=== PATIENT | female | born 1990 | race African-American/Black ===

== ENCOUNTER 2016-11-09 18:51 | Emergency (ER) | payer MEDICAID, OTHER ==
[2016-11-09] MEDS ORDERED: PENICILLIN G BENZATHINE 1.2 MILLION UNIT/2 ML DISP.SYRIN IM ONE (19:49)
[2016-11-09] MEDS ORDERED: DEXAMETHASONE SOD PHOS INJ 10 MG/1 ML VIAL IM ONE (19:50)
[2016-11-09] MEDS ORDERED: IBUPROFEN 800 MG TABLET PO ONE (19:50)
--- NOTE | 2016-11-09 19:51 | ER Document Report ---
HPI - HPI Patient complains to provider of: sore throat, fever, headache Onset: Yesterday Onset/Duration: Sudden Quality of pain: Achy Severity: Severe Pain Level: 5 Context: Patient presents emergency department with complaints of sore throat headache fever started yesterday. Patient reports she went to urgent care and they sent her here. Patient received Tylenol before coming over here. She reports fever but has not been taking her temperature. On arrival her temperature was 101. Unknown exposure to strep. Denies vomiting diarrhea. Associated Symptoms: Fever, Sore throat Exacerbated by: Denies Relieved by: Denies Similar symptoms previously: Yes Recently seen / treated by doctor: Yes - DERM Skin Color: Normal Past Medical History - General Information source: Patient Last Menstrual Period: last month - Social History Smoking Status: Unknown if Ever Smoked Cigarette use (# per day): No Frequency of alcohol use: None Drug Abuse: None Occupation: student Lives with: Family Family History: None Patient has suicidal ideation: No Patient has homicidal ideation: No - Medical History Medical History: Negative Renal/ Medical History: Denies: Hx Peritoneal Dialysis Surgical Hx: Negative Vertical Provider Document - CONSTITUTIONAL Agree With Documented VS: Yes Exam Limitations: No Limitations General Appearance: WD/WN, No Apparent Distress - INFECTION CONTROL TRAVEL OUTSIDE OF THE [place] IN LAST 30 DAYS: No - HEENT HEENT: Atraumatic, Normocephalic, PERRLA, Pharyngeal Exudate, Pharyngeal Erythema - No peritonsillar abscess good clear voice no trismus, opens mouth wide. negative: Conjuctival Injection - NECK Neck: Normal Inspection, Supple. negative: Lymphadenopathy-Left, Lymphadenopathy-Right - RESPIRATORY Respiratory: Breath Sounds Normal, No Respiratory Distress O2 Sat by Pulse Oximetry: 97 - CARDIOVASCULAR Cardiovascular: Regular Rhythm - GI/ABDOMEN Gastrointestinal: Abdomen Soft, Abdomen Non-Tender - BACK Back: Normal Inspection - MUSCULOSKELETAL/EXTREMETIES Musculoskeletal/Extremeties: SIDNEY OWUSU - NEURO Level of Consciousness: Awake, Alert, Appropriate Motor/Sensory: No Motor Deficit - DERM Integumentary: Warm, Dry Course - Re-evaluation Re-evalutation: 11/10/16 Patient instructed on the importance of monitoring temperature is taking Tylenol or Motrin as indicated. Patient was also instructed on importance of changing her toothbrush. She was instructed that strep throat is very contagious. She verbalized understanding to all instructions. - Vital Signs Vital signs: Temp Pulse Resp BP Pulse Ox 101.7 F H 110 H 16 104/59 L 97 11/09/16 18:55 11/09/16 18:55 11/09/16 18:55 11/09/16 18:55 11/09/16 18:55 Discharge - Discharge Clinical Impression: Tonsillar exudate, Sore throat Fever Qualifiers: Fever type: unspecified Qualified Code(s): R50.9 - Fever, unspecified Headache Qualifiers: Headache chronicity pattern: unspecified pattern Intractability: not intractable Condition: Stable Disposition: HOME, SELF-CARE Instructions: Fever ([facility]), Penicillins ([facility]), Steroid Medication Injection, Acetaminophen, Use of [id number]-Ipstfam Ibuprofen ([facility]), Sore Throat ([facility]) Additional Instructions: *You have been evaluated for a sore throat, tonsillar exudate, fever, headache *Monitor temperature, take Tylenol or ibuprofen as indicated *Warm salt water gargles and throat lozenges for comfort *Change toothbrush *Do not let anyone drink/eat after you *Good hand washing *Follow-up with a primary care provider within one week for recheck. *Return to ED for worsening condition change, needs, concerns trouble breathing trouble swallowing. Forms: Parent Work Note, Return to School
[2016-11-09 20:43] VITALS: BP 102/52
== END 2016-11-09 20:43 | disposition home or self-care (01) ==
LOC: ER 18:51
DX: J02.9 Acute pharyngitis, unspecified (principal); R51 Headache; R50.9 Fever, unspecified
CPT/HCPCS: 99282; 96372; J0561; J1100

== ENCOUNTER 2016-11-23 03:39 | Emergency (ER) | payer OTHER ==
[2016-11-23] MEDS ORDERED: LIDOCAINE 1% INJ-PF (10 MG/ML) 30 ML SDV INJ ONE (06:13)
--- NOTE | 2016-11-23 08:27 | ER Document Report ---
ED General - General Chief Complaint: Finger Injury Stated Complaint: LEFT HAND INJURY Time Seen by Provider: 11/23/16 06:10 Mode of Arrival: Ambulatory Information source: Patient Notes: 26-year-old female presents with crush injury to her left hand ring finger. Patient notes her nail appears to be hanging off. Tetanus is up-to-date TRAVEL OUTSIDE OF THE [place] IN LAST 30 DAYS: No - HPI Onset: Just prior to arrival Onset/Duration: Sudden Quality of pain: Sharp Severity: Moderate Pain Level: 2 Associated symptoms: None Exacerbated by: Movement Relieved by: Denies Similar symptoms previously: No Recently seen / treated by doctor: No - Related Data Allergies/Adverse Reactions: No Known Allergies Allergy (Unverified 11/09/16 18:55) Past Medical History - Social History Smoking Status: Never Smoker Cigarette use (# per day): No Chew tobacco use (# tins/day): No Smoking Education Provided: No Family History: None Patient has suicidal ideation: No Patient has homicidal ideation: No Renal/ Medical History: Denies: Hx Peritoneal Dialysis Review of Systems - Review of Systems Notes: PHYSICAL EXAMINATION: GENERAL: Well-appearing, well-nourished and in no acute distress. HEAD: Atraumatic, normocephalic. EYES: Pupils equal round and reactive to light, extraocular movements intact, conjunctiva are normal. ENT: Nares patent, oropharynx clear without exudates. Moist mucous membranes. NECK: Normal range of motion, supple without lymphadenopathy LUNGS: Breath sounds clear to auscultation bilaterally and equal. No wheezes rales or rhonchi. HEART: Regular rate and rhythm without murmurs ABDOMEN: Soft, nontender, nondistended abdomen. No guarding, no rebound. No masses appreciated. Female : deferred Musculoskeletal: Normal range of motion, no pitting or edema. No cyanosis. NEUROLOGICAL: Cranial nerves grossly intact. Normal speech, normal gait. Normal sensory, motor exams PSYCH: Normal mood, normal affect. SKIN: left hand 5th digit small abrasion to the lateral aspect of the distal tip , left hand 4th digit avulsion injury proximal ot the nail bed measuring 3 cm Physical Exam - Vital signs Vitals: Temp Pulse Resp BP Pulse Ox 98.4 F 74 18 114/65 98 11/23/16 03:47 11/23/16 03:47 11/23/16 03:47 11/23/16 03:47 11/23/16 03:47 Course - Re-evaluation Re-evalutation: 11/23/16 08:30 X-ray is consistent with a tuft fracture, no bleeding or laceration is noted under the nail itself however there is an avulsion behind the nailbed, I have explained to the patient thoroughly that she will probably lose the nail, area was cleansed extensively sutures were placed. Patient will be started on antibiotics very strict return precautions have been provided but given presentation I have poor prognosis for the aspect distally of the finger, I will give the patient orthopedic follow-up Patient states she understands the risks of her injury After performing a Medical Screening Examination, I estimate there is LOW risk for INTRACRANIAL HEMORRHAGE, UNSTABLE SPINE FRACTURE, CENTRAL CORD SYNDROME, CAUDA EQUINA, THORACIC AORTIC DISSECTION, PNEUMOTHORAX, PERFORATED BOWEL, RUPTURED ABDOMINAL AORTIC ANEURYSM, ACUTE TENDON RUPTURE, COMPARTMENT SYNDROME, thus I consider the discharge disposition reasonable. Also, there is no evidence or peritonitis, sepsis, or toxicity. I have reevaluated this patient multiple times and no significant life threatening changes are noted. The patient and I have discussed the diagnosis and risks, and we agree with discharging home to follow-up with their primary doctor with the understanding that symptoms and presentations can change. We also discussed returning to the Emergency Department immediately if new or worsening symptoms occur. We have discussed the symptoms which are most concerning (e.g., bloody stool, fever, changing or worsening pain, vomiting) that necessitate immediate return. - Vital Signs Vital signs: Temp Pulse Resp BP Pulse Ox 98.4 F 74 18 114/65 98 11/23/16 03:47 11/23/16 03:47 11/23/16 03:47 11/23/16 03:47 11/23/16 03:47 - Diagnostic Test Radiology reviewed: Image reviewed, Reports reviewed - tuft fracture, report given to the patient Discharge - Discharge Clinical Impression: Crush injury Closed fracture of tuft of distal phalanx of finger Qualifiers: Encounter type: initial encounter Qualified Code(s): S62.639A - Displaced fracture of distal phalanx of unspecified finger, initial encounter for closed fracture Laceration of finger Qualifiers: Encounter type: initial encounter Qualified Code(s): S61.219A - Laceration without foreign body of unspecified finger without damage to nail, initial encounter Condition: Stable Disposition: HOME, SELF-CARE Instructions: Laceration Care ([facility]), Antibiotic Ointment Protection ([facility]) Prescriptions: Cephalexin Monohydrate [Keflex 500 mg Capsule] 500 mg PO QID #40 capsule Oxycodone HCl/Acetaminophen [Percocet 5-325 mg Tablet] 1 - 2 tab PO Q4H PRN #15 tablet PRN Reason: Referrals: BRIANNA MARMOLEJO DO [ACTIVE STAFF] - Follow up tomorrow
[2016-11-23 08:32] VITALS: BP 100/56
== END 2016-11-23 08:32 | disposition home or self-care (01) ==
LOC: ER 03:39
PROC: 0HQGXZZ Repair Left Hand Skin, External Approach (ICD-10-PCS; principal; 2016-11-23)
DX: S62.639A Displaced fracture of distal phalanx of unspecified finger, initial encounter for closed fracture (principal); S61.219A Laceration without foreign body of unspecified finger without damage to nail, initial encounter; X58.XXXA Exposure to other specified factors, initial encounter
CPT/HCPCS: 99283; 73130; 12002; J3490

== ENCOUNTER 2016-12-08 09:31 | Emergency (ER) | payer OTHER ==
--- NOTE | 2016-12-08 09:39 | ER Document Report ---
ED Medical Screen (RME) - General Stated Complaint: ABDOMINAL CRAMPING Time Seen by Provider: 12/08/16 09:39 Notes: Patient says that she had some pelvic cramping yesterday and then noticed some spotting this morning when she wiped with toilet paper. She had her last cycle at the end of October and believe she is . G4, P1, a 2. No care yet. History of a D&C but no other pelvic surgeries. On no regular prescription medications. TRAVEL OUTSIDE OF THE [place] IN LAST 30 DAYS: No - Related Data Allergies/Adverse Reactions: No Known Allergies Allergy (Unverified 11/09/16 18:55) Past Medical History Renal/ Medical History: Denies: Hx Peritoneal Dialysis Physical Exam - Vital signs Vitals: Temp Pulse Resp BP Pulse Ox 98.2 F 73 16 113/61 100 12/08/16 09:35 12/08/16 09:35 12/08/16 09:35 12/08/16 09:35 12/08/16 09:35 Course - Vital Signs Vital signs: Temp Pulse Resp BP Pulse Ox 98.2 F 73 16 113/61 100 12/08/16 09:35 12/08/16 09:35 12/08/16 09:35 12/08/16 09:35 12/08/16 09:35
--- NOTE | 2016-12-08 10:47 | ER Document Report ---
ED GI/ - General Chief Complaint: Abdominal Cramping Stated Complaint: ABDOMINAL CRAMPING Time Seen by Provider: 12/08/16 09:39 Mode of Arrival: Ambulatory Information source: Patient TRAVEL OUTSIDE OF THE [place] IN LAST 30 DAYS: No - HPI Patient complains to provider of: Pelvic pain, , Vaginal bleeding Onset: Yesterday Timing/Duration: Intermittent Quality of pain: Cramping Severity at maximum: Mild Severity in ED: Mild Pain Level: 1 Location: Pelvis Vaginal bleeding (Compared to normal period): Spotting Menstrual period history: Associated symptoms: None Exacerbated by: Denies Relieved by: Denies Similar symptoms previously: Yes Recently seen / treated by doctor: No Notes: 12/08/16 10:46 Patient is a 26-year-old female who presents to the emergency room complaining of, and vaginal bleeding started yesterday, she reports being with her last menstrual period sometime in late November, she is with denies any nausea or vomiting, no fever or chills, no urinary symptoms, h/o prior D&C - Related Data Allergies/Adverse Reactions: No Known Allergies Allergy (Unverified 11/09/16 18:55) Past Medical History - General Information source: Patient - Social History Smoking Status: Unknown if Ever Smoked Family History: None Patient has suicidal ideation: No Patient has homicidal ideation: No Renal/ Medical History: Denies: Hx Peritoneal Dialysis Review of Systems - Review of Systems Constitutional: No symptoms reported EENT: No symptoms reported Cardiovascular: No symptoms reported Respiratory: No symptoms reported Gastrointestinal: No symptoms reported Genitourinary: No symptoms reported Female Genitourinary: See HPI Musculoskeletal: No symptoms reported Skin: No symptoms reported Hematologic/Lymphatic: No symptoms reported Neurological/Psychological: No symptoms reported -: Yes All other systems reviewed and negative Physical Exam - Vital signs Vitals: Temp Pulse Resp BP Pulse Ox 98.2 F 73 16 113/61 100 12/08/16 09:35 12/08/16 09:35 12/08/16 09:35 12/08/16 09:35 12/08/16 09:35 Interpretation: Normal - General General appearance: Appears well, Alert - HEENT Head: Normocephalic, Atraumatic Eyes: Normal Pupils: PERRL - Respiratory Respiratory status: No respiratory distress Chest status: Nontender Breath sounds: Normal Chest palpation: Normal - Cardiovascular Rhythm: Regular Heart sounds: Normal auscultation Murmur: No - Abdominal Inspection: Normal Distension: No distension Bowel sounds: Normal Tenderness: Nontender Organomegaly: No organomegaly - Back Back: Normal, Nontender - Extremities General upper extremity: Normal inspection, Nontender, Normal color, Normal ROM , Normal temperature General lower extremity: Normal inspection, Nontender, Normal color, Normal ROM , Normal temperature, Normal weight bearing. No: Jj's sign - Neurological Neuro grossly intact: Yes Cognition: Normal Orientation: AAOx4 Donya Coma Scale Eye Opening: Spontaneous Donya Coma Scale Verbal: Oriented [place] Coma Scale Motor: Obeys Commands Donya Coma Scale Total: 15 Speech: Normal Motor strength normal: LUE, RUE, LLE, RLE Sensory: Normal - Psychological Associated symptoms: Normal affect, Normal mood - Skin Skin Temperature: Warm Skin Moisture: Dry Skin Color: Normal Course - Re-evaluation Re-evalutation: 12/08/16 11:42 Lab and imaging findings were discussed with patient at bedside, she was advised to follow-up with HVAC SERVICE MANAGER within the next week, she reports she actually has an appointment with [facility] coming [facility], patient was advised to return if symptoms worsen, patient acknowledges understanding and agreement with this plan - Vital Signs Vital signs: Temp Pulse Resp BP Pulse Ox 98.2 F 73 16 113/61 100 12/08/16 09:35 12/08/16 09:35 12/08/16 09:35 12/08/16 09:35 12/08/16 09:35 - Laboratory Result Diagrams: 12/08/16 10:30 Laboratory results interpreted by me: 12/08/16 12/08/16 10:30 10:30 RDW 15.1 H Urine Urobilinogen 2.0 H - Diagnostic Test Radiology reviewed: Image reviewed, Reports reviewed Discharge - Discharge Clinical Impression: Vaginal bleeding before 22 weeks gestation Condition: Stable Disposition: HOME, SELF-CARE Instructions: Vaginal Bleeding ([facility]), Bleeding During Early ([facility]), Pelvic Pain in ([facility]), ([facility]), [employer]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 Return to the emergency room immediately if symptoms worsen or any additional concerns.
[2016-12-08 10:50] LABS: ABSOLUTE EOSINOPHILS # (AUTO) 0.1 10^3/uL (0.0-0.6); ABSOLUTE LYMPHOCYTES (AUTO) 1.2 10^3/uL (0.5-4.7); ABSOLUTE MONOCYTES (AUTO) 0.4 10^3/uL (0.1-1.4); ABSOLUTE NEUT (AUTO) 2.7 10^3/uL (1.7-8.2); BASOPHILS % (AUTO) 0.7 % (0-2); EOSINOPHILS % (AUTO) 2.2 % (0-6); HEMATOCRIT 37.7 % (36.0-47.0); HEMOGLOBIN 12.1 g/dL (12.0-15.5); HGB HCT DIFFERENCE -1.4; LYMPHOCYTES % (AUTO) 27.5 % (13-45); MEAN CORPUSCULAR HEMOGLOBIN 27.9 pg (27.0-33.4); MEAN CORPUSCULAR HGB CONC 32.1 g/dL (32.0-36.0); MEAN CORPUSCULAR VOLUME 87 fl (80-97); MONOCYTES % (AUTO) 8.4 % (3-13); RED BLOOD COUNT 4.34 10^6/uL (3.72-5.28); RED CELL DISTRIBUTION WIDTH 15.1 % (11.5-14.0); SEGMENTED NEUTROPHILS % (AUTO) 61.2 % (42-78); WHITE BLOOD COUNT 4.4 10^3/uL (4.0-10.5)
--- NOTE | 2016-12-08 11:10 | RADIOLOGY REPORT (SQ) ---
EXAM DESCRIPTION: U/S OB TRANSVAGINAL W/O DOP COMPLETED DATE/TIME: 12/08/2016 10:58 am REASON FOR STUDY: with spotting COMPARISON: None. TECHNIQUE: Transvaginal static and realtime grayscale images acquired of the pelvis. Additional eduardo cted spectral and color Doppler images recorded. All images stored on PACs. bHCG: Not available. LIMITATIONS: None. FINDINGS: FETUS: Living intrauterine . EGA by gestational sac size: 5 weeks 3 days. INNA: 08/07/2017. FHR: Not seen beats per minute. SUBCHORIONIC BLEED: Yes SIZE OF BLEED: Sub cm UTERUS: 90 x 54 x 45 mm. No masses. CERVICAL LENGTH: 3.2 cm. Closed. RIGHT ADNEXA: 37 x 22 x 20 mm. No adnexal free fluid. No adnexal masses. LEFT ADNEXA: 26 x 15 x 17 mm. No adnexal free fluid. No adnexal masses. FREE FLUID: None. OTHER: No other significant finding. IMPRESSION: There is a gestational sac suggestive of a gestation of 5 weeks 3 days. pole is n ot identified. heart beat was not seen. There was a small subchorionic bleed. Follow-up as c linically indicated. Trimester of : First - 0 to 13 weeks. TECHNICAL DOCUMENTATION: JOB ID: [id number] [employer]- All Rights Reserved
[2016-12-08 11:17] LABS: APPEARANCE,URINE SLIGHTLY-CLOUDY; BILIRUBIN,URINE NEGATIVE (NEGATIVE); GLUCOSE, URINE NEGATIVE (NEGATIVE); KETONES,URINE NEGATIVE (NEGATIVE); LEUKOCYTE ESTERASE,URINE NEGATIVE (NEGATIVE); NITRITE,URINE NEGATIVE (NEGATIVE); PROTEIN,URINE NEGATIVE (NEGATIVE); URINE SPECIFIC GRAVITY 1.023
[2016-12-08] MEDS ORDERED: ACETAMINOPHEN 325 MG TABLET PO ONE (11:42)
[2016-12-08 12:00] VITALS: BP 105/47
== END 2016-12-08 12:09 | disposition home or self-care (01) ==
LOC: ER 09:31
DX: O20.8 Other hemorrhage in early pregnancy (principal); O26.891 Other specified pregnancy related conditions, first trimester; R10.2 Pelvic and perineal pain; Z3A.01 Less than 8 weeks gestation of pregnancy
CPT/HCPCS: 36415; 76817; 81001; 84702; 85025; 86900; 86901; 87086; 99284

== ENCOUNTER 2017-01-20 22:11 | Emergency (ER) | payer OTHER ==
[2017-01-20 23:15] LABS: ABSOLUTE EOSINOPHILS # (AUTO) 0.3 10^3/uL (0.0-0.6); ABSOLUTE MONOCYTES (AUTO) 0.7 10^3/uL (0.1-1.4); BASOPHILS % (AUTO) 0.4 % (0-2); EOSINOPHILS % (AUTO) 2.9 % (0-6); HEMATOCRIT 37.7 % (36.0-47.0); HEMOGLOBIN 11.9 g/dL (12.0-15.5); LYMPHOCYTES % (AUTO) 22.4 % (13-45); MEAN CORPUSCULAR HEMOGLOBIN 27.7 pg (27.0-33.4); MEAN CORPUSCULAR HGB CONC 31.7 g/dL (32.0-36.0); MEAN CORPUSCULAR VOLUME 88 fl (80-97); MONOCYTES % (AUTO) 7.8 % (3-13); RED BLOOD COUNT 4.31 10^6/uL (3.72-5.28); RED CELL DISTRIBUTION WIDTH 15.3 % (11.5-14.0); SEGMENTED NEUTROPHILS % (AUTO) 66.5 % (42-78); WHITE BLOOD COUNT 9.1 10^3/uL (4.0-10.5)
[2017-01-21] LABS: APPEARANCE,URINE CLEAR; BILIRUBIN,URINE NEGATIVE (NEGATIVE); GLUCOSE, URINE NEGATIVE (NEGATIVE); KETONES,URINE NEGATIVE (NEGATIVE); LEUKOCYTE ESTERASE,URINE NEGATIVE (NEGATIVE); NITRITE,URINE NEGATIVE (NEGATIVE); PROTEIN,URINE NEGATIVE (NEGATIVE); URINE SPECIFIC GRAVITY 1.009; UROBILINOGEN,URINE NEGATIVE mg/dL (<2.0)
--- NOTE | 2017-01-21 00:34 | RADIOLOGY REPORT (SQ) ---
EXAM DESCRIPTION: U/S 1TRIMESTER/1GEST W/DOPPLER COMPLETED DATE/TIME: 01/21/2017 12:23 am REASON FOR STUDY: vaginal bleeding COMPARISON: 12/08/2016. TECHNIQUE: Transabdominal static and realtime grayscale images acquired of the pelvis. Additional se lected spectral and color Doppler images recorded. All images stored on PACs. bHCG: Not applicable. LIMITATIONS: None. FINDINGS: FETUS: Living intrauterine . EGA: 11 week 2 day. INNA: 08/05/2017. FHR: 175 beats per minute. SUBCHORIONIC BLEED: Yes. SIZE OF BLEED: 1.0 x 6.2 x 8.2 cm. Movement of fluid and debris noted on real-time imaging. UTERUS: No masses. No anomalies. CERVICAL LENGTH: 3.4 cm. Closed. RIGHT ADNEXA: Normal ovary with normal vascular flow. No adnexal free fluid. No adnexal masses. LEFT ADNEXA: Ovary not identified. No adnexal free fluid. No adnexal masses. FREE FLUID: None. OTHER: No other significant finding. IMPRESSION: LIVING INTRAUTERINE . EGA 11 WEEK 2 DAY. LARGE SUBCHORIONIC HEMORRHAGE. MOVEMENT OF FLUID AND DEBRIS NOTED ON REAL-TIME IMAGING, CONCERNING F OR ACTIVE BLEEDING. Trimester of : First - 0 to 13 weeks. TECHNICAL DOCUMENTATION: JOB ID: [id number] [employer]- All Rights Reserved
--- NOTE | 2017-01-21 02:07 | ER Document Report ---
ED GI/ - General Chief Complaint: Vag Bleeding, +preg <12wks Stated Complaint: VAGINAL BLEEDING Time Seen by Provider: 01/21/17 00:56 Mode of Arrival: Ambulatory Information source: Patient Notes: 26-year-old female presented to ED for lower abdominal pain and cramping with vaginal bleeding. She is approximately 11 weeks . 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 She is currently on progesterone for her cervix. TRAVEL OUTSIDE OF THE [place] IN LAST 30 DAYS: No - HPI Patient complains to provider of: Pelvic pain, , Vaginal bleeding Onset: This evening Timing/Duration: Gradual Quality of pain: Cramping Severity at maximum: Moderate Severity in ED: Moderate Pain Level: 3 Location: Low back, Pelvis Vaginal bleeding (Compared to normal period): Heavier LMP: 11 Weeks : 7 Para: 1 Abortions: 5 heart tones (bpm): 175 EDC: 08/05/16 ABO type: o Rh factor: + OB ultrasound done: Yes Associated symptoms: Nausea, Other - pelvic pain vaginal bleeding Exacerbated by: Movement Relieved by: Denies Similar symptoms previously: Yes Recently seen / treated by doctor: No - Related Data Allergies/Adverse Reactions: No Known Allergies Allergy (Unverified 11/09/16 18:55) Past Medical History - General Information source: Patient - Social History Smoking Status: Former Smoker Cigarette use (# per day): No Chew tobacco use (# tins/day): No Smoking Education Provided: No Frequency of alcohol use: Rare Drug Abuse: None 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 Lives with: Family, Friend Family History: None Patient has suicidal ideation: No Patient has homicidal ideation: No - Past Medical History Cardiac Medical History: Reports: None Pulmonary Medical History: Reports: None EENT Medical History: Reports: None Neurological Medical History: Reports: None Endocrine Medical History: Reports: None Renal/ Medical History: Reports: None Malignancy Medical History: Reports: None GI Medical History: Reports: None Musculoskeltal Medical History: Reports None Skin Medical History: Reports None Psychiatric Medical History: Reports: None Traumatic Medical History: Reports: None Infectious Medical History: Reports: None Surgical Hx: Negative Past Surgical History: Reports: None Review of Systems - Review of Systems Constitutional: No symptoms reported EENT: No symptoms reported Cardiovascular: No symptoms reported Respiratory: No symptoms reported Gastrointestinal: No symptoms reported Genitourinary: No symptoms reported Female Genitourinary: No symptoms reported Musculoskeletal: No symptoms reported Skin: No symptoms reported Hematologic/Lymphatic: No symptoms reported Neurological/Psychological: No symptoms reported -: Yes All other systems reviewed and negative Physical Exam - Vital signs Vitals: Temp Pulse Resp BP Pulse Ox 98.4 F 66 16 111/56 L 100 01/20/17 22:31 01/20/17 22:31 01/20/17 22:31 01/20/17 22:31 01/20/17 22:31 Interpretation: Normal - General General appearance: Appears well, Alert - HEENT Head: Normocephalic, Atraumatic Eyes: Normal Pupils: PERRL - Respiratory Respiratory status: No respiratory distress Chest status: Nontender Breath sounds: Normal Chest palpation: Normal - Cardiovascular Rhythm: Regular Heart sounds: Normal auscultation Murmur: No - Abdominal Inspection: Normal Distension: No distension Bowel sounds: Normal Tenderness: Nontender Organomegaly: No organomegaly - Genitourinary External exam: Normal Speculum exam: Cervix closed Vaginal bleeding: Heavy Biman[place] exam: Normal - Back Back: Normal, Nontender - Extremities General upper extremity: Normal inspection, Nontender, Normal color, Normal ROM , Normal temperature General lower extremity: Normal inspection, Nontender, Normal color, Normal ROM , Normal temperature, Normal weight bearing. No: Jj's sign - Neurological Neuro grossly intact: Yes Cognition: Normal Orientation: AAOx4 [place] Coma Scale Eye Opening: Spontaneous [place] Coma Scale Verbal: Oriented [place] Coma Scale Motor: Obeys Commands [place] Coma Scale Total: 15 Speech: Normal Motor strength normal: LUE, RUE, LLE, RLE Sensory: Normal - Psychological Associated symptoms: Anxious - Skin Skin Temperature: Warm Skin Moisture: Dry Skin Color: Normal Course - Re-evaluation Re-evalutation: 01/21/17 07:42 Dr. Bowers SURVEILLANCE SYSTEMS ENGINEER was consulted last night before discharge. He stated the [facility] and follow-up. - Vital Signs Vital signs: Temp Pulse Resp BP Pulse Ox 97.9 F 78 18 107/54 L 98 01/21/17 02:38 01/21/17 02:38 01/21/17 02:38 01/21/17 02:38 01/21/17 02:38 - Laboratory Result Diagrams: 01/20/17 22:55 Laboratory results interpreted by me: 01/20/17 01/20/17 01/20/17 22:55 22:55 23:39 Hgb 11.9 L MCHC 31.7 L RDW 15.3 H Beta HCG, Quant 87796.00 H Urine Blood LARGE H - Diagnostic Test Radiology reviewed: Image reviewed, Reports reviewed Discharge - Discharge Clinical Impression: Vaginal bleeding before 22 weeks gestation, Subchorionic hematoma in first trimester Condition: Stable Disposition: HOME, SELF-CARE Additional Instructions: : You are . care is best started as early in as possible. If you're unsure about continuing this , you should discuss this with your physician or with traveling sales representative at [facility]. You should take only medications approved by your physician. Acetaminophen can safely be taken for minor pains. As a rule, medication for chronic conditions such as asthma or seizures can safely be continued. You should discuss with the physician every medicine you take. Any regular exercise program can be continued. Talk to your physician, however, before engaging in competitive or demanding sports. Alcohol, smoking, and "street drugs" are dangerous to your baby. Cocaine is especially dangerous. Don't use any illicit drugs! BLEEDING DURING EARLY : You have been evaluated for passing blood while . While we take this symptom very seriously, most women with your degree of bleeding will go on to have a perfectly normal baby. At this time, there is no indication that a miscarriage will occur. (A miscarriage occurs when the fetus is abnormal. There is no medicine or treatment to prevent it.) A more serious cause of bleeding is tubal (or ectopic) . An ultrasound usually can show whether the is in the uterus or in the tube. Sometimes in early , no fetus is seen. In this case, careful follow-up, including repeat blood tests and repeat ultrasound, is necessary. Do not douche or have sex for at least a week, or until OK'd by the doctor. Don't use tampons. Call the doctor or return for re-examination if there is an increase in bleeding or cramping, extreme weakness, fainting, new abdominal pain, fever, or passage of tissue. FOLLOW-UP CARE: If you have been referred to a physician for follow-up care, call the physician s office for an appointment as you were instructed or within the next two days. If you experience worsening or a significant change in your symptoms (very heavy bleeding with large clots of blood, passage of tissue, more severe abdominal / pelvic pain or cramping, feeling faint or severe weakness, fever, etc.), notify the physician immediately or return to the Emergency Department at any time for re-evaluation. OBSTETRIC-GYNECOLOGIC (OB-PUNCHBOARD FILLING MACHINE OPERATOR) PHYSICIANS IN [place]: [facility] [address] [place] [address] [phone] [facility] at 8:00 in the morning and let them know that you are to follow-up today for vaginal bleeding. Please take your labs and ultrasound with you to this appointment. Referrals: ROSE FREEMAN MD [Primary Care Provider] - 01/21/17
[2017-01-21 02:40] VITALS: BP 107/54
[2017-01-21 03:30] LABS: CHLAM PCR NOT DETECTED (NOT DETECT)
== END 2017-01-21 02:40 | disposition home or self-care (01) ==
LOC: ER 22:11
DX: O20.8 Other hemorrhage in early pregnancy (principal); O26.891 Other specified pregnancy related conditions, first trimester; R10.2 Pelvic and perineal pain; R11.0 Nausea; Z3A.11 11 weeks gestation of pregnancy; Z87.891 Personal history of nicotine dependence; Z87.59 Personal history of other complications of pregnancy, childbirth and the puerperium
CPT/HCPCS: 36415; 76801; 81001; 84702; 85025; 87210; 87491; 87591; 93976; 99284

== ENCOUNTER 2017-01-30 14:00 | Emergency (ER) | payer OTHER ==
--- NOTE | 2017-01-30 14:49 | ER Document Report ---
ED Medical Screen (RME) - General Chief Complaint: Vag Bleeding, +preg <12wks Stated Complaint: VAGINAL BLEEDING Time Seen by Provider: 01/30/17 14:43 Mode of Arrival: Ambulatory Information source: Patient TRAVEL OUTSIDE OF THE [place] IN LAST 30 DAYS: No - HPI Onset: This morning Onset/Duration: Worse - SMALLER AMT. OF BLEEDING DAILY Context: KNOWN 12wk5d , SONO LAST WK SHOWED [facility] BUT SMALLER THAN BEFORE. Quality of pain: Cramping Associated Symptoms: None Exacerbated by: Denies Relieved by: Denies Similar symptoms previously: Yes Recently seen / treated by doctor: Yes - LAST WEEK - Related Data Smoking: Non-smoker Frequency of alcohol use: None Drug Abuse: None Allergies/Adverse Reactions: shrimp Allergy (Verified 01/30/17 14:11) Past Medical History - General Information source: Patient Last Menstrual Period: 11/02/16 - Social History Cigarette use (# per day): No Chew tobacco use (# tins/day): No Frequency of alcohol use: None Drug Abuse: None Lives with: Spouse/Significant other - Medical History Medical History: Negative Renal/ Medical History: Denies: Hx Peritoneal Dialysis Surgical Hx: Negative Review of Systems - Review of Systems Constitutional: No symptoms reported EENT: No symptoms reported Cardiovascular: No symptoms reported Genitourinary: See HPI Physical Exam - Vital signs Vitals: Temp Pulse Resp BP Pulse Ox 98.6 F 94 16 121/49 L 99 01/30/17 14:06 01/30/17 14:06 01/30/17 14:06 01/30/17 14:06 01/30/17 14:06 Interpretation: Hypotensive. No: Tachycardic, Tachypneic, Febrile - General General appearance: Appears well, Alert In distress: None Course - Vital Signs Vital signs: Temp Pulse Resp BP Pulse Ox 98.6 F 94 16 121/49 L 99 01/30/17 14:06 01/30/17 14:06 01/30/17 14:06 01/30/17 14:06 01/30/17 14:06
[2017-01-30 16:01] LABS: ABSOLUTE BASOPHILS # (AUTO) 0.1 10^3/uL (0.0-0.2); ABSOLUTE EOSINOPHILS # (AUTO) 0.1 10^3/uL (0.0-0.6); ABSOLUTE LYMPHOCYTES (AUTO) 1.7 10^3/uL (0.5-4.7); ABSOLUTE MONOCYTES (AUTO) 0.7 10^3/uL (0.1-1.4); ABSOLUTE NEUT (AUTO) 5.3 10^3/uL (1.7-8.2); BASOPHILS % (AUTO) 0.6 % (0-2); EOSINOPHILS % (AUTO) 1.1 % (0-6); HEMATOCRIT 36.9 % (36.0-47.0); HEMOGLOBIN 12.2 g/dL (12.0-15.5); HGB HCT DIFFERENCE -0.3; LYMPHOCYTES % (AUTO) 22.1 % (13-45); MEAN CORPUSCULAR HEMOGLOBIN 28.5 pg (27.0-33.4); MEAN CORPUSCULAR VOLUME 86 fl (80-97); MONOCYTES % (AUTO) 8.3 % (3-13); RED BLOOD COUNT 4.27 10^6/uL (3.72-5.28); RED CELL DISTRIBUTION WIDTH 14.8 % (11.5-14.0); SEGMENTED NEUTROPHILS % (AUTO) 67.9 % (42-78); WHITE BLOOD COUNT 7.9 10^3/uL (4.0-10.5)
--- NOTE | 2017-01-30 16:53 | RADIOLOGY REPORT (SQ) ---
EXAM DESCRIPTION: U/S [id number] TRNABD 1GES W/ODOP COMPLETED DATE/TIME: 01/30/2017 4:43 pm REASON FOR STUDY: VAG. BLEEDING CRAMPS COMPARISON: 01/20/2017. TECHNIQUE: Transabdominal static and realtime grayscale images acquired of the pelvis. Additional se lected spectral and color Doppler images recorded. All images stored on PACs. bHCG: Not applicable. LIMITATIONS: None. FINDINGS: FETUS: Living intrauterine . EGA: 13 week 2 day. INNA: 08/05/2017. FHR: 155 beats per minute. SUBCHORIONIC BLEED: Yes. SIZE OF BLEED: 2.1 x 8.3 x 9.1 cm. UTERUS: No masses. No anomalies. CERVICAL LENGTH: 3.3 cm. Closed. RIGHT ADNEXA: Normal ovary with normal vascular flow. No adnexal free fluid. No adnexal masses. LEFT ADNEXA: Normal ovary with normal vascular flow. No adnexal free fluid. No adnexal masses. FREE FLUID: None. OTHER: No other significant finding. IMPRESSION: LIVING INTRAUTERINE . EGA 13 WEEK 2 DAY. AGAIN SEEN IS A LARGE FLUID COLLECTION SURROUNDING THE GESTATIONAL SAC CONCERNING FOR SUBCHORIONIC BL EED, UNCHANGED. Trimester of : First - 0 to 13 weeks. TECHNICAL DOCUMENTATION: JOB ID: [id number] [email or web address] All Rights Reserved
--- NOTE | 2017-01-30 17:08 | ER Document Report ---
ED GI/ - General Chief Complaint: Vag Bleeding, +preg <12wks Stated Complaint: VAGINAL BLEEDING Time Seen by Provider: 01/30/17 14:43 Mode of Arrival: Ambulatory Information source: Patient TRAVEL OUTSIDE OF THE [place] IN LAST 30 DAYS: No - HPI Patient complains to provider of: , Vaginal bleeding Onset: Other - 2 weeks ago Timing/Duration: Waxing and waning Quality of pain: Achy, Cramping Severity at maximum: Mild Severity in ED: Mild Location: Pelvis Associated symptoms: None Exacerbated by: Denies Relieved by: Denies Similar symptoms previously: Yes Recently seen / treated by doctor: Yes Notes: 01/30/17 19:11 Patient is a 26-year-old female who is , with multiple previous miscarriages, presenting to the emergency room stating she is approximately 12 weeks and 5 days with vaginal bleeding that has been waxing and waning over the past 2 weeks, she was seen in this emergency room 10 days ago, diagnosed with an 11 week 2 day positive IUP with a large subchorionic hemorrhage, she reports that she did then [facility] last week, the ultrasound her then and told her that it looked as though her subchorionic hemorrhage is getting smaller, however she continues to have bleeding and mild cramping - Related Data Allergies/Adverse Reactions: shrimp Allergy (Verified 01/30/17 14:11) Home Medications: Current Home Medications No Home Medications 01/30/17 [History] Past Medical History - General Information source: Patient Last Menstrual Period: 11/02/16 - Social History Smoking Status: Never Smoker Cigarette use (# per day): No Chew tobacco use (# tins/day): No Frequency of alcohol use: None Drug Abuse: None Lives with: Spouse/Significant other Family History: None - Medical History Medical History: Negative Renal/ Medical History: Denies: Hx Peritoneal Dialysis Surgical Hx: Negative Review of Systems - Review of Systems Constitutional: No symptoms reported EENT: No symptoms reported Cardiovascular: No symptoms reported Respiratory: No symptoms reported Gastrointestinal: No symptoms reported Genitourinary: No symptoms reported Female Genitourinary: See HPI Musculoskeletal: No symptoms reported Skin: No symptoms reported Hematologic/Lymphatic: No symptoms reported Neurological/Psychological: No symptoms reported -: Yes All other systems reviewed and negative Physical Exam - Vital signs Vitals: Temp Pulse Resp BP Pulse Ox 98.6 F 94 16 121/49 L 99 01/30/17 14:06 01/30/17 14:06 01/30/17 14:06 01/30/17 14:06 01/30/17 14:06 - Notes Notes: - General General appearance: Appears well, Alert In distress: None - HEENT Head: Normocephalic, Atraumatic Eyes: Normal Conjunctiva: Normal Extraocular movements intact: Yes Eyelashes: Normal Pupils: PERRL - Respiratory Respiratory status: No respiratory distress - Cardiovascular Rhythm: Regular - Abdominal Inspection: Normal - Back Back: Normal - Extremities General upper extremity: Normal inspection General lower extremity: Normal inspection - Neurological Neuro grossly intact: Yes Orientation: AAOx4 [place] Coma Scale Eye Opening: Spontaneous [place] Coma Scale Verbal: Oriented [place] Coma Scale Motor: Obeys Commands [place] Coma Scale Total: 15 - Psychological Associated symptoms: Normal affect, Normal mood - Skin Skin Temperature: Warm Skin Moisture: Dry Skin Color: Normal Course - Re-evaluation Re-evalutation: 01/30/17 19:12 Patient was discussed with on-call AMERICAN STUDIES PROFESSOR, Dr. Fonseca, imaging findings were discussed as well as patient's history, ultrasound shows that the IUP is still viable, therefore she advised patient to maintain pelvic rest and bed rest, follow-up in the office on Thursday as previously scheduled, return to the ER for any worsening of symptoms, this plan was discussed with patient and spouse at bedside who acknowledge understanding and agreement - Vital Signs Vital signs: Temp Pulse Resp BP Pulse Ox 98.6 F 61 14 108/58 L 100 01/30/17 14:06 01/30/17 17:15 01/30/17 17:15 01/30/17 17:15 01/30/17 17:15 - Laboratory Result Diagrams: 01/30/17 15:50 Laboratory results interpreted by me: 01/30/17 01/30/17 15:50 15:50 RDW 14.8 H Beta HCG, Quant 37136.00 H - Diagnostic Test Radiology reviewed: Image reviewed, Reports reviewed Discharge - Discharge Clinical Impression: Subchorionic hematoma in second trimester Qualifiers: Weeks of gestation: 12 weeks Qualified Code(s): Z3A.12 - 12 weeks gestation of Condition: Stable Disposition: HOME, SELF-CARE Instructions: Vaginal Bleeding ([facility]), ([facility]) Additional Instructions: Follow up with your primary care provider and AMERICAN STUDIES PROFESSOR in one to 2 days. Return to the emergency room immediately if symptoms worsen or any additional concerns. Maintain bedrest and pelvic rest.
[2017-01-30 17:17] VITALS: BP 108/58
== END 2017-01-30 17:15 | disposition home or self-care (01) ==
LOC: ER 14:00
DX: O43.891 Other placental disorders, first trimester (principal); O26.891 Other specified pregnancy related conditions, first trimester; R25.2 Cramp and spasm; Z3A.12 12 weeks gestation of pregnancy; Z87.59 Personal history of other complications of pregnancy, childbirth and the puerperium
CPT/HCPCS: 36415; 76801; 84702; 85025; 99284

== ENCOUNTER 2017-03-23 19:59 | Outpatient (CLI) | payer OTHER ==
[2017-03-23 20:47] LABS: APPEARANCE,URINE SLIGHTLY-CLOUDY; BILIRUBIN,URINE NEGATIVE (NEGATIVE); GLUCOSE, URINE NEGATIVE (NEGATIVE); KETONES,URINE NEGATIVE (NEGATIVE); LEUKOCYTE ESTERASE,URINE NEGATIVE (NEGATIVE); NITRITE,URINE NEGATIVE (NEGATIVE); PROTEIN,URINE NEGATIVE (NEGATIVE); URINE SPECIFIC GRAVITY 1.029
[2017-03-23 21:01] LABS: URINE BARBITURATES SCREEN NEGATIVE; URINE METHADONE SCREEN NEGATIVE; URINE OPIATES LOW NEGATIVE; URINE PHENCYCLIDINE SCREEN NEGATIVE
== END 2017-03-23 21:30 | disposition home or self-care (01) ==
LOC: LC 19:59
PROVIDERS: ATTEND Obstetrics & Gynecology
PROC: 4A1HXCZ Monitoring of Products of Conception, Cardiac Rate, External Approach (ICD-10-PCS; principal; 2017-03-23)
DX: O47.02 False labor before 37 completed weeks of gestation, second trimester (principal); Z3A.20 20 weeks gestation of pregnancy
CPT/HCPCS: 80307; 81001

== ENCOUNTER 2017-06-05 11:09 | Outpatient (CLI) | payer OTHER ==
[2017-06-05 11:59] LABS: APPEARANCE,URINE SLIGHTLY-CLOUDY; BILIRUBIN,URINE NEGATIVE (NEGATIVE); GLUCOSE, URINE NEGATIVE (NEGATIVE); KETONES,URINE NEGATIVE (NEGATIVE); LEUKOCYTE ESTERASE,URINE NEGATIVE (NEGATIVE); NITRITE,URINE NEGATIVE (NEGATIVE); PROTEIN,URINE NEGATIVE (NEGATIVE); URINE SPECIFIC GRAVITY 1.016; UROBILINOGEN,URINE NEGATIVE mg/dL (<2.0)
[2017-06-05 12:14] LABS: URINE BARBITURATES SCREEN NEGATIVE; URINE METHADONE SCREEN NEGATIVE; URINE OPIATES LOW NEGATIVE; URINE PHENCYCLIDINE SCREEN NEGATIVE
--- NOTE | 2017-06-05 12:21 | Progress Note ---
Provider Note Provider Note: complaining of lightheadedness and low back pain. heart RRR with mild systolic murmur. cx closed. rec-maternity support belt.
--- NOTE | 2017-06-05 12:52 | Non Stress Test Report ---
Non Stress Test Datetime Report Generated by CPN: 06/05/2017 12:52 DEMOGRAPHIC EGA NST: 35.1 INDICATION Indication for Study: Ordered by Provider VITAL SIGNS Temperature - NST: 98.8 Pulse - NST: 88 RESP - NST: 14 NBPSYS NST: 119 NBPDIA NST: 59 MONITORING Monitor Explained: Monitor Explained; Test Explained; Patient Verbalized Understanding Time on Monitor: 06/05/2017 11:23 Time off Monitor: 06/05/2017 12:15 NST Duration: 52 NST INTERVENTIONS NST Interventions: PO Hydration Physician Notified NST: [place] CNM BABY A: [id number] BABY A Movement : Present Contraction Frequency : none FHR Baseline : 135 Accelerations : 15X15 Decelerations : None Variability : Moderate 6-25bpm NST Review: Meets Criteria for Reactive NST NST Review and Verified By : [place] RNC NST Results: Reactive NST REPORT Report Trigger: Send Report
== END 2017-06-05 12:30 | disposition home or self-care (01) ==
LOC: LC 11:09
PROVIDERS: ATTEND Student in an Organized Health Care Education/Training Program
PROC: 4A1HXCZ Monitoring of Products of Conception, Cardiac Rate, External Approach (ICD-10-PCS; principal; 2017-06-05)
DX: O47.03 False labor before 37 completed weeks of gestation, third trimester (principal); Z3A.30 30 weeks gestation of pregnancy
CPT/HCPCS: 80307; 81001

== ENCOUNTER 2017-06-22 16:43 | Emergency (ER) | payer SELFPAY ==
--- NOTE | 2017-06-22 17:33 | ER Document Report ---
ED Medical Screen (RME) - General Chief Complaint: Breathing Difficulty Stated Complaint: DIFFICULTY BREATHING Time Seen by Provider: 06/22/17 17:31 Notes: Patient reports chest pain chest pressure and shortness of breath for several days. No previous history of DVTs or PEs. She is currently approx 32 weeks . TRAVEL OUTSIDE OF THE [place] IN LAST 30 DAYS: No - Related Data Allergies/Adverse Reactions: shrimp Allergy (Verified 06/22/17 16:48) Past Medical History - Social History Chew tobacco use (# tins/day): No Frequency of alcohol use: None Drug Abuse: None Renal/ Medical History: Denies: Hx Peritoneal Dialysis Physical Exam - Vital signs Vitals: Temp Pulse Resp BP Pulse Ox 98.4 F 92 16 118/53 L 98 06/22/17 16:57 06/22/17 16:57 06/22/17 16:57 06/22/17 16:57 06/22/17 16:57 Course - Vital Signs Vital signs: Temp Pulse Resp BP Pulse Ox 98.4 F 92 16 118/53 L 98 06/22/17 16:57 06/22/17 16:57 06/22/17 16:57 06/22/17 16:57 06/22/17 16:57
[2017-06-22 18:43] LABS: ABSOLUTE EOSINOPHILS # (AUTO) 0.2 10^3/uL (0.0-0.6); ABSOLUTE LYMPHOCYTES (AUTO) 1.1 10^3/uL (0.5-4.7); ABSOLUTE MONOCYTES (AUTO) 0.9 10^3/uL (0.1-1.4); ABSOLUTE NEUT (AUTO) 6.7 10^3/uL (1.7-8.2); BASOPHILS % (AUTO) 0.4 % (0-2); EOSINOPHILS % (AUTO) 2.6 % (0-6); HEMOGLOBIN 12.2 g/dL (12.0-15.5); HGB HCT DIFFERENCE 0.6; LYMPHOCYTES % (AUTO) 12.5 % (13-45); MEAN CORPUSCULAR HEMOGLOBIN 29.1 pg (27.0-33.4); MEAN CORPUSCULAR HGB CONC 33.8 g/dL (32.0-36.0); MEAN CORPUSCULAR VOLUME 86 fl (80-97); MONOCYTES % (AUTO) 9.7 % (3-13); RED BLOOD COUNT 4.18 10^6/uL (3.72-5.28); RED CELL DISTRIBUTION WIDTH 16.4 % (11.5-14.0); SEGMENTED NEUTROPHILS % (AUTO) 74.8 % (42-78)
[2017-06-22 19:01] LABS: ALANINE AMINOTRANSFERASE 22 U/L (9-52); ALBUMIN 3.4 g/dL (3.5-5.0); ALKALINE PHOSPHATASE 104 U/L (38-126); ANION GAP 10 (5-19); ASPARTATE AMINO TRANSFERASE 18 U/L (14-36); BILIRUBIN,DIRECT 0.2 mg/dL (0.0-0.4); BILIRUBIN,TOTAL 0.2 mg/dL (0.2-1.3); BLOOD UREA NITROGEN 9 mg/dL (7-20); CARBON DIOXIDE 23 mmol/L (22-30); CHLORIDE 103 mmol/L (98-107); CREATININE RESULT 0.79 mg/dL (0.52-1.25); GLUCOSE 78 mg/dL (75-110); POTASSIUM 3.9 mmol/L (3.6-5.0); SODIUM 135.7 mmol/L (137-145); TOTAL PROTEIN 6.2 g/dL (6.3-8.2)
--- NOTE | 2017-06-22 19:45 | EKG REPORT ---
SEVERITY:- NORMAL ECG - SINUS RHYTHM : Confirmed by: Savage Chamberlain MD 22-Jun-2017 19:44:52
--- NOTE | 2017-06-22 20:10 | RADIOLOGY REPORT (SQ) ---
EXAM DESCRIPTION: CHEST SINGLE VIEW COMPLETED DATE/TIME: 06/22/2017 7:59 pm REASON FOR STUDY: chest pain, sob COMPARISON: None. EXAM PARAMETERS: NUMBER OF VIEWS: One view. TECHNIQUE: Single frontal radiographic view of the chest acquired. RADIATION DOSE: NA LIMITATIONS: None. FINDINGS: LUNGS AND PLEURA: No opacities, masses or pneumothorax. No pleural effusion. MEDIASTINUM AND HILAR STRUCTURES: No masses. Contour normal. HEART AND VASCULAR STRUCTURES: Heart normal in size. Normal vasculature. BONES: No acute findings. HARDWARE: None in the chest. OTHER: No other significant finding. IMPRESSION: NO ACUTE RADIOGRAPHIC FINDING IN THE CHEST. TECHNICAL DOCUMENTATION: JOB ID: [id number] [employer]- All Rights Reserved
[2017-06-22] MEDS ORDERED: FAMOTIDINE 20 MG TABLET PO ONE (21:38)
--- NOTE | 2017-06-22 21:41 | ER Document Report ---
ED General - General Chief Complaint: Breathing Difficulty Stated Complaint: DIFFICULTY BREATHING Time Seen by Provider: 06/22/17 17:31 Notes: Patient is a 26-year-old female currently 32 weeks who presents with 1 week of chest pressure and a feeling of shortness of breath when she lies flat. She reports the symptoms are only present when she is lying in bed. She denies any symptoms when standing, exerting herself or performing any other activity. Nothing seems to improve her symptoms other than changing position from a lying position. She denies a history of similar symptoms during this or prior to this . She does note that she has a history of gastroesophageal reflux. She has not seen her primary doctor or [facility] regarding today's concerns. She denies any pleuritic pain, hemoptysis, exertional dyspnea, or unilateral leg swelling. She does not have any history of DVT or pulmonary embolus. Denies any cardiac history. TRAVEL OUTSIDE OF THE [place] IN LAST 30 DAYS: No - Related Data Allergies/Adverse Reactions: shrimp Allergy (Verified 06/22/17 16:48) Past Medical History - General Information source: Patient - Social History Smoking Status: Never Smoker Chew tobacco use (# tins/day): No Frequency of alcohol use: None Drug Abuse: None Lives with: Spouse/Significant other Family History: Reviewed & Not Pertinent Patient has suicidal ideation: No Patient has homicidal ideation: No Renal/ Medical History: Denies: Hx Peritoneal Dialysis Review of Systems - Review of Systems Notes: Constitutional: Negative for fever. HENT: Negative for sore throat. Eyes: Negative for visual changes. Cardiovascular: Positive for intermittent chest pressure Respiratory: Negative for shortness of breath. Gastrointestinal: Negative for abdominal pain, vomiting or diarrhea. Genitourinary: Negative for dysuria. Musculoskeletal: Negative for back pain. Skin: Negative for rash. Neurological: Negative for headaches, weakness or numbness. 10 point ROS negative except as marked above and in HPI. Physical Exam - Vital signs Vitals: Temp Pulse Resp BP Pulse Ox 98.4 F 92 16 118/53 L 98 06/22/17 16:57 06/22/17 16:57 06/22/17 16:57 06/22/17 16:57 06/22/17 16:57 Interpretation: Normal Notes: PHYSICAL EXAMINATION: GENERAL: Well-appearing, well-nourished and in no acute distress. HEAD: Atraumatic, normocephalic. EYES: Pupils equal round and reactive to light, extraocular movements intact, sclera anicteric, conjunctiva are normal. ENT: nares patent, oropharynx clear without exudates. Moist mucous membranes. NECK: Normal range of motion, supple without lymphadenopathy LUNGS: Breath sounds clear to auscultation bilaterally and equal. No wheezes rales or rhonchi. HEART: Regular rate and rhythm without murmurs ABDOMEN: Soft, gravid uterus, nontender, normoactive bowel sounds. No guarding , no rebound. No masses appreciated. EXTREMITIES: Normal range of motion, no pitting or edema. No cyanosis. NEUROLOGICAL: No focal neurological deficits. Moves all extremities spontaneously and on command. PSYCH: Normal mood, normal affect. SKIN: Warm, Dry, normal turgor, no rashes or lesions noted. Course - Re-evaluation Re-evalutation: 06/22/17 21:38 Patient presents with 1 week of a feeling of chest heaviness when she lies flat. I suspect that this is likely esophageal spasm or reflux in the setting of a 33 weeks . Patient states that the symptoms do completely resolve when she sits up. She denies any exertional dyspnea, pleuritic chest pain, has no unilateral leg swelling, and her clinical history does not at all support this diagnosis. She is not tachycardic, tachypneic, or hypoxemic. Moreover her duration of symptoms seems unlikely for a pulmonary embolus as I would have an expectation of her getting progressively worse over that period of time and she states that her symptoms of been unchanged. Moreover, the clinical history of the symptoms only be present when she lies flat likewise does not make sense for an acute pulmonary embolus. Her lungs are clear and her chest x-ray is likewise clear I do not suspect that this is orthopnea in the setting of congestive failure with pulmonary edema. EKG unremarkable. His troponin is normal. Chest x-ray does not show any evidence of a pneumothorax. I did discuss the low likelihood of a PE with the patient but did discuss the possibility given that she is in her third trimester . After the risks and benefits conversation she is agreed to avoid this test at this time. I have emphasized with her the importance of close outpatient follow-up and returning to the emergency room immediately should she have any new or worsening symptoms. - Vital Signs Vital signs: Temp Pulse Resp BP Pulse Ox 98.1 F 77 16 121/74 99 06/22/17 21:35 06/22/17 21:35 06/22/17 21:35 06/22/17 21:35 06/22/17 21:35 - Laboratory Result Diagrams: 06/22/17 18:19 06/22/17 18:19 Laboratory results interpreted by me: 06/22/17 06/22/17 18:19 18:19 RDW 16.4 H Lymphocytes % 12.5 L Sodium 135.7 L Total Protein 6.2 L Albumin 3.4 L - Diagnostic Test Radiology reviewed: Image reviewed, Reports reviewed Radiology results interpreted by me: 06/23/17 04:08 Chest x-ray: No acute infiltrate or pneumothorax - EKG Interpretation by Me Additional EKG results interpreted by me: 06/23/17 04:09 Normal sinus rhythm. Rate 76. No ST elevations or depressions. QTC is 423. Discharge - Discharge Clinical Impression: Chest discomfort Gastroesophageal reflux Qualifiers: Esophagitis presence: esophagitis presence not specified Qualified Code(s): K21.9 - Gastro-esophageal reflux disease without esophagitis Condition: Good Disposition: HOME, SELF-CARE Additional Instructions: Your symptoms appear to be most consistent with esophageal irritation. Please begin taking famotidine 40 mg in the morning and 40 mg at night. This medicine can be purchased directly [id number]. You may also take Tums to assist with your pain. Please return to emergency department immediately if you have worsening of your pain, shortness of breath, vomiting, become unable to exert yourself due to pain or difficulty breathing, you pass out, or have any pain that radiates into your arms, jaw, or back. Please also return if you have any additional symptoms that are concerning to you.
[2017-06-22 21:52] VITALS: BP 121/74
== END 2017-06-22 21:45 | disposition home or self-care (01) ==
LOC: ER 16:43
DX: O26.893 Other specified pregnancy related conditions, third trimester (principal); R07.89 Other chest pain; R06.02 Shortness of breath; O99.613 Diseases of the digestive system complicating pregnancy, third trimester; K21.9 Gastro-esophageal reflux disease without esophagitis; Z3A.32 32 weeks gestation of pregnancy; Z91.013 Allergy to seafood
CPT/HCPCS: 36415; 71010; 80053; 84484; 85025; 93005; 93010; 99285

== ENCOUNTER 2017-06-27 19:15 | Outpatient (CLI) | payer OTHER ==
[2017-06-27 20:22] LABS: URINE BARBITURATES SCREEN NEGATIVE; URINE METHADONE SCREEN NEGATIVE; URINE OPIATES LOW NEGATIVE; URINE PHENCYCLIDINE SCREEN NEGATIVE
[2017-06-27 20:24] LABS: APPEARANCE,URINE CLOUDY; BILIRUBIN,URINE NEGATIVE (NEGATIVE); GLUCOSE, URINE NEGATIVE (NEGATIVE); KETONES,URINE NEGATIVE (NEGATIVE); LEUKOCYTE ESTERASE,URINE TRACE (NEGATIVE); NITRITE,URINE NEGATIVE (NEGATIVE); PROTEIN,URINE NEGATIVE (NEGATIVE); URINE SPECIFIC GRAVITY 1.028
--- NOTE | 2017-06-27 20:57 | Non Stress Test Report ---
Non Stress Test Datetime Report Generated by CPN: 06/27/2017 20:56 DEMOGRAPHIC EGA NST: 33.6 INDICATION Indication for Study: Decreased Movement VITAL SIGNS Temperature - NST: 98.6 Pulse - NST: 73 RESP - NST: 16 NBPSYS NST: 110 NBPDIA NST: 50 MONITORING Monitor Explained: Monitor Explained; Test Explained; Patient Verbalized Understanding Time on Monitor: 06/27/2017 19:31 Time off Monitor: 06/27/2017 20:38 NST Duration: 67 NST INTERVENTIONS NST Interventions: PO Hydration Physician Notified NST: B. Spear, MD BABY A: [id number] BABY A Movement : Present Contraction Frequency : 0 FHR Baseline : 150 Accelerations : 15X15 Decelerations : None Variability : Moderate 6-25bpm NST Review: Meets Criteria for Reactive NST NST Review and Verified By : Ghulam Boo RN NST Results: Reactive NST REPORT Report Trigger: Send Report
== END 2017-06-27 20:40 | disposition home or self-care (01) ==
LOC: LC 19:15
PROVIDERS: ATTEND Obstetrics & Gynecology
PROC: 4A1HXCZ Monitoring of Products of Conception, Cardiac Rate, External Approach (ICD-10-PCS; principal; 2017-06-27)
DX: O36.8130 Decreased fetal movements, third trimester, not applicable or unspecified (principal); Z3A.33 33 weeks gestation of pregnancy
CPT/HCPCS: 59025; 80307; 81001

== ENCOUNTER 2017-07-29 16:13 | Outpatient (CLI) | payer OTHER ==
[2017-07-29 16:41] LABS: APPEARANCE,URINE SLIGHTLY-CLOUDY; BILIRUBIN,URINE NEGATIVE (NEGATIVE); COLOR,URINE YELLOW; GLUCOSE, URINE NEGATIVE (NEGATIVE); KETONES,URINE NEGATIVE (NEGATIVE); LEUKOCYTE ESTERASE,URINE NEGATIVE (NEGATIVE); NITRITE,URINE NEGATIVE (NEGATIVE); PROTEIN,URINE NEGATIVE (NEGATIVE); URINE SPECIFIC GRAVITY 1.018
[2017-07-29 17:02] LABS: URINE AMPHETAMINES SCREEN NEGATIVE; URINE BARBITURATES SCREEN NEGATIVE; URINE BENZODIAZEPINES SCREEN NEGATIVE; URINE COCAINE SCREEN NEGATIVE; URINE MARIJUANA (THC) SCREEN NEGATIVE; URINE METHADONE SCREEN NEGATIVE; URINE PHENCYCLIDINE SCREEN NEGATIVE
[2017-07-29 17:11] LABS: AMNISURE (ROM) NEGATIVE (NEGATIVE)
== END 2017-07-29 17:26 | disposition home or self-care (01) ==
LOC: LC 16:13
PROVIDERS: ATTEND Student in an Organized Health Care Education/Training Program
PROC: 4A1HXCZ Monitoring of Products of Conception, Cardiac Rate, External Approach (ICD-10-PCS; principal; 2017-07-29)
DX: O47.1 False labor at or after 37 completed weeks of gestation (principal); Z3A.38 38 weeks gestation of pregnancy
CPT/HCPCS: 59025; 80307; 81005; 84112

== ENCOUNTER 2017-08-03 15:57 | Outpatient (CLI) | payer OTHER ==
[2017-08-03 16:35] LABS: APPEARANCE,URINE SLIGHTLY-CLOUDY; BILIRUBIN,URINE NEGATIVE (NEGATIVE); COLOR,URINE YELLOW; GLUCOSE, URINE NEGATIVE (NEGATIVE); KETONES,URINE TRACE mg/dL (NEGATIVE); LEUKOCYTE ESTERASE,URINE MODERATE (NEGATIVE); NITRITE,URINE NEGATIVE (NEGATIVE); PROTEIN,URINE NEGATIVE (NEGATIVE); URINE SPECIFIC GRAVITY 1.017
[2017-08-03 16:45] LABS: AMNISURE (ROM) NEGATIVE (NEGATIVE)
[2017-08-03 16:51] LABS: URINE AMPHETAMINES SCREEN NEGATIVE; URINE BARBITURATES SCREEN NEGATIVE; URINE BENZODIAZEPINES SCREEN NEGATIVE; URINE COCAINE SCREEN NEGATIVE; URINE MARIJUANA (THC) SCREEN NEGATIVE; URINE METHADONE SCREEN NEGATIVE; URINE PHENCYCLIDINE SCREEN NEGATIVE
--- NOTE | 2017-08-03 16:52 | Non Stress Test Report ---
Non Stress Test Datetime Report Generated by CPN: 08/03/2017 16:52 DEMOGRAPHIC EGA NST: 39.1 EGA NST: 38.3 INDICATION Indication for Study: Ordered by Provider Indication for Study: Ordered by Provider Indication for Study (NST) Other: LC Indication for Study (NST) Other: LC VITAL SIGNS Temperature - NST: 98.3 MONITORING Monitor Explained: Monitor Explained; Test Explained; Patient Verbalized Understanding Monitor Explained: Monitor Explained; Test Explained; Patient Verbalized Understanding Time on Monitor: 08/03/2017 16:10 Time on Monitor: 07/29/2017 16:29 Time off Monitor: 07/29/2017 17:02 NST Duration: 33 NST INTERVENTIONS NST Interventions: PO Hydration; Reposition Patient NST Interventions: PO Hydration Physician Notified NST: Emmel, CNM Physician Notified NST: CMandeep Paulino, CNM BABY A: [id number] BABY A Movement : Present Movement : Present Contraction Frequency : irregular Contraction Frequency : 4.5-5 FHR Baseline : 140 FHR Baseline : 125 Accelerations : 15X15 Accelerations : 15X15 Decelerations : None Decelerations : None Variability : Moderate 6-25bpm Variability : Moderate 6-25bpm NST Review: Meets Criteria for Reactive NST NST Review: Meets Criteria for Reactive NST NST Review and Verified By : SIDNEY DEL CID RN NST Results: Reactive NST Results: Reactive NST REPORT Report Trigger: Send Report
== END 2017-08-03 16:52 | disposition home or self-care (01) ==
LOC: LC 15:57
PROVIDERS: ATTEND Obstetrics & Gynecology
PROC: 4A1HXCZ Monitoring of Products of Conception, Cardiac Rate, External Approach (ICD-10-PCS; principal; 2017-08-03)
DX: O47.1 False labor at or after 37 completed weeks of gestation (principal); Z3A.39 39 weeks gestation of pregnancy
CPT/HCPCS: 59025; 80307; 81005; 84112

== ENCOUNTER 2017-08-11 02:15 | Inpatient (IN) | payer OTHER ==
[2017-08-11] MEDS ORDERED: RINGERS SOLUTION,LACTATED 1,000 ML IV ONE (02:39)
[2017-08-11 03:13] LABS: APPEARANCE,URINE SLIGHTLY-CLOUDY; BILIRUBIN,URINE NEGATIVE (NEGATIVE); COLOR,URINE YELLOW; GLUCOSE, URINE NEGATIVE (NEGATIVE); KETONES,URINE NEGATIVE (NEGATIVE); LEUKOCYTE ESTERASE,URINE MODERATE (NEGATIVE); NITRITE,URINE NEGATIVE (NEGATIVE); PROTEIN,URINE NEGATIVE (NEGATIVE); URINE SPECIFIC GRAVITY 1.014; UROBILINOGEN,URINE NEGATIVE mg/dL (<2.0)
[2017-08-11 03:18] LABS: HEMATOCRIT 37.2 % (36.0-47.0); HEMOGLOBIN 12.4 g/dL (12.0-15.5); MEAN CORPUSCULAR HEMOGLOBIN 29.2 pg (27.0-33.4); MEAN CORPUSCULAR HGB CONC 33.5 g/dL (32.0-36.0); MEAN CORPUSCULAR VOLUME 87 fl (80-97); PLATELET COUNT 137 10^3/uL (150-450); RED BLOOD COUNT 4.26 10^6/uL (3.72-5.28); RED CELL DISTRIBUTION WIDTH 16.4 % (11.5-14.0); WHITE BLOOD COUNT 10.4 10^3/uL (4.0-10.5)
[2017-08-11] MEDS ORDERED: MISOPROSTOL 0.2 MG TABLET ONE (03:26)
[2017-08-11] MEDS ORDERED: LIDOCAINE 1% INJ-PF (10 MG/ML) 30 ML SDV ONE (03:26)
[2017-08-11] MEDS ORDERED: OXYTOCIN/NORMAL SALINE 20 UNIT/1,000 ML RTUINJ ONE (03:27)
[2017-08-11 03:36] LABS: URINE AMPHETAMINES SCREEN NEGATIVE; URINE BARBITURATES SCREEN NEGATIVE; URINE BENZODIAZEPINES SCREEN NEGATIVE; URINE COCAINE SCREEN NEGATIVE; URINE MARIJUANA (THC) SCREEN NEGATIVE; URINE METHADONE SCREEN NEGATIVE; URINE PHENCYCLIDINE SCREEN NEGATIVE
[2017-08-11 03:43] LABS: ABSOLUTE LYMPHOCYTES# (MANUAL) 2.3 10^3/uL (0.5-4.7); ABSOLUTE MONOCYTES # (MANUAL) 0.5 10^3/uL (0.1-1.4); ABSOLUTE NEUTROPHILS# (MANUAL) 7.5 10^3/uL (1.7-8.2); BAND NEUTROPHILS % (MANUAL) 4 % (3-5); BASOPHILS % (MANUAL) 0 % (0-2); EOSINOPHILS % (MANUAL) 1 % (0-6); LYMPHOCYTES % (MANUAL) 18 % (13-45); MONOCYTES % (MANUAL) 5 % (3-13); SEGMENTED NEUTROPHILS % (MAN) 68 % (42-78); TOTAL CELLS COUNTED 100
[2017-08-11 03:46] LABS: ANISOCYTOSIS SLIGHT
[2017-08-11 03:47] LABS: PLATELET COMMENT DECREASED; PLATELET LARGE PRESENT; POLYCHROMASIA SLIGHT
[2017-08-11] MEDS ORDERED: NALBUPHINE HCL INJ 10 MG/1 ML AMPULE ONE (05:01)
[2017-08-11] MEDS ORDERED: PROMETHAZINE HCL INJ 25 MG/1 ML VIAL ONE (05:01)
[2017-08-11] MEDS: RINGERS SOLUTION,LACTATED 1,000 ML IV PRN ×2 (05:11→07:02)
[2017-08-11] MEDS ORDERED: OXYTOCIN/NORMAL SALINE 20 UNIT/1,000 ML RTUINJ IV PRN (09:14)
[2017-08-11] MEDS ORDERED: BENZOCAINE/MENTHOL AEROSOL SPRAY 56 ML TOP PRN (09:14)
[2017-08-11] MEDS ORDERED: HYDROCODONE/ACETAMINOPHEN 5-325 MG TABLET PO PRN (09:14)
[2017-08-11] MEDS ORDERED: DIPH/PERTUSS(ACELL)/TETANUS VAC/PF 0.5 ML SYR (>=10YO) IM PRN (09:14)
[2017-08-11] MEDS ORDERED: MISOPROSTOL 0.2 MG TABLET PR PRN (09:14)
[2017-08-11] MEDS ORDERED: MEASLES,MUMPS&RUBELLA VACC/PF 0.5 ML VIAL SUBCUT PRN (09:14)
[2017-08-11] MEDS ORDERED: DIBUCAINE 1% OINTMENT 28 GM TP PRN (09:14)
[2017-08-11] MEDS ORDERED: ZOLPIDEM TARTRATE 5 MG TABLET PO PRN (09:14)
[2017-08-11] MEDS ORDERED: HYDROCODONE/ACETAMINOPHEN 5-325 MG TABLET ONE (09:23)
--- NOTE | 2017-08-11 10:15 | Delivery Summary ---
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 Baby placed on mothers abd, cord clamped and cut after 2 minutes. Spont delivery of grossly normal intact placenta, 3 VC, EBL = 300cc, uterine atony, cytotec 1000mcg via rectum, massage and IV Pitocin. Baby and mom remain in recovery in stable condition, superficial lacerations that did not need repair. Family at . Baby moving all extremeties well (Annotations: Data stored by CPN on behalf of user) LABOR SUMMARY EDC: 08/09/2017 00:00 No. Babies in Womb: 1 Attempted: No Labor Anesthesia: IV Sedation LABOR INFORMATION Reason for Induction: Not Applicable Onset of Labor: 08/11/2017 02:29 Complete Dilatation: 08/11/2017 08:21 Oxytocin: N/A Group B Beta Strep: Negative Antibiotics # of Doses: 0 Steroids Given: None Reason Steroids Not Administered: Not Applicable MEMBRANES Membranes Rupture Method: Artificial Rupture of Membranes: 08/11/2017 06:56 Length of Rupture (hr): 1.88 Amniotic Fluid Color: Clear Amniotic Fluid Amount: Small Amniotic Fluid Odor: Normal STAGES OF LABOR Stage 1 hr: 5 Stage 1 min: 52 Stage 2 hr: 0 Stage 2 min: 28 Stage 3 hr: 0 Stage 3 min: 10 Total Time in Labor hr: 6 Total Time in Labor min: 30 VAGINAL DELIVERY Episiotomy: None Laceration #1: None Laceration Extension #1: N/A Other Laceration: supraficial lacerations not repaired Laceration Repair: Not Applicable Sponge Count Correct: N/A Sharps Count Correct: N/A CSECTION DELIVERY Primary Indication: N/A Secondary Indication: N/A CSection Incidence: N/A Labor: N/A Elective: N/A CSection Incision: N/A BABY A INFORMATION Delivery Date/Time: 08/11/2017 08:49 Method of Delivery: Vaginal Born in Route : No : N/A Forceps: N/A Vacuum Extraction: N/A Shoulder Dystocia : Yes SHOULDER DYSTOCIA BABY A Delivery of Head: 08/11/2017 08:49 Time Head to Delivery : 0.0 1st Intervention to Resolve: Gentle Attempt at Traction, Assisted by Maternal Expulsive Efforts 2nd Intervention to Resolve: McRobert's Maneuver 3rd Intervention to Resolve: Suprapubic Pressure Verify NO Fundal Pressure: No Fundal Pressure Applied Arm Under Symphisis at Del: Right PRESENTATION/POSITION BABY A Presentation: Cephalic Cephalic Presentation: Vertex Vertex Position: Right Occipital Anterior Breech Presentation: N/A PLACENTA INFORMATION BABY A Placenta Delivery Time : 08/11/2017 08:59 Placenta Method of Delivery: Spontaneous Placenta Status: Delivered SCORES BABY A Heart Rate 1 min: >100 bpm Resp Effort 1 min: Good Cry Reflex Irritability 1 min: Cough or Sneeze or Pulls Away Muscle Tone 1 min: Active Motion Color 1 min: Blue/Pale SCORE 1 MIN: 8 Heart Rate 5 min: >100 bpm Resp Effort 5 min: Good Cry Reflex Irritability 5 min: Cough or Sneeze or Pulls Away Muscle Tone 5 min: Active Motion Color 5 min: Body [place], Extremities Blue Resuscitation Effort 5 min: N/A SCORE 5 MIN: 9 Resuscitation Effort 10 min: N/A INFANT INFORMATION BABY A Gestational Age at Delivery: 40.2 Gestational Status: Full Term- 39- 40.6 Weeks Infant Outcome : Liveborn Condition : Stable Sex: Male IDENTIFICATION BABY A Infant Verification Date/Time: 08/11/2017 09:06 ID Band Number: [id number] Mother's Name Verified: Yes RN Verifying Infant: Nani Zepeda RN K Joshua RNC CORD INFORMATION BABY A No. Cord Vessels: 3 Nuchal Cord : N/A Cord Blood Taken: Yes-For Eval (Mom's Blood Type - or O+) Suction: Mouth ASSESSMENT BABY A Infant Complications: Shoulder Dystocia Physical Findings at Delivery: Within Normal Limits Respirations: Appears Normal Skin to Skin: Yes Skin to Skin Time (min): 30 Restaurant Crew/ALS Called : No Care By: Lalito Zepeda RN Transferred To: Remains with Mother BABY B INFORMATION : N/A
--- NOTE | 2017-08-11 11:26 | Admission Physical ---
Datetime Report Generated by CPN: 08/11/2017 11:25 CURRENT ADMISSION Chief Complaint: Uterine Contractions Indication for Induction: Not Applicable Indication for Induction: Active Labor Admit Plan: Admit to Unit ALLERGIES Medication Allergies: No Medication Allergies: shrimp (08/11/2017) Medication Allergies: shrimp (07/29/2017) Medication Allergies: shrimp (06/27/2017) Medication Allergies: shrimp (06/22/2017) Medication Allergies: shrimp (01/30/2017) Latex: No Latex Allergies Food Allergies: Yes- Shrimp Environmental Allergies: none OBSTETRICAL HISTORY EDC: 08/09/2017 00:00 : 4 Para: 1 Term: 1 : 0 SAB: 2 IAB: 0 Ectopic: 0 Livin Cesareans: 0 VBACs: 0 Multiple Births: 0 Gestational Diabetes: No Rh Sensitization: No Incompetent Cervix: No CHLOE: No Infertility: No ART Treatment: No Uterine Anomaly: No IUGR: No Hx Previous C/S: No Macrosomia: No Hx Loss/Stillborn: No PIH: No Hx : No Placenta Previa/Abruption: No Depression/PP Depression: Yes PTL/PROM: No Post Hemorrhage: No Current Procedures: Ultrasound Obstetrical History Comments: pt. reports that she is not sure how many pregnancies in total she had, (from [facility] records). SAB 9 weeks SAB 16 weeks 2010 39.6 weeks male 2014 SEE RECORDS Alcohol: No Marijuana : No Cocaine: No Other Illicit Drugs: No Cigarettes: Never Smoker. 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 INFECTIOUS HISTORY Gonorrhea: No Genital Herpes: Yes Chlamydia: No Tuberculosis: No Syphilis: No Hepatitis: No HIV/AIDS Exposure: No Rash or Viral Illness: No HPV: No Infectious History Comments: Genital Herpes 2016-pt doesn't remember when last outbreak was. PHYSICAL EXAM General: Normal HEENT: Normal Neurologic: Normal Thyroid: Normal Heart: Normal Lungs: Normal Breast: Deferred Back: Normal Abdomen: Normal Genitourinary Exam: Normal Extremities: Normal DTRs: Normal Pelvic Type: Adequate Vital Signs: Reviewed VAGINAL EXAM Dilatation: 5 Effacement: 100 MEMBRANES Pooling: Negative Membranes: Intact FETUS A EGA: 40.2 Monitoring: External US Decelerations: None FHR Category: Category I Presentation: Vertex Admit Comment: Admit for delivery PLANS FOR LABOR AND DELIVERY Labor and Delivery: None Pain Management: Natural Feeding Preference: Breast Benefit of Breast Feed Discussed: Yes Circumcision: Yes INFORMED CONSENT Signature: with User ID: [email or web address]
[2017-08-11] MEDS: IBUPROFEN 800 MG TABLET PO SCH ×2 (13:43→21:09)
[2017-08-11] MEDS: FERROUS SULFATE 325 MG TABLET PO SCH ×2 (14:00→17:55)
[2017-08-11] MEDS: PRENATAL VITAMIN W DHA CAPSULE PO SCH (14:00)
[2017-08-11] MEDS: SENNOSIDES/DOCUSATE 8.6-50 MG 1 EACH TABLET PO SCH (14:00)
[2017-08-11] MEDS: DOCUSATE SODIUM 100 MG CAPSULE PO SCH ×2 (14:00→17:55)
[2017-08-12] MEDS: IBUPROFEN 800 MG TABLET PO SCH ×2 (05:41→14:01)
[2017-08-12 07:32] LABS: HEMATOCRIT 32.6 % (36.0-47.0); HEMOGLOBIN 10.7 g/dL (12.0-15.5); MEAN CORPUSCULAR HEMOGLOBIN 28.7 pg (27.0-33.4); MEAN CORPUSCULAR HGB CONC 32.7 g/dL (32.0-36.0); MEAN CORPUSCULAR VOLUME 88 fl (80-97); PLATELET COUNT 119 10^3/uL (150-450); RED BLOOD COUNT 3.72 10^6/uL (3.72-5.28); RED CELL DISTRIBUTION WIDTH 16.2 % (11.5-14.0); WHITE BLOOD COUNT 11.8 10^3/uL (4.0-10.5)
[2017-08-12] MEDS: PRENATAL VITAMIN W DHA CAPSULE PO SCH (09:05)
[2017-08-12] MEDS: FERROUS SULFATE 325 MG TABLET PO SCH (09:05)
[2017-08-12] MEDS: DOCUSATE SODIUM 100 MG CAPSULE PO SCH (09:05)
[2017-08-12] MEDS: SENNOSIDES/DOCUSATE 8.6-50 MG 1 EACH TABLET PO SCH (09:05)
--- NOTE | 2017-08-12 11:44 | PDOC DISCHARGE SUMMARY ---
Final Diagnosis Discharge Date: 08/12/17 - Final Diagnosis (1) Normal vaginal delivery Is this a current diagnosis for this admission?: Yes Discharge Data - Discharge Medication Prescriptions: Ibuprofen [Motrin 800 mg Tablet] 800 mg PO Q8 #90 tablet Home Medications: Vit/Iron Fum/Folic AC [ Tablet] 1 tab PO DAILY 06/05/17 Valacyclovir HCl [Valtrex 500 mg Tablet] 2 tab PO PRN PRN 06/05/17 Ibuprofen [Motrin 800 mg Tablet] 800 mg PO Q8 #90 tablet 08/12/17 Intrapartum Procedure(s): Spontaneous Vaginal Delivery - Diagnosis Test Laboratory: Temp Pulse Resp BP Pulse Ox 98.2 F 82 16 126/70 H 99 08/12/17 08:36 08/12/17 08:36 08/12/17 08:36 08/12/17 08:36 08/12/17 08:36 08/11/17 08/11/17 08/12/17 02:23 02:51 07:07 RBC 4.26 3.72 Hgb 12.4 10.7 L Hct 37.2 32.6 L Urine Opiates Screen NEGATIVE - Discharge information/Instructions Discharge Activity: Balance Activity w/Rest, Pelvic Rest Discharge Diet: Regular Disposition: HOME, SELF-CARE Follow up with: [facility] in: 4, Weeks
[2017-08-12 15:20] VITALS: BP 118/60
== END 2017-08-12 15:46 | disposition home or self-care (01) | DRG 775 ==
LOC: LC 02:15 → LR 02:34 → 2S 11:13
PROVIDERS: ADMIT Obstetrics & Gynecology; ATTEND Obstetrics & Gynecology
PROC: 10E0XZZ Delivery of Products of Conception, External Approach (ICD-10-PCS; principal; 2017-08-11)
PROC: 4A1HXCZ Monitoring of Products of Conception, Cardiac Rate, External Approach (ICD-10-PCS; 2017-08-11)
DX: O66.0 Obstructed labor due to shoulder dystocia (principal); O62.2 Other uterine inertia; O70.0 First degree perineal laceration during delivery; Z91.013 Allergy to seafood; Z3A.40 40 weeks gestation of pregnancy; Z37.0 Single live birth
CPT/HCPCS: 36415; 80307; 81005; 85025; 85027; 86592; 86850; 86900; 86901; J2300; J2550; J2590; J3490

== ENCOUNTER 2017-08-27 10:56 | Emergency (ER) | payer OTHER ==
[2017-08-27] MEDS ORDERED: LIDOCAINE 1%/EPINEPHRINE INJ 20 ML VIAL INJ ONE (12:15)
--- NOTE | 2017-08-27 12:18 | ER Document Report ---
ED General - General Chief Complaint: Lip Injury Stated Complaint: LIP INJURY Time Seen by Provider: 08/27/17 11:44 Mode of Arrival: Ambulatory Information source: Patient TRAVEL OUTSIDE OF THE U.[place]. IN LAST 30 DAYS: No - HPI Notes: 27-year-old female presents today with complaints of a right upper lip laceration after her iPhone fell and hit her lip approximately 2 hours ago. Tetanus is up-to-date. Pain is 6 out of 10, throbbing. No [id number] medications have been tried. Patient is on blood thinners. Denies any loose teeth. Denies any other injury. Patient is breast-feeding her 2 week well- child. Denies fevers, chills, chest pain, shortness of breath, nausea, vomiting, diarrhea, abdominal pain, hematuria,blurred vision, double vision, loss of vision, speech changes, LH, dizziness, syncope, headaches, neck pain, weakness, bowel or bladder dysfunction, saddle anesthesia, numbness or tingling in bilateral upper or lower extremities equally, muscle paralysis, weakness in bilateral upper or lower extremities equally or rash - Related Data Allergies/Adverse Reactions: shrimp Allergy (Verified 08/27/17 10:58) Past Medical History - General Information source: Patient - Social History Smoking Status: Never Smoker Chew tobacco use (# tins/day): No Frequency of alcohol use: None Drug Abuse: None Family History: Reviewed & Not Pertinent Patient has suicidal ideation: No Patient has homicidal ideation: No Renal/ Medical History: Denies: Hx Peritoneal Dialysis Past Surgical History: Reports: Hx Gynecologic Surgery - D&C Review of Systems - Review of Systems Notes: REVIEW OF SYSTEMS: CONSTITUTIONAL : Denies fever, chills, or sweats. Denies recent illness. EENT: Denies eye, ear, throat, or mouth pain or symptoms. Denies nasal or sinus congestion or discharge. Denies throat, tongue, or mouth swelling or difficulty swallowing. CARDIOVASCULAR: Denies chest pain. Denies palpitations or racing or irregular heart beat. Denies ankle edema. RESPIRATORY: Denies cough, cold, or chest congestion. Denies shortness of breath, difficulty breathing, or wheezing. GASTROINTESTINAL: Denies abdominal pain or distention. Denies nausea, vomiting , or diarrhea. Denies blood in vomitus, stools, or per rectum. Denies black, tarry stools. Denies constipation. GENITOURINARY: Denies difficulty urinating, painful urination, burning, frequency, blood in urine, or discharge. FEMALE GENITOURINARY: Denies vaginal bleeding, heavy or abnormal periods, irregular periods. Denies vaginal discharge or odor. MUSCULOSKELETAL: Denies back or neck pain or stiffness. Denies joint pain or swelling. SKIN: right upper lip laceration Denies rash, lesions or sores. HEMATOLOGIC : Denies easy bruising or bleeding. LYMPHATIC: Denies swollen, enlarged glands. NEUROLOGICAL: Denies confusion or altered mental status. Denies passing out or loss of consciousness. Denies dizziness or lightheadedness. Denies headache. Denies weakness or paralysis or loss of use of either side. Denies problems with gait or speech. Denies sensory loss, numbness, or tingling. Denies seizures. PSYCHIATRIC: Denies anxiety or stress. Denies depression, suicidal ideation, or homicidal ideation. ALL OTHER SYSTEMS REVIEWED AND NEGATIVE. Physical Exam - Vital signs Vitals: Temp Pulse Resp BP Pulse Ox 99.6 F 68 14 108/60 98 08/27/17 11:13 08/27/17 11:13 08/27/17 11:13 08/27/17 11:13 08/27/17 11:13 Interpretation: Normal - Notes Notes: PHYSICAL EXAMINATION: GENERAL: Well-appearing, well-nourished and in no acute distress. HEAD: Atraumatic, normocephalic. EYES: Pupils equal round and reactive to light, extraocular movements intact, conjunctiva are normal. ENT: Nares patent, oropharynx clear without exudates. Moist mucous membranes. NECK: Normal range of motion, supple without lymphadenopathy LUNGS: Breath sounds clear to auscultation bilaterally and equal. No wheezes rales or rhonchi. HEART: Regular rate and rhythm without murmurs ABDOMEN: Soft, nontender, nondistended abdomen. No guarding, no rebound. No masses appreciated. Female : deferred Musculoskeletal: Normal range of motion, no pitting or edema. No cyanosis. NEUROLOGICAL: Cranial nerves grossly intact. Normal speech, normal gait. Normal sensory, motor exams PSYCH: Normal mood, normal affect. SKIN: Warm, Dry, normal turgor, no rashes or lesions noted. 0.5 cm right upper lip vertical laceration to the outer lip that does not extend beyond the vermilion border. No active bleeding. No loose teeth. No other area of injury. Dictation was performed using [employer] voice recognition software Course - Re-evaluation Re-evalutation: Rechecked the patient who is resting comfortably. On re-exam, patient is symptomatically improved. Discussed the diagnosis at great length. Advised patient that she has absorbable sutures and, they do not need to be removed. Take prophylactic Keflex to prevent infection. Follow-up with plastic surgeon, Dr. Noriega in the office within the next 1-2 days. Monitor for any signs and symptoms of infection such as redness, swelling, purulent drainage. Return to the ER if symptoms become worse. Discussed the need to return to the ER for any new or worsening sx. Patient understands to take the Rx as directed. All questions answered. Patient comfortable with the decision to go home. - Vital Signs Vital signs: Temp Pulse Resp BP Pulse Ox 98.7 F 56 L 16 104/48 L 98 08/27/17 14:04 08/27/17 14:04 08/27/17 14:04 08/27/17 14:04 08/27/17 14:04 Procedures - Laceration/Wound Repair Right Upper Face Time completed: 13:20 Wound length (cm): 0.5 - cm Wound's Depth, Shape: Superficial, Linear Laceration pre-procedure: Sterile PPE donned, Sterile drapes applied, Shur- Clens applied Anesthetic type: 1% Lidocaine w/epi Volume Anesthetic (mLs): 2 - mL Wound explored: Clean - High-pressure irrigation with 200 mL's of normal saline. No foreign body seen on exploration of wound., No foreign body removed Wound Repaired With: Sutures Suture Size/Type: 5:0, Vicryl Number of Sutures: 5 Layer Closure?: No Post-procedure wound care: Sterile dressing applied Notes: 08/27/17 15:16 Patient tolerated procedure without incident. Discussed with patient that these are absorbable sutures, they do not need to be taken out. Adult Head Front/Back picture: 1 - 0.5cm linear laceration to right outer upper lip, does not extend beyond the vermilion boarder. Discharge - Discharge Clinical Impression: Lip laceration Qualifiers: Encounter type: initial encounter Qualified Code(s): S01.511A - Laceration without foreign body of lip, initial encounter Condition: Good Disposition: HOME, SELF-CARE Instructions: Laceration Care ([facility]), Prophylactic Antibiotic ([facility]), Soap Cleansing ([facility]) Additional Instructions: Laceration Care Your laceration has been sutured to keep the skin edges aligned during healing. The time of suture removal depends on the nature and location of your cut. Please follow the care instructions the doctor has outlined for you and return for further care, according to the schedule you've been given. Keep the wound and dressing clean. Unless you were told otherwise, you may shower daily, blotting the wound dry with a clean, unused towel. At other times, If the dressing gets wet or blood soaked, remove it and blot the wound dry, then reapply a new dressing. Unless you were instructed otherwise, dressings should be changed at least daily. If any signs of infection occur (swelling, redness, increasing tenderness, red streaks, tender lumps in the armpit or groin above the laceration, or fever) , see the doctor immediately. You have an absorbable sutures, they will naturally dissolve. Take Keflex daily to prevent infection, salt water gargles. Follow-up with plastic surgeon Prescriptions: Cephalexin Monohydrate [Keflex 500 mg Capsule] 500 mg PO BID #10 capsule Referrals: VANNESA NORIEGA MD [ACTIVE STAFF] - Follow up tomorrow
[2017-08-27] MEDS ORDERED: LIDOCAINE 4%/TETRACAINE 0.5%/EPI 0.18% 5 ML TOPICAL SOLN TOP ONE (12:27)
[2017-08-27 14:09] VITALS: BP 104/48
== END 2017-08-27 14:06 | disposition home or self-care (01) ==
LOC: ER 10:56
PROC: 0CQ0XZZ Repair Upper Lip, External Approach (ICD-10-PCS; principal; 2017-08-27)
DX: O90.9 Complication of the puerperium, unspecified (principal); S01.511A Laceration without foreign body of lip, initial encounter; W20.8XXA Other cause of strike by thrown, projected or falling object, initial encounter
CPT/HCPCS: 12011; 99283; J3490 ×2

== ENCOUNTER → 2018-02-18 | Outpatient (CLI) | payer OTHER ==
--- NOTE | 2018-02-19 08:36 | RADIOLOGY REPORT (SQ) ---
EXAM DESCRIPTION: MRI LT LOWER JOINT WITHOUT; MRI RT LOWER JOINT WITHOUT COMPLETED DATE/TIME: 02/18/2018 6:48 pm; 02/18/2018 6:54 pm REASON FOR STUDY: M25.552 PAIN IN LEFT HIP M25.551 PAIN IN RIGHT HIP M25.552 PAIN IN LEFT HIP M25.5 51 PAIN IN RIGHT HIP COMPARISON: None. TECHNIQUE: Right and lefthip images acquired and stored on PACS. Multiplanar images to include fat s ensitive sequences as T1, fluid sensitive sequences as T2/STIR and gradient echo sequences. Large FOV fat and fluid sensitive sequences include pelvis and opposite hip. LIMITATIONS: None. FINDINGS: BONE CORTEX AND MARROW: No generalized marrow replacement. No occult fracture. No worriso me bone lesions. RIGHT HIP: FEMORAL HEAD: No occult fracture. No osteophytes or subchondral cysts. Normal sphericity of femoral h ead/neck junction. No acetabular dysplasia. No evidence femoroacetabular impingement. No significant effusion. ACETABULUM: No acetabular dysplasia. No subchondral cysts. LABRUM: No loss of cartilage or delamination. Labrum is intact. No paralabral cysts. TROCHANTER: Trace trochanteric bursal effusion. Minimal edema/fluid at the insertions of the gluteus medius and gluteus minimus. LEFT HIP: FEMORAL HEAD: No occult fracture. No osteophytes or subchondral cysts. Normal sphericity of femoral h ead/neck junction. No acetabular dysplasia. No evidence femoroacetabular impingement. No significant effusion. ACETABULUM: No acetabular dysplasia. No subchondral cysts. LABRUM: No loss of cartilage or delamination. Labrum is intact. No paralabral cysts. TROCHANTER: Trace trochanteric bursal effusion. Minimal edema/fluid at the insertions of the gluteus medius and gluteus minimus. PELVIS, LOWER LUMBAR SPINE, SACROILIAC JOINTS: PELVIS : No insufficiency/stress fractures. No significant degenerative changes. Sacroiliac joints normal. L SPINE: No significant osteophytes or degenerative changes of the visualized lumbar spine. MUSCLES AND SOFT TISSUES: Adductors and piriformis normal. Abductors and greater trochanteric bursa n ormal without edema or fluid. Iliopsoas bursa without fluid. Hamstring attachments without edema or t ear. PELVIC SOFT TISSUES: No masses or adenopathy. SCIATIC NERVE: Identified, without masses or abnormal signal. OTHER: No other significant finding. IMPRESSION: Very mild inflammation at the right and left greater trochanter along the trochanteric b ursa. Otherwise unremarkable study. TECHNICAL DOCUMENTATION: JOB ID: [id number] [email or web address]- All Rights Reserved Reading location - IP/workstation name: [email or web address]
== END ==
LOC: RAD 19:13
PROVIDERS: ATTEND Physician Assistant Medical
DX: M25.552 Pain in left hip (principal); M25.551 Pain in right hip

== ENCOUNTER 2018-03-06 12:02 | Emergency (ER) | payer MEDICAID, OTHER ==
[2018-03-06 12:51] LABS: ABSOLUTE BASOPHILS # (AUTO) 0.1 10^3/uL (0.0-0.2); ABSOLUTE EOSINOPHILS # (AUTO) 0.1 10^3/uL (0.0-0.6); ABSOLUTE LYMPHOCYTES (AUTO) 1.5 10^3/uL (0.5-4.7); ABSOLUTE MONOCYTES (AUTO) 0.4 10^3/uL (0.1-1.4); ABSOLUTE NEUT (AUTO) 2.6 10^3/uL (1.7-8.2); BASOPHILS % (AUTO) 1.2 % (0-2); EOSINOPHILS % (AUTO) 1.3 % (0-6); HEMATOCRIT 40.1 % (36.0-47.0); HEMOGLOBIN 12.9 g/dL (12.0-15.5); LYMPHOCYTES % (AUTO) 32.3 % (13-45); MEAN CORPUSCULAR HEMOGLOBIN 27.4 pg (27.0-33.4); MEAN CORPUSCULAR HGB CONC 32.2 g/dL (32.0-36.0); MEAN CORPUSCULAR VOLUME 85 fl (80-97); MONOCYTES % (AUTO) 8.4 % (3-13); PLATELET COUNT 184 10^3/uL (150-450); RED BLOOD COUNT 4.72 10^6/uL (3.72-5.28); SEGMENTED NEUTROPHILS % (AUTO) 56.8 % (42-78); TOTAL CELLS COUNTED % (AUTO) 100 %; WHITE BLOOD COUNT 4.5 10^3/uL (4.0-10.5)
[2018-03-06 13:02] LABS: APPEARANCE,URINE CLEAR; BILIRUBIN,URINE NEGATIVE (NEGATIVE); GLUCOSE, URINE NEGATIVE (NEGATIVE); KETONES,URINE TRACE mg/dL (NEGATIVE); LEUKOCYTE ESTERASE,URINE NEGATIVE (NEGATIVE); NITRITE,URINE NEGATIVE (NEGATIVE); PROTEIN,URINE >=500 mg/dL (NEGATIVE); UROBILINOGEN,URINE NEGATIVE mg/dL (<2.0)
[2018-03-06 13:03] LABS: COLOR,URINE RED
[2018-03-06 13:13] LABS: ALANINE AMINOTRANSFERASE 23 U/L (9-52); ALBUMIN 4.1 g/dL (3.5-5.0); ALKALINE PHOSPHATASE 58 U/L (38-126); ANION GAP 13 (5-19); ASPARTATE AMINO TRANSFERASE 22 U/L (14-36); BILIRUBIN,DIRECT 0.2 mg/dL (0.0-0.4); BILIRUBIN,TOTAL 0.7 mg/dL (0.2-1.3); BLOOD UREA NITROGEN 13 mg/dL (7-20); CALCIUM 9.5 mg/dL (8.4-10.2); CARBON DIOXIDE 24 mmol/L (22-30); CHLORIDE 106 mmol/L (98-107); GLUCOSE 111 mg/dL (75-110); LIPASE 61.9 U/L (23-300); SODIUM 143.2 mmol/L (137-145); TOTAL PROTEIN 7.4 g/dL (6.3-8.2)
--- NOTE | 2018-03-06 15:28 | RADIOLOGY REPORT (SQ) ---
EXAM DESCRIPTION: U/S OB TRANSVAGINAL W/O DOP COMPLETED DATE/TIME: 03/06/2018 2:20 pm REASON FOR STUDY: +preg with bleeding TECHNIQUE: Endovaginal static and realtime grayscale images acquired of the pelvis. Additional selec loreto spectral and color Doppler images recorded. All images stored on PACs. [id number] CLINICAL DATES: Last menses 02/02/2018 LIMITATIONS: Pelvic bowel gas, ovaries not visualized FINDINGS: UTERUS: No visualized intrauterine . Endometrial stripe is 6 mm in thickness. RIGHT ADNEXA: Not well seen due to pelvic bowel gas LEFT ADNEXA: Not well seen due to pelvic bowel gas FREE FLUID: None. OTHER: No other significant finding. IMPRESSION: NO VISUALIZED INTRA- OR EXTRAUTERINE . bHCG LEVEL TOO LOW TO EXPECT VISUALIZATION OF . ECTOPIC CANNOT BE EXCLUDED. FOLLOW-UP ULTRASOUND AND SERIAL BHCG LEVELS STRONGLY RECOMMENDED TO ACCURATELY ASSESS STATU S. TECHNICAL DOCUMENTATION: JOB ID: [id number] [employer]- All Rights Reserved COMPARISON: None. No previous this Reading location - IP/workstation name: [email or web address]
--- NOTE | 2018-03-06 16:03 | ER Document Report ---
ED General - General Chief Complaint: Vaginal Bleeding Stated Complaint: ABDOMINAL PAIN Time Seen by Provider: 03/06/18 12:33 TRAVEL OUTSIDE OF THE [place] IN LAST 30 DAYS: No - Related Data Allergies/Adverse Reactions: shrimp Allergy (Verified 08/27/17 10:58) Past Medical History - Social History Smoking Status: Never Smoker Chew tobacco use (# tins/day): No Frequency of alcohol use: None Drug Abuse: None Family History: Reviewed & Not Pertinent Patient has suicidal ideation: No Patient has homicidal ideation: No Renal/ Medical History: Denies: Hx Peritoneal Dialysis Past Surgical History: Reports: Hx Gynecologic Surgery - D&C Physical Exam - Vital signs Vitals: Temp Pulse Resp BP Pulse Ox 98.4 F 67 18 120/64 100 03/06/18 12:20 03/06/18 12:20 03/06/18 12:20 03/06/18 12:20 03/06/18 12:20 Course - Vital Signs Vital signs: Temp Pulse Resp BP Pulse Ox 98.4 F 67 18 120/64 100 03/06/18 12:20 03/06/18 12:20 03/06/18 12:20 03/06/18 12:20 03/06/18 12:20 - Laboratory Result Diagrams: 03/06/18 12:40 03/06/18 12:40 Laboratory results interpreted by me: 03/06/18 03/06/18 03/06/18 12:40 12:40 12:40 RDW 15.0 H Glucose 111 H Beta HCG, Quant 13.95 H Urine Protein >=500 H Urine Ketones TRACE H Urine Blood LARGE H Discharge - Discharge Clinical Impression: Miscarriage Instructions: Miscarriage Impending ([facility]) Additional Instructions: Evaluation today is consistent with more likely impending miscarriage. Would recommend following up with [facility]INE[facility] GEOLOGIST or return to the ER in approximately 1 week for repeat beta-hCG testing. Would recommend taking Tylenol Motrin for pain control. You may use Zofran or Phenergan for any nausea that she may have. Please return to ER immediately should develop a fever increased bleeding lightheaded or dizziness. Prescriptions: Ondansetron [Zofran Odt] 4 mg PO Q6 PRN #30 tab.rapdis PRN Reason: For Nausea/Vomiting Promethazine HCl [Phenergan 25 mg Tablet] 25 mg PO Q6 #30 tablet Forms: Follow-Up Outpatient Testing Referrals: JUAN COFFEY PA [Primary Care Provider] - Follow up as needed
[2018-03-06 16:08] VITALS: BP 120/74
--- NOTE | 2018-03-06 20:34 | ER Document Report ---
ED General - General Chief Complaint: Vaginal Bleeding Stated Complaint: ABDOMINAL PAIN Time Seen by Provider: 03/06/18 12:33 TRAVEL OUTSIDE OF THE [place] IN LAST 30 DAYS: No - HPI Patient complains to provider of: Vaginal bleeding Notes: Patient coming in states approximately 1 week ago took a home test that was positive coming today because of vaginal bleeding. Patient is approximately a G6 with P2. Patient on past medical history is positive herpes. Denies any fever chills nausea vomiting diarrhea - Related Data Allergies/Adverse Reactions: shrimp Allergy (Verified 08/27/17 10:58) Past Medical History - Social History Smoking Status: Never Smoker Chew tobacco use (# tins/day): No Frequency of alcohol use: None Drug Abuse: None Family History: Reviewed & Not Pertinent Patient has suicidal ideation: No Patient has homicidal ideation: No Renal/ Medical History: Denies: Hx Peritoneal Dialysis Past Surgical History: Reports: Hx Gynecologic Surgery - D&C Review of Systems - Review of Systems Constitutional: No symptoms reported EENT: No symptoms reported Cardiovascular: No symptoms reported Respiratory: No symptoms reported Gastrointestinal: No symptoms reported Genitourinary: No symptoms reported Female Genitourinary: Vaginal bleeding Musculoskeletal: No symptoms reported Skin: No symptoms reported Hematologic/Lymphatic: No symptoms reported Neurological/Psychological: No symptoms reported -: Yes All other systems reviewed and negative Physical Exam - Vital signs Vitals: Temp Pulse Resp BP Pulse Ox 98.4 F 67 18 120/64 100 03/06/18 12:20 03/06/18 12:20 03/06/18 12:20 03/06/18 12:20 03/06/18 12:20 Interpretation: Normal - General General appearance: Appears well, Alert - HEENT Head: Normocephalic, Atraumatic Eyes: Normal Pupils: PERRL - Respiratory Respiratory status: No respiratory distress Chest status: Nontender Breath sounds: Normal Chest palpation: Normal - Cardiovascular Rhythm: Regular Heart sounds: Normal auscultation Murmur: No - Abdominal Inspection: Normal Distension: No distension Bowel sounds: Normal Tenderness: Nontender Organomegaly: No organomegaly - Back Back: Normal, Nontender - Extremities General upper extremity: Normal inspection, Nontender, Normal color, Normal ROM , Normal temperature General lower extremity: Normal inspection, Nontender, Normal color, Normal ROM , Normal temperature, Normal weight bearing. No: Jj's sign - Neurological Neuro grossly intact: Yes Cognition: Normal Orientation: AAOx4 Donya Coma Scale Eye Opening: Spontaneous Donya Coma Scale Verbal: Oriented [place] Coma Scale Motor: Obeys Commands [place] Coma Scale Total: 15 Speech: Normal Motor strength normal: LUE, RUE, LLE, RLE Sensory: Normal - Psychological Associated symptoms: Normal affect, Normal mood - Skin Skin Temperature: Warm Skin Moisture: Dry Skin Color: Normal Course - Re-evaluation Re-evalutation: 03/06/18 20:34 Beta-hCG only returned 14 which were the patient having a test partially 1 or week ago is not consistent with a viable . Ultrasound does not show any retained products. Recommend patient return for repeat beta-hCG testing in approximately 1 week more likely patient underwent a miscarriage patient states understanding was discharged home. - Vital Signs Vital signs: Temp Pulse Resp BP Pulse Ox 98.2 F 85 16 120/74 100 03/06/18 16:06 03/06/18 16:06 03/06/18 16:06 03/06/18 16:06 03/06/18 16:06 - Laboratory Result Diagrams: 03/06/18 12:40 03/06/18 12:40 Laboratory results interpreted by me: 03/06/18 03/06/18 03/06/18 12:40 12:40 12:40 RDW 15.0 H Glucose 111 H Beta HCG, Quant 13.95 H Urine Protein >=500 H Urine Ketones TRACE H Urine Blood LARGE H Discharge - Discharge Clinical Impression: Miscarriage Instructions: Miscarriage Impending ([facility]) Additional Instructions: Evaluation today is consistent with more likely impending miscarriage. Would recommend following up with [facility] or return to the ER in approximately 1 week for repeat beta-hCG testing. Would recommend taking Tylenol Motrin for pain control. You may use Zofran or Phenergan for any nausea that she may have. Please return to ER immediately should develop a fever increased bleeding lightheaded or dizziness. Prescriptions: Ondansetron [Zofran Odt] 4 mg PO Q6 PRN #30 tab.rapdis PRN Reason: For Nausea/Vomiting Promethazine HCl [Phenergan 25 mg Tablet] 25 mg PO Q6 #30 tablet Forms: Follow-Up Outpatient Testing Referrals: JUAN COFFEY PA [Primary Care Provider] - Follow up as needed
== END 2018-03-06 16:05 | disposition home or self-care (01) ==
LOC: ER 12:02
DX: O03.9 Complete or unspecified spontaneous abortion without complication (principal)
CPT/HCPCS: 36415; 76817; 80053; 81001; 83690; 84702; 85025; 99284

== ENCOUNTER → 2018-03-12 | Outpatient (CLI) | payer OTHER | LOC: LAB 11:11 | PROVIDERS: ATTEND Emergency Medicine | DX: O03.9 Complete or unspecified spontaneous abortion without complication (principal) | CPT/HCPCS: 36415; 84702 ==

== ENCOUNTER → 2018-04-07 | Outpatient (CLI) | payer OTHER, MEDICAID | LOC: OD 10:57 | PROVIDERS: ATTEND Obstetrics & Gynecology Gynecology | DX: O02.1 Missed abortion (principal) | CPT/HCPCS: 36415; 84702 ==

== ENCOUNTER → 2018-04-09 | Outpatient (CLI) | payer OTHER, MEDICAID | LOC: OD 08:41 | PROVIDERS: ATTEND Obstetrics & Gynecology Gynecology | DX: O02.1 Missed abortion (principal) | CPT/HCPCS: 36415; 84702 ==

== ENCOUNTER 2018-06-06 01:05 | Emergency (ER) | payer MEDICAID, OTHER ==
[2018-06-06] MEDS ORDERED: OXYCODONE-ACETAMINOPHEN 5-325 MG TABLET PO ONE (01:32)
--- NOTE | 2018-06-06 01:36 | ER Document Report ---
HPI - HPI Patient complains to provider of: Right knee injury Time Seen by Provider: 06/06/18 01:26 Onset: This afternoon Onset/Duration: Sudden Quality of pain: Sharp Pain Level: 5 Context: Patient states she was running and felt a sudden pop in her right knee. Patient states afterwards she did fall but is uncertain of how she landed. Patient complains of persistent right knee pain and states that she is not able to flex or lift her knee out. Patient states she has been walking with a cane and having a friend to help her to ambulate. Patient denies any previous knee injuries. Associated Symptoms: Other - Right knee joint pain Exacerbated by: Standing, Movement, Walking Relieved by: Denies Similar symptoms previously: No Recently seen / treated by doctor: No - ROS ROS below otherwise negative: Yes Systems Reviewed and Negative: Yes All other systems reviewed and negative - REPRODUCTIVE LMP: 05/30 - MUSCULOSKELETAL Musculoskeletal: REPORTS: Extremity pain, Swelling - DERM Skin Color: Normal Past Medical History - General Information source: Patient - Social History Smoking Status: Never Smoker Frequency of alcohol use: None Drug Abuse: None Occupation: None Family History: Reviewed & Not Pertinent - Medical History Medical History: Negative Renal/ Medical History: Denies: Hx Peritoneal Dialysis Past Surgical History: Reports: Hx Gynecologic Surgery - D&C Vertical Provider Document - CONSTITUTIONAL Agree With Documented VS: Yes Exam Limitations: No Limitations General Appearance: WD/WN, No Apparent Distress - INFECTION CONTROL TRAVEL OUTSIDE OF THE [place] IN LAST 30 DAYS: No - HEENT HEENT: Atraumatic, Normocephalic - NECK Neck: Normal Inspection - RESPIRATORY Respiratory: No Respiratory Distress - CARDIOVASCULAR Pulses: Normal: Dorsalis pedis - MUSCULOSKELETAL/EXTREMETIES Musculoskeletal/Extremeties: Tender - Right knee joint tenderness to area just inferior of patella with mild swelling, no laxity with varus or valgus maneuvers. Patient unable to lift her leg against gravity off of the stretcher - NEURO Level of Consciousness: Awake, Alert, Appropriate Motor/Sensory: No Sensory Deficit - DERM Integumentary: Warm, Dry, No Rash Course - Re-evaluation Re-evalutation: 06/06/18 01:35 Physical exam of the knee limited somewhat as patient unwilling to allow provider to move joint passively, patient most comfortable with knee fully extended 06/06/18 02:09 Patient with exam findings worrisome for a patellar tendon rupture, we will immobilize extremity and encourage follow-up with orthopedics tomorrow for further evaluation. - Vital Signs Vital signs: Temp Pulse Resp BP Pulse Ox 98.1 F 77 16 119/68 99 06/06/18 01:09 06/06/18 01:09 06/06/18 01:09 06/06/18 01:09 06/06/18 01:09 - Diagnostic Test Radiology reviewed: Pending, Image reviewed Procedures - Immobilization Right Knee Pre-Proc Neuro Vasc Exam: Normal Immobilizer type: Colby wrap, Knee immobilizer Performed by: PCT Post-Proc Neuro Vasc Exam: Normal Alignment checked and good: Yes Discharge - Discharge Clinical Impression: patellar tendon injury Right knee sprain Qualifiers: Encounter type: initial encounter Involved ligament of knee: unspecified ligament Qualified Code(s): S83.91XA - Sprain of unspecified site of right knee , initial encounter Condition: Stable Disposition: HOME, SELF-CARE Instructions: Use of Crutches ([facility]), Ice & Elevation ([facility]), Suspected Internal Knee Injury ([facility]), Knee Immobilizing Splint ([facility]), Oral Narcotic Medication ([facility] ) Additional Instructions: Return immediately for any new or worsening symptoms Followup with your primary care provider, call tomorrow to make a followup appointment Follow-up with orthopedics for further evaluation, call first thing in the morning for an appointment Prescriptions: Naproxen [Naprosyn 250 Nmg Tablet] 1 tab PO BID #14 tablet Oxycodone HCl/Acetaminophen [Percocet 5-325 mg Tablet] 1 tab PO ASDIR PRN #15 tablet PRN Reason: Referrals: [facility] [Provider Group] - Follow up as needed [facility] [Provider Group] - Follow up as needed
[2018-06-06 02:21] VITALS: BP 109/68
--- NOTE | 2018-06-06 02:42 | RADIOLOGY REPORT (SQ) ---
EXAM DESCRIPTION: XR KNEE 4 OR MORE VIEWS COMPLETED DATE/TME: 06/06/2018 01:33 CLINICAL HISTORY: 27 years, Female, felt pop, fell, anterior knee pain COMPARISON: None. NUMBER OF VIEWS: 4 TECHNIQUE: 4 view right knee LIMITATIONS: None. FINDINGS: Negative for fracture or dislocation. Soft tissues are unremarkable. Joint spaces are preserved IMPRESSION: Negative exam copyright 2010 [employer]- All Rights Reserved
== END 2018-06-06 02:25 | disposition home or self-care (01) ==
LOC: ER 01:05
DX: S83.91XA Sprain of unspecified site of right knee, initial encounter (principal); X58.XXXA Exposure to other specified factors, initial encounter; Y93.02 Activity, running
CPT/HCPCS: 99283; 73564; L1830

== ENCOUNTER 2018-07-24 21:16 | Emergency (ER) | payer OTHER, MEDICAID ==
[2018-07-24 23:09] LABS: ABSOLUTE EOSINOPHILS # (AUTO) 0.1 10^3/uL (0.0-0.6); ABSOLUTE LYMPHOCYTES (AUTO) 1.9 10^3/uL (0.5-4.7); ABSOLUTE MONOCYTES (AUTO) 0.6 10^3/uL (0.1-1.4); ABSOLUTE NEUT (AUTO) 3.3 10^3/uL (1.7-8.2); BASOPHILS % (AUTO) 0.8 % (0-2); EOSINOPHILS % (AUTO) 1.7 % (0-6); HEMATOCRIT 41.1 % (36.0-47.0); HEMOGLOBIN 13.6 g/dL (12.0-15.5); LYMPHOCYTES % (AUTO) 31.8 % (13-45); MEAN CORPUSCULAR HEMOGLOBIN 28.5 pg (27.0-33.4); MEAN CORPUSCULAR HGB CONC 33.1 g/dL (32.0-36.0); MEAN CORPUSCULAR VOLUME 86 fl (80-97); MONOCYTES % (AUTO) 9.4 % (3-13); PLATELET COUNT 202 10^3/uL (150-450); RED BLOOD COUNT 4.77 10^6/uL (3.72-5.28); SEGMENTED NEUTROPHILS % (AUTO) 56.3 % (42-78); TOTAL CELLS COUNTED % (AUTO) 100 %; WHITE BLOOD COUNT 5.9 10^3/uL (4.0-10.5)
--- NOTE | 2018-07-24 23:10 | ER Document Report ---
ED Medical Screen (RME) - General Chief Complaint: Vag Bleeding, +preg <12wks Stated Complaint: POSSIBLE MISCARRIAGE Time Seen by Provider: 07/24/18 23:03 Notes: 27-year-old (18 weeks) A4 P2 presents to the emergency department for concern of possible miscarriage. At 1800 today she passed bright red blood, no clots, and complained of burning back pain. She is getting her OB care from the women's health clinic in [place]. I have greeted and performed a rapid initial assessment of this patient. A comprehensive ED assessment and evaluation of the patient, analysis of test results and completion of medical decision making process will be conducted by an additional ED providers. TRAVEL OUTSIDE OF THE [place] IN LAST 30 DAYS: No - Related Data Allergies/Adverse Reactions: shrimp Allergy (Verified 08/27/17 10:58) Past Medical History Renal/ Medical History: Denies: Hx Peritoneal Dialysis Musculoskeltal Medical History: Reports Hx Arthritis Past Surgical History: Reports: Hx Gynecologic Surgery - D&C - Immunizations History of Influenza Vaccine for 04/2017 - 09/2017 Season: Yes Influenza Administration Date for 04/2017 - 09/2017 Season: 04/05/17 Physical Exam - Vital signs Vitals: Temp Pulse Resp BP Pulse Ox 98.6 F 64 19 119/64 100 07/24/18 21:26 07/24/18 21:26 07/24/18 21:26 07/24/18 21:26 07/24/18 21:26 - Abdominal Inspection: Normal Distension: No distension Bowel sounds: Normal Tenderness: Nontender - Back Back: Normal, Tender - Unable to elicit tenderness to palpation but complaining of a steady burning pain. No: CVA tenderness Course - Vital Signs Vital signs: Temp Pulse Resp BP Pulse Ox 98.6 F 64 19 119/64 100 07/24/18 21:26 07/24/18 21:26 07/24/18 21:26 07/24/18 21:26 07/24/18 21:26 - Laboratory Result Diagrams: 07/24/18 22:38 Doctor's Discharge - Discharge [facility]errals: [facility] - Follow up as needed
[2018-07-24 23:16] LABS: APPEARANCE,URINE SLIGHTLY-CLOUDY; BILIRUBIN,URINE NEGATIVE (NEGATIVE); COLOR,URINE YELLOW; GLUCOSE, URINE NEGATIVE (NEGATIVE); KETONES,URINE NEGATIVE (NEGATIVE); LEUKOCYTE ESTERASE,URINE LARGE (NEGATIVE); NITRITE,URINE NEGATIVE (NEGATIVE); PROTEIN,URINE 30 mg/dL (NEGATIVE); URINE SPECIFIC GRAVITY 1.028
[2018-07-24 23:28] LABS: ANION GAP 8 (5-19); BLOOD UREA NITROGEN 13 mg/dL (7-20); CALCIUM 9.5 mg/dL (8.4-10.2); CARBON DIOXIDE 27 mmol/L (22-30); CHLORIDE 103 mmol/L (98-107); GLUCOSE 86 mg/dL (75-110); POTASSIUM 4.1 mmol/L (3.6-5.0)
--- NOTE | 2018-07-25 00:28 | RADIOLOGY REPORT (SQ) ---
EXAM DESCRIPTION: US TRANSVAGINAL COMPLETED DATE/TME: 07/24/2018 23:04 CLINICAL HISTORY: 27 years, Female, concern for miscarriage COMPARISON: None. TECHNIQUE: LIMITATIONS: None. FINDINGS: There is a 6 week 2 day intrauterine embryo, with no evidence of cardiac activity, worrisome for embryonic demise. No evidence of subchorionic hemorrhage. The cervix measures 4 cm in length and is closed. The ovaries are unremarkable. IMPRESSION: Findings are worrisome for embryonic demise. If clinically warranted, follow-up ultrasound can be performed in several days, to reevaluate for the presence of embryonic cardiac activity. copyright 2010 [employer]- All Rights Reserved
--- NOTE | 2018-07-25 00:44 | ER Document Report ---
ED General - General Chief Complaint: Vag Bleeding, +preg <12wks Stated Complaint: POSSIBLE MISCARRIAGE Time Seen by Provider: 07/24/18 23:03 Notes: 27-year-old (18 weeks) A4 P2 presents to the emergency department for concern of possible miscarriage. At 1800 today she passed bright red blood, no clots, and complained of burning back pain. She is getting her OB care from the women's health clinic in [place]. She denies fevers, chills, nausea, vomiting, dizziness, lightheadedness, urinary symptoms TRAVEL OUTSIDE OF THE [place] IN LAST 30 DAYS: No - Related Data Allergies/Adverse Reactions: shrimp Allergy (Verified 08/27/17 10:58) Past Medical History - General Information source: Patient - Social History Smoking Status: Never Smoker Family History: Reviewed & Not Pertinent Renal/ Medical History: Denies: Hx Peritoneal Dialysis Musculoskeletal Medical History: Reports Hx Arthritis Past Surgical History: Reports: Hx Gynecologic Surgery - D&C, multiple miscarriages Review of Systems - Review of Systems Constitutional: See HPI EENT: No symptoms reported Cardiovascular: See HPI Respiratory: See HPI Gastrointestinal: See HPI Genitourinary: See HPI Female Genitourinary: See HPI Musculoskeletal: No symptoms reported Skin: No symptoms reported Hematologic/Lymphatic: No symptoms reported Neurological/Psychological: No symptoms reported Physical Exam - Vital signs Vitals: Temp Pulse Resp BP Pulse Ox 98.6 F 64 19 119/64 100 07/24/18 21:26 07/24/18 21:26 07/24/18 21:26 07/24/18 21:26 07/24/18 21:26 Course - Re-evaluation Re-evalutation: 07/25/18 00:34 Patient presents for concern for miscarriage after passing bright red blood earlier this evening. A transvaginal ultrasound was performed that showed a 6- week 2-day intrauterine embryo with no evidence of cardiac activity. Cervix measured 4 cm and is closed. After consulting with Dr. Montiel it is too early t o tell if this is truly demise as it could just be too early to tell based on the age. I advised patient that she should follow-up with women's clinic on Thursday morning to see if they want to do a repeat ultrasound in 1 week or see her sooner. Also, patient has a urinary tract infection. Plan is to give her Keflex 500 mg p.o. 1 time now and a prescription for Keflex 500 mg twice daily for 7 days. Patient is stable to discharge home with close follow-up with women's clinic. 07/25/18 00:59 - Vital Signs Vital signs: Temp Pulse Resp BP Pulse Ox 98.6 F 64 19 119/64 100 07/24/18 21:26 07/24/18 21:26 07/24/18 21:26 07/24/18 21:26 07/24/18 21:26 - Laboratory Result Diagrams: 07/24/18 22:38 07/24/18 22:38 Laboratory results interpreted by me: 07/24/18 07/24/18 22:38 22:38 RDW 15.0 H Urine Protein 30 H Urine Blood MODERATE H Urine Urobilinogen 4.0 H Ur Leukocyte Esterase LARGE H Discharge - Discharge Clinical Impression: Vaginal bleeding affecting early , Urinary tract infection affecting care of mother in first trimester, antepartum Condition: Stable Disposition: HOME, SELF-CARE Instructions: Urinary Tract Infection ([facility]) Additional Instructions: You were seen in the emergency department this evening for vaginal bleeding. Your ultrasound was concerning for a potential miscarriage but like we talked about because of the age of the embryo it truly is too early to tell. Please call the women's clinic on Thursday to engage in a care plan moving forward. Also, you have a urinary tract infection. You will get 1 dose of antibiotics in the emergency department before leaving and will receive a prescription for a medication called Keflex which she should take twice a day for 7 days. Please take it until it is completely gone. If you start to have heavy severe bleeding, become lightheaded, develop severe abdominal pain, or have any other concerning symptoms please return to the emergency department. Referrals: [facility] [[facility]] - Follow up as needed
[2018-07-25] MEDS ORDERED: CEPHALEXIN 500 MG CAPSULE PO ONE ×2 (00:52→01:32)
[2018-07-25] MEDS ORDERED: NITROFURANTOIN MONOHYD/M-CRYST 100 MG CAPSULE PO ONE (00:53)
[2018-07-25 02:03] VITALS: BP 112/76
== END 2018-07-25 01:20 | disposition home or self-care (01) ==
LOC: ER 21:16
DX: O46.91 Antepartum hemorrhage, unspecified, first trimester (principal); O23.41 Unspecified infection of urinary tract in pregnancy, first trimester; Z3A.01 Less than 8 weeks gestation of pregnancy
CPT/HCPCS: 36415; 76817; 80048; 81001; 85025; 86900; 86901; 93976; 99284

== ENCOUNTER 2018-07-26 10:29 | Day surgery (SDC) | payer MEDICAID, OTHER ==
[2018-07-26 11:14] LABS: HEMATOCRIT 39.4 % (36.0-47.0); HEMOGLOBIN 12.8 g/dL (12.0-15.5); MEAN CORPUSCULAR HEMOGLOBIN 28.1 pg (27.0-33.4); MEAN CORPUSCULAR HGB CONC 32.6 g/dL (32.0-36.0); MEAN CORPUSCULAR VOLUME 86 fl (80-97); PLATELET COUNT 204 10^3/uL (150-450); RED BLOOD COUNT 4.57 10^6/uL (3.72-5.28); RED CELL DISTRIBUTION WIDTH 14.9 % (11.5-14.0); WHITE BLOOD COUNT 5.4 10^3/uL (4.0-10.5)
[2018-07-26] MEDS ORDERED: FENTANYL CITRATE INJ/PF 100 MCG/2 ML AMPUL ONE (11:16)
[2018-07-26] MEDS ORDERED: ONDANSETRON HCL INJ/PF 4 MG/2 ML SDV ONE (11:17)
[2018-07-26] MEDS ORDERED: MIDAZOLAM 2 MG/2 ML INJ ONE (11:17)
[2018-07-26] MEDS ORDERED: PROPOFOL INJ 200 MG/20 ML VIAL IV ONE (11:17)
[2018-07-26] MEDS ORDERED: DEXAMETHASONE SOD PHOSPHATE INJ 4 MG/1 ML VIAL ONE (11:17)
[2018-07-26] MEDS ORDERED: DOXYCYCLINE HYCLATE 100 MG in DEXTROSE 5%-WATER 250 ML IV PRN (11:30)
[2018-07-26] MEDS ORDERED: MISOPROSTOL 0.2 MG TABLET ONE (11:41)
[2018-07-26] MEDS: MEPERIDINE HCL/PF INJ 25 MG/1 ML DISP.SYRIN ONE ×2 (12:05→12:10)
[2018-07-26] MEDS ORDERED: MEPERIDINE HCL/PF INJ 25 MG/1 ML DISP.SYRIN IV PRN (12:06)
[2018-07-26] MEDS ORDERED: DIPHENHYDRAMINE HCL 50 MG/ML VIAL IV PRN (12:06)
[2018-07-26] MEDS ORDERED: FENTANYL CITRATE INJ/PF 100 MCG/2 ML AMPUL IV PRN ×3 (12:06)
--- NOTE | 2018-07-26 12:19 | Operative Report ---
Operative Report DATE OF SURGERY: 07/26/18 PREOPERATIVE DIAGNOSIS: 1. Missed at 6 weeks. 2. Rh Positive POSTOPERATIVE DIAGNOSIS: Same OPERATION: Suction dilatation and curettage SURGEON: JAVIER ARTEAGA ANESTHESIA: LMAC TISSUE REMOVED OR ALTERED: Products of conception COMPLICATIONS: None ESTIMATED BLOOD LOSS: 100 mL INTRAOPERATIVE FINDINGS: Uterus sounded 8 cm; cervix dilated 1 cm; moderate amounts of products of conception; 8 mm curved Mohawk curette used PROCEDURE: The patient was taken to the Operating Room where general anesthesia was obtained without difficulty. She was prepped and draped in the normal sterile fashion in the dorsal lithotomy position. Exam under anesthesia was performed and noted above. A speculum was placed in the vagina. The anterior cervix was grasped with a single-tooth tenaculum and the uterus sounded to 8 cm. The cervix was noted to be dilated approximately 1 cm. There was a moderate amount of clots extruding from the cervical office. The 8 mm curved suction curet was gently advanced in the usual fashion and good return of tissue. The suction device was then activated and the curet rotated to clear the uterus of the products of conception. A sharp curettage was then performed. The suction device was then gently reintroduced and activated and the curet rotated to clear the uterus of conception which was loosened with recent sharp curettage. The sharp curettage was then performed again until a gritty texture was noted and the cavity was felt to be empty of further tissue. At this time there was minimal bleeding noted from the cervix. All instruments were removed from the patient's cervix and vagina. Monsel's solution was applied to the tenaculum site for hemostasis. Sponge, lap, and instrument counts are correct 2. Doxycycline 100 mg IV was given perioperatively. Cytotec 800 mcg per rectum was given. The patient tolerated the procedure well and was taken to the recovery area awake and in stable condition.
[2018-07-26] MEDS ORDERED: OXYCODONE-ACETAMINOPHEN 5-325 MG TABLET PO PRN (12:31)
[2018-07-26] MEDS ORDERED: ONDANSETRON HCL INJ/PF 4 MG/2 ML SDV IV PRN (12:31)
[2018-07-26] MEDS ORDERED: OXYCODONE-ACETAMINOPHEN 5-325 MG TABLET ONE (12:48)
[2018-07-26 14:16] VITALS: BP 101/64
== END 2018-07-26 14:00 | disposition home or self-care (01) ==
LOC: OROUT 10:29
PROVIDERS: ATTEND Obstetrics & Gynecology
DX: O02.1 Missed abortion (principal); Z67.90 Unspecified blood type, Rh positive
CPT/HCPCS: 86900; 86901; 36415; 86850; 85027; 88305 ×2; 59820; J2250; J1100; J3490; J3010; J2175; J2405; J7060; J2704; 1965

== ENCOUNTER 2019-04-07 07:27 | Outpatient (CLI) | payer OTHER, MEDICAID ==
[2019-04-07 07:55] LABS: AMORPHOUS SEDIMENT,URINE TRACE /HPF; APPEARANCE,URINE CLOUDY; BILIRUBIN,URINE NEGATIVE (NEGATIVE); COLOR,URINE YELLOW; GLUCOSE, URINE NEGATIVE (NEGATIVE); KETONES,URINE NEGATIVE (NEGATIVE); LEUKOCYTE ESTERASE,URINE SMALL (NEGATIVE); NITRITE,URINE NEGATIVE (NEGATIVE); PROTEIN,URINE 30 mg/dL (NEGATIVE); URINE SPECIFIC GRAVITY 1.019
[2019-04-07 08:11] LABS: URINE AMPHETAMINES SCREEN NEGATIVE; URINE BARBITURATES SCREEN NEGATIVE; URINE BENZODIAZEPINES SCREEN NEGATIVE; URINE COCAINE SCREEN NEGATIVE; URINE MARIJUANA (THC) SCREEN NEGATIVE; URINE METHADONE SCREEN NEGATIVE; URINE PHENCYCLIDINE SCREEN NEGATIVE
--- NOTE | 2019-04-07 08:38 | Non Stress Test Report ---
Non Stress Test Datetime Report Generated by CPN: 04/07/2019 08:38 DEMOGRAPHIC EGA NST: 32.2 INDICATION Indication for Study: Ordered by Provider VITAL SIGNS Temperature - NST: 98.4 RESP - NST: 16 MONITORING Monitor Explained: Monitor Explained; Test Explained; Patient Verbalized Understanding Time on Monitor: 04/07/2019 07:35 Time off Monitor: 04/07/2019 08:35 NST Duration: 60 NST INTERVENTIONS NST Interventions: PO Hydration; Reposition Patient Physician Notified NST: J BOYKIN CNM BABY A: [id number] BABY A Movement : Present Contraction Frequency : 0 FHR Baseline : 140 Accelerations : 15X15 Decelerations : None NST Review: Questionable if Meets Criteria for Reactive NST NST Review and Verified By : Rom Concepcion, RN NST REPORT Report Trigger: Send Report
== END 2019-04-07 09:00 | disposition home or self-care (01) ==
LOC: LC 07:27
PROVIDERS: ATTEND Obstetrics & Gynecology
PROC: 4A1HXCZ Monitoring of Products of Conception, Cardiac Rate, External Approach (ICD-10-PCS; principal; 2019-04-07)
DX: O36.8130 Decreased fetal movements, third trimester, not applicable or unspecified (principal); Z3A.32 32 weeks gestation of pregnancy
CPT/HCPCS: 59025; 80307; 81001

== ENCOUNTER 2019-04-30 10:29 | Outpatient (CLI) | payer OTHER, MEDICAID ==
[2019-04-30 11:13] LABS: APPEARANCE,URINE CLEAR; BILIRUBIN,URINE NEGATIVE (NEGATIVE); COLOR,URINE YELLOW; GLUCOSE, URINE NEGATIVE (NEGATIVE); KETONES,URINE NEGATIVE (NEGATIVE); LEUKOCYTE ESTERASE,URINE NEGATIVE (NEGATIVE); NITRITE,URINE NEGATIVE (NEGATIVE); PROTEIN,URINE NEGATIVE (NEGATIVE); URINE SPECIFIC GRAVITY 1.008; UROBILINOGEN,URINE NEGATIVE mg/dL (<2.0)
[2019-04-30] MEDS ORDERED: BETAMET ACET/BETAMET NA INJ 6 MG/1 ML IM ONE (11:14)
[2019-04-30] MEDS ORDERED: RINGERS SOLUTION,LACTATED 1,000 ML IV PRN (11:15)
[2019-04-30] MEDS ORDERED: RINGERS SOLUTION,LACTATED 1,000 ML IV ONE (11:15)
[2019-04-30] MEDS ORDERED: BETAMET ACET/BETAMET NA INJ 6 MG/1 ML ONE (11:25)
[2019-04-30 11:26] LABS: URINE AMPHETAMINES SCREEN NEGATIVE; URINE BARBITURATES SCREEN NEGATIVE; URINE BENZODIAZEPINES SCREEN NEGATIVE; URINE COCAINE SCREEN NEGATIVE; URINE MARIJUANA (THC) SCREEN NEGATIVE; URINE METHADONE SCREEN NEGATIVE; URINE PHENCYCLIDINE SCREEN NEGATIVE
[2019-04-30] MEDS ORDERED: TERBUTALINE SULFATE INJ/PF 1 MG/1 ML SDV ONE (12:51)
[2019-04-30] MEDS ORDERED: TERBUTALINE SULFATE INJ/PF 1 MG/1 ML SDV SUBCUT ONE (12:53)
--- NOTE | 2019-04-30 15:33 | Non Stress Test Report ---
Non Stress Test Datetime Report Generated by CPN: 04/30/2019 15:33 DEMOGRAPHIC EGA NST: 35.4 INDICATION Indication for Study: labor; Ordered by Provider MONITORING Monitor Explained: Monitor Explained; Test Explained; Patient Verbalized Understanding Time on Monitor: 04/30/2019 11:02 Time off Monitor: 04/30/2019 15:03 NST Duration: 241 NST INTERVENTIONS NST Interventions: IV Fluids Physician Notified NST: Dr. Curry BABY A: [id number] BABY A Movement : Present Contraction Frequency : 4-9 FHR Baseline : 140 Accelerations : 15X15 Decelerations : None Variability : Moderate 6-25bpm NST Review: Meets Criteria for Reactive NST NST Review and Verified By : Medina Rodriguez RN NSShailesh Results: Reactive NST COMMENTS NST Comments: Dr. Curry on unit, reviewed strip. NST REPORT Report Trigger: Send Report
== END 2019-04-30 15:12 | disposition home or self-care (01) ==
LOC: LC 10:29
PROVIDERS: ATTEND Student in an Organized Health Care Education/Training Program
PROC: 4A1HXCZ Monitoring of Products of Conception, Cardiac Rate, External Approach (ICD-10-PCS; principal; 2019-04-30)
DX: O60.03 Preterm labor without delivery, third trimester (principal); Z3A.35 35 weeks gestation of pregnancy
CPT/HCPCS: 59025; 94760; 96372; 36415; 81005; 86695; 80307; J0702; J3105

== ENCOUNTER → 2019-05-01 | Outpatient (CLI) | payer OTHER, MEDICAID ==
[~2019-05-01] MED LIST: BETAMET ACET/BETAMET NA INJ 6 MG/1 ML ONE
== END ==
LOC: LC 12:11
PROVIDERS: ATTEND Obstetrics & Gynecology
PROC: 4A1HXCZ Monitoring of Products of Conception, Cardiac Rate, External Approach (ICD-10-PCS; principal; 2019-05-01)
DX: O60.03 Preterm labor without delivery, third trimester (principal); Z3A.35 35 weeks gestation of pregnancy
CPT/HCPCS: 59025; 96372; J0702

== ENCOUNTER 2019-05-24 09:51 | Inpatient (IN) | payer OTHER, MEDICAID ==
[2019-05-24] MEDS ORDERED: OXYTOCIN 10 UNIT/ML VIAL ONE (09:53)
[2019-05-24] MEDS ORDERED: MISOPROSTOL 0.2 MG TABLET ONE (09:53)
[2019-05-24] MEDS ORDERED: OXYTOCIN/NORMAL SALINE 20 UNIT/1,000 ML RTUINJ ONE (09:54)
[2019-05-24] MEDS ORDERED: LIDOCAINE 1% INJ-PF (10 MG/ML) 30 ML SDV ONE (09:54)
[2019-05-24] MEDS ORDERED: RINGERS SOLUTION,LACTATED 1,000 ML IV PRN (09:59)
[2019-05-24] MEDS ORDERED: RINGERS SOLUTION,LACTATED 500 ML IV ONE (10:05)
[2019-05-24] MEDS ORDERED: OXYTOCIN/NORMAL SALINE 20 UNIT/1,000 ML RTUINJ IV PRN ×2 (10:05→16:39)
[2019-05-24 10:48] LABS: APPEARANCE,URINE CLOUDY; BILIRUBIN,URINE NEGATIVE (NEGATIVE); GLUCOSE, URINE NEGATIVE (NEGATIVE); KETONES,URINE TRACE mg/dL (NEGATIVE); LEUKOCYTE ESTERASE,URINE LARGE (NEGATIVE); NITRITE,URINE NEGATIVE (NEGATIVE); PROTEIN,URINE 30 mg/dL (NEGATIVE); URINE SPECIFIC GRAVITY 1.024
[2019-05-24 10:51] LABS: COLOR,URINE DARK YELLOW
[2019-05-24 11:04] LABS: URINE AMPHETAMINES SCREEN NEGATIVE; URINE BARBITURATES SCREEN NEGATIVE; URINE BENZODIAZEPINES SCREEN NEGATIVE; URINE COCAINE SCREEN NEGATIVE; URINE MARIJUANA (THC) SCREEN NEGATIVE; URINE METHADONE SCREEN NEGATIVE; URINE PHENCYCLIDINE SCREEN NEGATIVE
[2019-05-24 11:32] LABS: HEMATOCRIT 36.5 % (36.0-47.0); HEMOGLOBIN 12.1 g/dL (12.0-15.5); MEAN CORPUSCULAR HEMOGLOBIN 29.9 pg (27.0-33.4); MEAN CORPUSCULAR HGB CONC 33.2 g/dL (32.0-36.0); MEAN CORPUSCULAR VOLUME 90 fl (80-97); PLATELET COUNT 132 10^3/uL (150-450); RED BLOOD COUNT 4.06 10^6/uL (3.72-5.28); RED CELL DISTRIBUTION WIDTH 14.9 % (11.5-14.0); WHITE BLOOD COUNT 10.1 10^3/uL (4.0-10.5)
[2019-05-24] MEDS ORDERED: MORPHINE SULFATE 10 MG/ML INJ IV ONE (14:25)
[2019-05-24] MEDS ORDERED: MORPHINE SULFATE 10 MG/ML INJ ONE (14:26)
--- NOTE | 2019-05-24 14:39 | Admission Physical ---
Datetime Report Generated by CPN: 05/24/2019 14:38 CURRENT ADMISSION Chief Complaint: Other Chief Complaint Other: direct admit per Dr Murdock for IOL Admit Impression : Term, Intrauterine Admit Plan: Admit to Unit; Initiate Labor Induction Protocol ALLERGIES Medication Allergies: No Medication Allergies: shrimp (05/24/2019) Latex: No Latex Allergies Food Allergies: shrimp Environmental Allergies: none OBSTETRICAL HISTORY EDC: 05/31/2019 00:00 : 7 Para: 2 Term: 2 : 0 SAB: 4 IAB: 0 Ectopic: 0 Livin Cesareans: 0 VBACs: 0 Multiple Births: 0 Gestational Diabetes: No Rh Sensitization: No Incompetent Cervix: No CHLOE: No Infertility: No ART Treatment: No Uterine Anomaly: No IUGR: No Hx Previous C/S: No Macrosomia: No Hx Loss/Stillborn: Yes PIH: No Hx : No Placenta Previa/Abruption: Yes Depression/PP Depression: No PTL/PROM: No Post Hemorrhage: No Current Procedures: Ultrasound Obstetrical History Comments: G1- 9 wks SAB - 2010 16wks SAB G3-2015 term G4- 2018 term G5- 2018 SAB G6- 2018 [facility] G7- current SEE RECORDS Alcohol: No Marijuana : No Cocaine: No Other Illicit Drugs: No Cigarettes: Never Smoker. 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 D_C INFECTIOUS HISTORY Gonorrhea: No Genital Herpes: Yes Chlamydia: No Tuberculosis: No Syphilis: No Hepatitis: No HIV/AIDS Exposure: No Rash or Viral Illness: No HPV: No Infectious History Comments: HSV PHYSICAL EXAM General: Normal HEENT: Normal Neurologic: Normal Thyroid: Deferred Heart: Normal Lungs: Normal Breast: Deferred Back: Normal Abdomen: Normal Genitourinary Exam: Normal Extremities: Normal DTRs: Deferred Pelvic Type: Adequate Physical Exam Comments: pelvis proven to 8#3 Vital Signs: Reviewed; Within Normal Limits VAGINAL EXAM Dilatation: 3 Effacement: 80 Station: -2 Contraction Comments: rare MEMBRANES Membranes: Intact FETUS A EGA: 39.0 Monitoring: External US FHR- Baseline: 140 Variability: Moderate 6-25bpm Accelerations: 10X10 Decelerations: Late Estimated Weight (gm): 3400 Presentation: Vertex Admit Comment: at 39 weeks with hx hsv, was scheduled for c/s in AM, saw Dr Murdock today who did exam for hsv and sent for elective IOL today PLANS FOR LABOR AND DELIVERY Labor and Delivery: Plan Pain Management: Natural Feeding Preference: Breast Benefit of Breast Feed Discussed: Yes Circumcision: N/A INFORMED CONSENT Informed Consent Obtained: Vaginal Delivery; Induction of Labor Assignment: Lesli Lopez MD Signature: with User ID: [email or web address] : with User ID: [email or web address]
[2019-05-24] MEDS ORDERED: BUPIVACAINE HCL 0.25 % INJ/PF (2.5 MG/1 ML) 30 ML VIAL ONE (15:48)
[2019-05-24] MEDS ORDERED: FENTANYL/BUPIVACAINE/NS/PF 300 MCG/150 ML RTUINJ EPI ONE (15:48)
[2019-05-24] MEDS ORDERED: EPHEDRINE SULFATE INJ 50 MG/1 ML AMPULE ONE (15:48)
[2019-05-24] MEDS ORDERED: OXYCODONE-ACETAMINOPHEN 5-325 MG TABLET PO ONE (16:38)
[2019-05-24] MEDS ORDERED: PROMETHAZINE HCL 25 MG SUPP.RECT PR PRN (16:39)
[2019-05-24] MEDS ORDERED: MEASLES,MUMPS&RUBELLA VACC/PF 0.5 ML VIAL SUBCUT PRN (16:39)
[2019-05-24] MEDS ORDERED: DIPH/PERTUSS(ACELL)/TETANUS VAC/PF 0.5 ML SYR (>=10YO) IM PRN (16:39)
[2019-05-24] MEDS ORDERED: GLYCERIN/WITCH HAZEL LEAF 1 EACH MED..WIPE TP PRN (16:39)
[2019-05-24] MEDS ORDERED: PSEUDOEPHEDRINE HCL 30 MG TABLET PO PRN (16:39)
[2019-05-24] MEDS ORDERED: ZOLPIDEM TARTRATE 5 MG TABLET PO PRN (16:39)
[2019-05-24] MEDS ORDERED: PROMETHAZINE HCL INJ 25 MG/1 ML VIAL IV PRN (16:39)
[2019-05-24] MEDS ORDERED: PROMETHAZINE HCL 25 MG TABLET PO PRN (16:39)
[2019-05-24] MEDS ORDERED: DIBUCAINE 1% OINTMENT 56 GM TP PRN (16:39)
[2019-05-24] MEDS ORDERED: BENZOCAINE/MENTHOL AEROSOL SPRAY 56 ML TOP PRN (16:39)
[2019-05-24] MEDS ORDERED: ACETAMINOPHEN 650 MG SUPP.RECT PR PRN (16:39)
[2019-05-24] MEDS ORDERED: ACETAMINOPHEN WITH CODEINE #3 TABLET PO PRN (16:39)
[2019-05-24] MEDS ORDERED: MAGNESIUM HYDROXIDE SUSP 30 ML UDCUP PO PRN (16:39)
[2019-05-24] MEDS ORDERED: DIPHENHYDRAMINE HCL 25 MG CAPSULE PO PRN (16:39)
[2019-05-24] MEDS ORDERED: NA PHOS,M-B/NA PHOS,DI-BA (ADULT) 133 ML ENEMA PR PRN (16:39)
[2019-05-24] MEDS ORDERED: ACETAMINOPHEN WITH CODEINE #3 TABLET ONE (16:41)
[2019-05-24] MEDS ORDERED: AMMONIA INHALANTS 10 AMPUL/BOX IH ONE (18:48)
--- NOTE | 2019-05-24 19:01 | Delivery Summary ---
Del Sum A-C Datetime Report Generated by CPN: 05/24/2019 19:01 DELIVERY PERSONNEL DELIVERY PERSONNEL: [id number] Delivery Doctor:: Lesli Lopez MD Labor and Delivery Nurse:: Liz Montelongo RNgrounds manager Nurse:: Mireille Russo RN Safety Coordinator/COMMERCIAL LIGHT FIXTURE ASSEMBLER: Liliana Barber, ST MATERNAL INFORMATION Delivery Anesthesia: Epidural Medications After Delivery: Pitocin Drip 20 Units/1000ml NSS Estimated Blood Loss (ml): 250 Delivery QBL: 300 Maternal Complications: None LABOR SUMMARY EDC: 05/31/2019 00:00 No. Babies in Womb: 1 Attempted: No Labor Anesthesia: Epidural LABOR INFORMATION Reason for Induction: Other Reason for Induction- Other: ELECTIVE Onset of Labor: 05/24/2019 14:17 Oxytocin: Induction Group B Beta Strep: negative Steroids Given: None Reason Steroids Not Administered: Not Applicable MEMBRANES Membranes Rupture Method: Artificial Rupture of Membranes: 05/24/2019 14:17 Length of Rupture (hr): 2.12 Amniotic Fluid Color: Clear Amniotic Fluid Amount: Moderate Amniotic Fluid Odor: None STAGES OF LABOR Stage 3 hr: 0 Stage 3 min: 6 Total Time in Labor hr: 2 Total Time in Labor min: 13 VAGINAL DELIVERY Episiotomy: None Laceration #1: None Laceration Extension #1: N/A Laceration #2: None Laceration Extension #2: N/A Laceration #3: None Laceration Extension #3: N/A Laceration Repair: Not Applicable Sponge Count Correct: N/A Sharps Count Correct: N/A CSECTION DELIVERY Primary Indication: N/A Secondary Indication: N/A CSection Incidence: N/A Labor: N/A Elective: N/A CSection Incision: N/A BABY A INFORMATION Delivery Date/Time: 05/24/2019 16:24 (Annotations: Data stored by [facility] on behalf of user) Method of Delivery: Vaginal Born in Route : No : N/A Forceps: N/A Vacuum Extraction: N/A Shoulder Dystocia : No PRESENTATION/POSITION BABY A Presentation: Cephalic Cephalic Presentation: Vertex Vertex Position: Right Occipital Anterior Breech Presentation: N/A PLACENTA INFORMATION BABY A Placenta Delivery Time : 05/24/2019 16:30 Placenta Method of Delivery: Spontaneous Placenta Status: Delivered SCORES BABY A Heart Rate 1 min: >100 bpm Resp Effort 1 min: Slow, Irregular Reflex Irritability 1 min: Cough or Sneeze or Pulls Away Muscle Tone 1 min: Active Motion Color 1 min: Body [place], Extremities Blue Resuscitation Effort 1 min: Tactile Stimulation SCORE 1 MIN: 8 Heart Rate 5 min: >100 bpm Resp Effort 5 min: [place] Reflex Irritability 5 min: Cough or Sneeze or Pulls Away Muscle Tone 5 min: Active Motion Color 5 min: Body [place], Extremities Blue Resuscitation Effort 5 min: N/A SCORE 5 MIN: 9 INFORMATION BABY A Gestational Age at Delivery: 39.0 Gestational Status: Full Term- 39- 40.6 Weeks Outcome : Liveborn Infant Condition : Stable Infant Sex: Female IDENTIFICATION BABY A Verification Date/Time: 05/24/2019 17:05 ID Band Number: [id number] Mother's Name Verified: Yes RN Verifying Infant: Rom MONTELONGO, RN KMandeep RUSSO, RN WEIGHT/LENGTH BABY A Infant Birthweight (gm): 4129 Infant Weight (lb): 9 Weight (oz): 2 Infant Length (in): 21.00 Length (cm): 53.34 CORD INFORMATION BABY A No. Cord Vessels: 3 Nuchal Cord : N/A Cord Blood Taken: Yes-For Eval (Mom's Blood Type - or O+) Infant Suction: None ASSESSMENT BABY A Complications: None Physical Findings at Delivery: Within Normal Limits Respirations: Appears Normal Skin to Skin: Yes Employment Assistant/ALS Called : No Infant Care By: Karen RUSSO RN Transferred To: Remains with Mother BABY B INFORMATION : N/A SIGNATURES Signature: with User ID: [email or web address] : I was personally available for consultation and serving as supervising physician for the MLP.
[2019-05-24] MEDS: FERROUS SULFATE 325 MG TABLET PO SCH (19:13)
[2019-05-24] MEDS: DOCUSATE SODIUM 100 MG CAPSULE PO SCH (19:13)
[2019-05-24] MEDS: FAMOTIDINE 20 MG TABLET PO SCH (21:10)
[2019-05-24] MEDS: IBUPROFEN 800 MG TABLET PO SCH (21:10)
[2019-05-25] MEDS: IBUPROFEN 800 MG TABLET PO SCH ×3 (06:12→22:01)
[2019-05-25 06:55] LABS: HEMATOCRIT 31.8 % (36.0-47.0); HEMOGLOBIN 10.8 g/dL (12.0-15.5); MEAN CORPUSCULAR HEMOGLOBIN 30.5 pg (27.0-33.4); MEAN CORPUSCULAR VOLUME 90 fl (80-97); PLATELET COUNT 130 10^3/uL (150-450); RED BLOOD COUNT 3.53 10^6/uL (3.72-5.28); RED CELL DISTRIBUTION WIDTH 14.9 % (11.5-14.0); WHITE BLOOD COUNT 13.5 10^3/uL (4.0-10.5)
[2019-05-25] MEDS: PRENATAL VITAMIN W DHA CAPSULE PO SCH (09:33)
[2019-05-25] MEDS: FAMOTIDINE 20 MG TABLET PO SCH ×2 (09:33→22:01)
[2019-05-25] MEDS: DOCUSATE SODIUM 100 MG CAPSULE PO SCH ×2 (09:33→17:17)
[2019-05-25] MEDS: FERROUS SULFATE 325 MG TABLET PO SCH ×2 (09:33→17:17)
[2019-05-25] MEDS: SENNOSIDES/DOCUSATE 8.6-50 MG 1 EACH TABLET PO SCH (09:33)
--- NOTE | 2019-05-25 11:14 | PDOC PROGRESS REPORT ---
Subjective-OB Progress Note for:: 05/25/19 Subjective: 28yo G7 now P3 s/p ppd1. Pt. ambulating, voiding and without difficulty. Pain well controlled by medication,bonding well with baby. No concerns today Physical Exam (OB) Vital Signs: Temp Pulse Resp BP Pulse Ox 97.6 F 83 14 107/65 98 05/25/19 07:49 05/25/19 07:49 05/25/19 07:49 05/25/19 07:49 05/25/19 07:49 Intake & Output 05/24/19 05/25/19 05/26/19 06:59 06:59 06:59 Weight 74.1 kg - General General Appearance: Appears well In distress: None - PIH/Pre-Eclampsia DTR's: 2 + Clonus: Negative Headache: Absent Epigastric Pain: No Visual Changes: No - Episiotomy/Laceration Site Condition: N/A - Lochia Lochia Amount: Small 10-25 ml Lochia Color: Rubra/Red - Abdomen Description: Round Fundal Description: Firm, Midline Fundal Height: u/u - u/2 - Respiratory Respiratory Status: No respiratory distress - Extremities Upper extremity: Normal inspection Lower extremities: Normal inspection - Neurological Cognition: Normal Orientation: AAOx4 - Psychological Associated symptoms: Normal affect, Normal mood Objective-Diagnostic Laboratory: 05/25/19 06:18 05/24/19 05/24/19 05/24/19 10:05 11:09 11:09 WBC 10.1 RBC 4.06 Hgb 12.1 Hct 36.5 MCV 90 MCH 29.9 MCHC 33.2 RDW 14.9 H Plt Count 132 L Urine Color DARK YELLOW Urine Appearance CLOUDY Urine pH 5.0 Ur Specific [place] 1.024 Urine Protein 30 H Urine Glucose (UA) NEGATIVE Urine Ketones TRACE H Urine Blood MODERATE H Urine Nitrite NEGATIVE Ur Leukocyte Esterase LARGE H Blood Type O POSITIVE Antibody Screen NEGATIVE 05/25/19 06:18 WBC 13.5 H RBC 3.53 L Hgb 10.8 L Hct 31.8 L MCV 90 MCH 30.5 MCHC 34.0 RDW 14.9 H Plt Count 130 L Urine Color Urine Appearance Urine pH Ur Specific [place] Urine Protein Urine Glucose (UA) Urine Ketones Urine Blood Urine Nitrite Ur Leukocyte Esterase Blood Type Antibody Screen Assessment and Plan(PN) - Assessment and Plan (1) Acute blood loss anemia Is this a current diagnosis for this admission?: Yes Plan: increase dietary iron and FeSO4 BID (2) Encounter for induction of labor Is this a current diagnosis for this admission?: Yes Plan: delivered (3) Normal vaginal delivery Is this a current diagnosis for this admission?: Yes Plan: routine pp care - Time Spent with Patient Time with patient: Less than 15 minutes Medications reviewed and adjusted accordingly: Yes - Disposition Anticipated Discharge: Home Within: within 24 hours
[2019-05-25] MEDS: ACETAMINOPHEN WITH CODEINE #3 TABLET PO PRN ×2 (13:36→19:52)
[2019-05-26] MEDS: IBUPROFEN 800 MG TABLET PO SCH (05:35)
[2019-05-26 08:06] VITALS: BP 106/53
[2019-05-26] MEDS: FERROUS SULFATE 325 MG TABLET PO SCH (09:32)
[2019-05-26] MEDS: SENNOSIDES/DOCUSATE 8.6-50 MG 1 EACH TABLET PO SCH (09:32)
[2019-05-26] MEDS: FAMOTIDINE 20 MG TABLET PO SCH (09:32)
[2019-05-26] MEDS: DOCUSATE SODIUM 100 MG CAPSULE PO SCH (09:32)
[2019-05-26] MEDS: PRENATAL VITAMIN W DHA CAPSULE PO SCH (09:32)
--- NOTE | 2019-05-26 10:08 | PDOC PROGRESS REPORT ---
Subjective-OB Progress Note for:: 05/26/19 Subjective: Ready to go home. Physical Exam (OB) Vital Signs: Temp Pulse Resp BP Pulse Ox 98.1 F 68 16 106/53 L 99 05/26/19 07:54 05/26/19 07:54 05/26/19 07:54 05/26/19 07:54 05/26/19 07:54 Intake & Output 05/25/19 05/26/19 05/27/19 06:59 06:59 06:59 Intake Total 480 Balance 480 Weight 74.1 kg - PIH/Pre-Eclampsia DTR's: 2 + Clonus: Negative Headache: Absent Epigastric Pain: No Visual Changes: No - Lochia Lochia Amount: Small 10-25 ml Lochia Color: Rubra/Red - Abdomen Description: Soft, Round Hernia Present: No Bowel Sounds: Normoactive Flatus Presence: Present Stool: Yes Fundal Description: Firm, Midline Fundal Height: u/u - u/2 Objective-Diagnostic Laboratory: 05/25/19 06:18 Assessment and Plan(PN) - Time Spent with Patient Medications reviewed and adjusted accordingly: Yes - Disposition Anticipated Discharge: Home
--- NOTE | 2019-05-26 10:15 | PDOC DISCHARGE SUMMARY ---
Impression - Admit/DC Date/PCP Admission Date/Primary Care Provider: 05/24/19 09:51 [place] [facility] Discharge Date: 05/26/19 - Discharge Diagnosis (1) Acute blood loss anemia Is this a current diagnosis for this admission?: Yes (2) Encounter for induction of labor Is this a current diagnosis for this admission?: Yes (3) Normal vaginal delivery Is this a current diagnosis for this admission?: Yes - Additional Information Resuscitation Status: Full Code Discharge Diet: Regular Discharge Activity: Activity As Tolerated, Balance Activity w/Rest, Pelvic Rest, Slowly Increase Activity, No tub bath [facility]: [facility] - Prescriptions: Ferrous Sulfate [Feosol 325 mg Tablet] 325 mg PO DAILY #30 tablet Ibuprofen [Motrin 800 mg Tablet] 800 mg PO Q8 #30 tablet Home Medications: Vit/Iron Fum/Folic AC [ Tablet] 1 tab PO DAILY 06/05/17 Valacyclovir HCl [Valtrex 500 mg Tablet] 2 tab PO PRN PRN 06/05/17 Ferrous Sulfate [Feosol 325 mg Tablet] 325 mg PO DAILY #30 tablet 05/26/19 Ibuprofen [Motrin 800 mg Tablet] 800 mg PO Q8 #30 tablet 05/26/19 HPI Gestational Age: 39.0 wks Reason(s) for Admission: Induction of Labor Procedures: Ultrasound Intrapartum Procedure(s): Spontaneous Vaginal Delivery Results Laboratory Results: WBC 13.5 10^3/uL (4.0-10.5) H 05/25/19 06:18 RBC 3.53 10^6/uL (3.72-5.28) L 05/25/19 06:18 Hgb 10.8 g/dL (12.0-15.5) L 05/25/19 06:18 Hct 31.8 % (36.0-47.0) L 05/25/19 06:18 MCV 90 fl (80-97) 05/25/19 06:18 MCH 30.5 pg (27.0-33.4) 05/25/19 06:18 MCHC 34.0 g/dL (32.0-36.0) 05/25/19 06:18 RDW 14.9 % (11.5-14.0) H 05/25/19 06:18 Plt Count 130 10^3/uL (150-450) L 05/25/19 06:18 Urine Color DARK YELLOW 05/24/19 10:05 Urine Appearance CLOUDY 05/24/19 10:05 Urine pH 5.0 (5.0-9.0) 05/24/19 10:05 Ur Specific [place] 1.024 05/24/19 10:05 Urine Protein 30 mg/dL (NEGATIVE) H 05/24/19 10:05 Urine Glucose (UA) NEGATIVE mg/dL (NEGATIVE) 05/24/19 10:05 Urine Ketones TRACE mg/dL (NEGATIVE) H 05/24/19 10:05 Urine Blood MODERATE (NEGATIVE) H 05/24/19 10:05 Urine Nitrite NEGATIVE (NEGATIVE) 05/24/19 10:05 Urine Bilirubin NEGATIVE (NEGATIVE) 05/24/19 10:05 Urine Urobilinogen 2.0 mg/dL (<2.0) H 05/24/19 10:05 Ur Leukocyte Esterase LARGE (NEGATIVE) H 05/24/19 10:05 Urine Ascorbic Acid NEGATIVE (NEGATIVE) 05/24/19 10:05 Urine Opiates Screen NEGATIVE 05/24/19 10:05 Urine Methadone Screen NEGATIVE 05/24/19 10:05 Ur Barbiturates Screen NEGATIVE 05/24/19 10:05 Ur Phencyclidine Scrn NEGATIVE 05/24/19 10:05 Ur Amphetamines Screen NEGATIVE 05/24/19 10:05 U Benzodiazepines Scrn NEGATIVE 05/24/19 10:05 Urine Cocaine Screen NEGATIVE 05/24/19 10:05 U Marijuana (THC) Screen NEGATIVE 05/24/19 10:05 RPR NONREACTIVE (NONREACTIVE) 05/24/19 11:09 Blood Type O POSITIVE 05/24/19 11:09 Antibody Screen NEGATIVE 05/24/19 11:09 Plan Plan of Treatment: Follow up at [facility] in 4 wks or prn. Pelvic rest x 4-6 wks. Time Spent: Less than 30 Minutes
== END 2019-05-26 13:55 | disposition home or self-care (01) | DRG 806 ==
LOC: LR 09:51 → 2S 18:55
PROVIDERS: ADMIT Obstetrics & Gynecology; ATTEND Obstetrics & Gynecology
PROC: 10E0XZZ Delivery of Products of Conception, External Approach (ICD-10-PCS; principal; 2019-05-24)
DX: O99.02 Anemia complicating childbirth (principal); D62 Acute posthemorrhagic anemia; Z37.0 Single live birth; Z3A.39 39 weeks gestation of pregnancy; Z91.013 Allergy to seafood
CPT/HCPCS: 36415; 80307; 81005; 85027; 86592; 86850; 86900; 86901; J2270; J2590; J3010; J3490

== ENCOUNTER 2020-01-19 00:56 | Emergency (ER) | payer OTHER, MEDICAID ==
[2020-01-19 01:03] VITALS: BP 111/61
[2020-01-19 02:28] LABS: ABSOLUTE EOSINOPHILS # (AUTO) 0.1 10^3/uL (0.0-0.6); ABSOLUTE LYMPHOCYTES (AUTO) 1.4 10^3/uL (0.5-4.7); ABSOLUTE MONOCYTES (AUTO) 0.7 10^3/uL (0.1-1.4); ABSOLUTE NEUT (AUTO) 6.6 10^3/uL (1.7-8.2); BASOPHILS % (AUTO) 0.3 % (0-2); EOSINOPHILS % (AUTO) 0.7 % (0-6); HEMATOCRIT 37.9 % (36.0-47.0); HEMOGLOBIN 12.5 g/dL (12.0-15.5); LYMPHOCYTES % (AUTO) 16.3 % (13-45); MEAN CORPUSCULAR HEMOGLOBIN 29.2 pg (27.0-33.4); MEAN CORPUSCULAR HGB CONC 32.9 g/dL (32.0-36.0); MEAN CORPUSCULAR VOLUME 89 fl (80-97); MONOCYTES % (AUTO) 8.2 % (3-13); PLATELET COUNT 168 10^3/uL (150-450); RED BLOOD COUNT 4.28 10^6/uL (3.72-5.28); RED CELL DISTRIBUTION WIDTH 15.8 % (11.5-14.0); SEGMENTED NEUTROPHILS % (AUTO) 74.5 % (42-78); TOTAL CELLS COUNTED % (AUTO) 100 %; WHITE BLOOD COUNT 8.8 10^3/uL (4.0-10.5)
[2020-01-19 02:32] LABS: APPEARANCE,URINE CLEAR; BILIRUBIN,URINE NEGATIVE (NEGATIVE); COLOR,URINE YELLOW; GLUCOSE, URINE NEGATIVE (NEGATIVE); KETONES,URINE NEGATIVE (NEGATIVE); LEUKOCYTE ESTERASE,URINE NEGATIVE (NEGATIVE); NITRITE,URINE NEGATIVE (NEGATIVE); PROTEIN,URINE NEGATIVE (NEGATIVE); UROBILINOGEN,URINE NEGATIVE mg/dL (<2.0)
[2020-01-19 02:47] LABS: ALBUMIN 3.8 g/dL (3.5-5.0); ALKALINE PHOSPHATASE 61 U/L (38-126); ANION GAP 6 (5-19); ASPARTATE AMINO TRANSFERASE 19 U/L (14-36); BILIRUBIN,TOTAL 0.3 mg/dL (0.2-1.3); BLOOD UREA NITROGEN 11 mg/dL (7-20); CALCIUM 9.2 mg/dL (8.4-10.2); CARBON DIOXIDE 26 mmol/L (22-30); CHLORIDE 103 mmol/L (98-107); GLUCOSE 92 mg/dL (75-110); POTASSIUM 4.3 mmol/L (3.6-5.0); TOTAL PROTEIN 6.9 g/dL (6.3-8.2)
== END 2020-01-19 04:45 | disposition left against medical advice (07) ==
LOC: ER 00:56
DX: Z53.21 Procedure and treatment not carried out due to patient leaving prior to being seen by health care provider (principal)
CPT/HCPCS: 36415; 80053; 81001; 83690; 84702; 85025

== ENCOUNTER 2020-02-18 13:52 | Outpatient (CLI) | payer OTHER, MEDICAID ==
[2020-02-18 14:20] LABS: APPEARANCE,URINE SLIGHTLY-CLOUDY; BILIRUBIN,URINE NEGATIVE (NEGATIVE); COLOR,URINE YELLOW; GLUCOSE, URINE NEGATIVE (NEGATIVE); KETONES,URINE NEGATIVE (NEGATIVE); LEUKOCYTE ESTERASE,URINE NEGATIVE (NEGATIVE); NITRITE,URINE NEGATIVE (NEGATIVE); PROTEIN,URINE NEGATIVE (NEGATIVE); URINE SPECIFIC GRAVITY 1.029
[2020-02-18 14:50] LABS: URINE AMPHETAMINES SCREEN NEGATIVE; URINE BARBITURATES SCREEN NEGATIVE; URINE BENZODIAZEPINES SCREEN NEGATIVE; URINE COCAINE SCREEN NEGATIVE; URINE MARIJUANA (THC) SCREEN NEGATIVE; URINE METHADONE SCREEN NEGATIVE; URINE PHENCYCLIDINE SCREEN NEGATIVE
== END 2020-02-18 16:02 | disposition home or self-care (01) ==
LOC: LC 13:52
PROVIDERS: ATTEND Obstetrics & Gynecology Gynecology
DX: O9A.212 Injury, poisoning and certain other consequences of external causes complicating pregnancy, second trimester (principal); O26.892 Other specified pregnancy related conditions, second trimester; O36.8120 Decreased fetal movements, second trimester, not applicable or unspecified; Z3A.22 22 weeks gestation of pregnancy
CPT/HCPCS: 80307; 81001

== ENCOUNTER 2020-04-09 20:33 | Outpatient (CLI) | payer OTHER, MEDICAID ==
[2020-04-09 21:16] LABS: APPEARANCE,URINE SLIGHTLY-CLOUDY; BILIRUBIN,URINE NEGATIVE (NEGATIVE); COLOR,URINE YELLOW; GLUCOSE, URINE NEGATIVE (NEGATIVE); KETONES,URINE NEGATIVE (NEGATIVE); LEUKOCYTE ESTERASE,URINE TRACE (NEGATIVE); NITRITE,URINE NEGATIVE (NEGATIVE); PROTEIN,URINE 30 mg/dL (NEGATIVE); URINE SPECIFIC GRAVITY 1.032
[2020-04-09] MEDS ORDERED: RINGERS SOLUTION,LACTATED 1,000 ML IV PRN (21:33)
[2020-04-09 21:38] LABS: URINE AMPHETAMINES SCREEN NEGATIVE; URINE BARBITURATES SCREEN NEGATIVE; URINE BENZODIAZEPINES SCREEN NEGATIVE; URINE COCAINE SCREEN NEGATIVE; URINE MARIJUANA (THC) SCREEN NEGATIVE; URINE METHADONE SCREEN NEGATIVE; URINE PHENCYCLIDINE SCREEN NEGATIVE
== END 2020-04-09 22:32 | disposition home or self-care (01) ==
LOC: LC 20:33
PROVIDERS: ATTEND Obstetrics & Gynecology
DX: O47.03 False labor before 37 completed weeks of gestation, third trimester (principal); Z3A.29 29 weeks gestation of pregnancy
CPT/HCPCS: 80307; 81001

== ENCOUNTER 2020-06-06 12:39 | Outpatient (CLI) | payer MEDICAID ==
[2020-06-06 13:24] LABS: APPEARANCE,URINE SLIGHTLY-CLOUDY; BILIRUBIN,URINE NEGATIVE (NEGATIVE); COLOR,URINE YELLOW; GLUCOSE, URINE NEGATIVE (NEGATIVE); KETONES,URINE NEGATIVE (NEGATIVE); LEUKOCYTE ESTERASE,URINE TRACE (NEGATIVE); NITRITE,URINE NEGATIVE (NEGATIVE); PROTEIN,URINE NEGATIVE (NEGATIVE); URINE SPECIFIC GRAVITY 1.023; UROBILINOGEN,URINE NEGATIVE mg/dL (<2.0)
[2020-06-06 13:37] LABS: URINE AMPHETAMINES SCREEN NEGATIVE; URINE BARBITURATES SCREEN NEGATIVE; URINE BENZODIAZEPINES SCREEN NEGATIVE; URINE COCAINE SCREEN NEGATIVE; URINE MARIJUANA (THC) SCREEN NEGATIVE; URINE METHADONE SCREEN NEGATIVE; URINE PHENCYCLIDINE SCREEN NEGATIVE
--- NOTE | 2020-06-06 14:23 | Non Stress Test Report ---
Non Stress Test Datetime Report Generated by CPN: 06/06/2020 14:23 DEMOGRAPHIC EGA NST: 38.1 INDICATION Indication for Study (NST) Other: LC - IUP at 38.1 VITAL SIGNS Temperature - NST: 98.3 Pulse - NST: 77 RESP - NST: 15 NBPSYS NST: 119 NBPDIA NST: 68 MONITORING Monitor Explained: Monitor Explained; Test Explained; Patient Verbalized Understanding Time on Monitor: 06/06/2020 13:00 Time off Monitor: 06/06/2020 14:18 NST Duration: 78 NST INTERVENTIONS NST Interventions: None Physician Notified NST: C. Paulino, CNM BABY A: [id number] BABY A Movement : Present Contraction Frequency : 4-6 FHR Baseline : 135 Accelerations : 15X15 Decelerations : None Variability : Moderate 6-25bpm NST Review: Meets Criteria for Reactive NST NST Review and Verified By : [place] Naik Results: Reactive NST REPORT Report Trigger: Send Report
== END 2020-06-06 14:27 | disposition home or self-care (01) ==
LOC: LC 12:39
PROVIDERS: ATTEND Obstetrics & Gynecology
DX: O47.1 False labor at or after 37 completed weeks of gestation (principal); Z3A.38 38 weeks gestation of pregnancy
CPT/HCPCS: 59025; 80307; 81005; 94760

== ENCOUNTER 2020-06-06 20:50 | Outpatient (CLI) | payer MEDICAID ==
[2020-06-06 21:26] LABS: APPEARANCE,URINE SLIGHTLY-CLOUDY; BILIRUBIN,URINE NEGATIVE (NEGATIVE); COLOR,URINE YELLOW; GLUCOSE, URINE NEGATIVE (NEGATIVE); KETONES,URINE TRACE mg/dL (NEGATIVE); LEUKOCYTE ESTERASE,URINE SMALL (NEGATIVE); NITRITE,URINE NEGATIVE (NEGATIVE); PROTEIN,URINE 30 mg/dL (NEGATIVE); URINE SPECIFIC GRAVITY 1.034
[2020-06-06 21:43] LABS: URINE AMPHETAMINES SCREEN NEGATIVE; URINE BARBITURATES SCREEN NEGATIVE; URINE BENZODIAZEPINES SCREEN NEGATIVE; URINE COCAINE SCREEN NEGATIVE; URINE MARIJUANA (THC) SCREEN NEGATIVE; URINE METHADONE SCREEN NEGATIVE; URINE PHENCYCLIDINE SCREEN NEGATIVE
--- NOTE | 2020-06-06 23:00 | Non Stress Test Report ---
Non Stress Test Datetime Report Generated by CPN: 06/06/2020 22:59 DEMOGRAPHIC EGA NST: 38.1 INDICATION Indication for Study (NST) Other: labor check VITAL SIGNS Temperature - NST: 98.7 Pulse - NST: 66 RESP - NST: 16 NBPSYS NST: 117 NBPDIA NST: 66 MONITORING Monitor Explained: Monitor Explained; Test Explained; Patient Verbalized Understanding Time on Monitor: 06/06/2020 21:50 Time off Monitor: 06/06/2020 22:25 NST Duration: 35 NST INTERVENTIONS NST Interventions: PO Hydration Physician Notified NST: Dr. Lopez BABY A: [id number] BABY A Movement : Present Contraction Frequency : occasional FHR Baseline : 135-140 Accelerations : 15X15 Decelerations : None Variability : Moderate 6-25bpm NST Review: Meets Criteria for Reactive NST NST Review and Verified By : Ghulam Oro RN NST Results: Reactive NST REPORT Report Trigger: Send Report
== END 2020-06-06 22:45 | disposition home or self-care (01) ==
LOC: LC 20:50
PROVIDERS: ATTEND Obstetrics & Gynecology
DX: O47.1 False labor at or after 37 completed weeks of gestation (principal); Z3A.38 38 weeks gestation of pregnancy; Z91.013 Allergy to seafood
CPT/HCPCS: 80307; 81005

== ENCOUNTER 2020-06-07 09:59 | Outpatient (CLI) | payer MEDICAID ==
--- NOTE | 2020-06-07 10:51 | Non Stress Test Report ---
Non Stress Test Datetime Report Generated by CPN: 06/07/2020 10:51 DEMOGRAPHIC Test Number: 3 EGA NST: 38.2 VITAL SIGNS Temperature - NST: 98.6 Pulse - NST: 73 RESP - NST: 17 NBPSYS NST: 130 NBPDIA NST: 60 MONITORING Monitor Explained: Monitor Explained; Test Explained; Patient Verbalized Understanding Time on Monitor: 06/07/2020 10:06 Time off Monitor: 06/07/2020 10:28 NST Duration: 22 NST INTERVENTIONS NST Interventions: PO Hydration; Reposition Patient Physician Notified NST: Dr Murdock BABY A: [id number] BABY A Movement : Present Contraction Frequency : none FHR Baseline : 140 Accelerations : 15X15 Decelerations : None Variability : Moderate 6-25bpm NST Review: Meets Criteria for Reactive NST NST Review and Verified By : [place] Naik Results: Reactive NST REPORT Report Trigger: Send Report
== END 2020-06-07 10:36 | disposition home or self-care (01) ==
LOC: LC 09:59
PROVIDERS: ATTEND Obstetrics & Gynecology
DX: O47.1 False labor at or after 37 completed weeks of gestation (principal); O36.8130 Decreased fetal movements, third trimester, not applicable or unspecified; Z3A.38 38 weeks gestation of pregnancy; Z91.013 Allergy to seafood
CPT/HCPCS: 59025; 94760

== ENCOUNTER → 2020-06-08 | Outpatient (CLI) | payer MEDICAID ==
[~2020-06-08] MED LIST changes: -BETAMET ACET/BETAMET NA INJ 6 MG/1 ML ONE; +CEFAZOLIN 2 GM/D5W RTU 2 GM/50 ML RTUPB IV PRN; +RINGERS SOLUTION,LACTATED 1,000 ML IV PRN
[2020-06-08 11:45] LABS: ABSOLUTE EOSINOPHILS # (AUTO) 0.1 10^3/uL (0.0-0.6); ABSOLUTE LYMPHOCYTES (AUTO) 1.4 10^3/uL (0.5-4.7); ABSOLUTE MONOCYTES (AUTO) 0.9 10^3/uL (0.1-1.4); ABSOLUTE NEUT (AUTO) 6.3 10^3/uL (1.7-8.2); BASOPHILS % (AUTO) 0.4 % (0-2); EOSINOPHILS % (AUTO) 0.7 % (0-6); HEMATOCRIT 33.9 % (36.0-47.0); HEMOGLOBIN 11.2 g/dL (12.0-15.5); LYMPHOCYTES % (AUTO) 16.2 % (13-45); MEAN CORPUSCULAR HEMOGLOBIN 27.8 pg (27.0-33.4); MEAN CORPUSCULAR HGB CONC 33.1 g/dL (32.0-36.0); MEAN CORPUSCULAR VOLUME 84 fl (80-97); PLATELET COUNT 143 10^3/uL (150-450); RED BLOOD COUNT 4.05 10^6/uL (3.72-5.28); RED CELL DISTRIBUTION WIDTH 16.6 % (11.5-14.0); SEGMENTED NEUTROPHILS % (AUTO) 72.7 % (42-78); TOTAL CELLS COUNTED % (AUTO) 100 %; WHITE BLOOD COUNT 8.7 10^3/uL (4.0-10.5)
[2020-06-08 11:51] LABS: APPEARANCE,URINE SLIGHTLY-CLOUDY; BILIRUBIN,URINE NEGATIVE (NEGATIVE); COLOR,URINE YELLOW; GLUCOSE, URINE NEGATIVE (NEGATIVE); KETONES,URINE NEGATIVE (NEGATIVE); LEUKOCYTE ESTERASE,URINE TRACE (NEGATIVE); NITRITE,URINE NEGATIVE (NEGATIVE); PROTEIN,URINE NEGATIVE (NEGATIVE); URINE SPECIFIC GRAVITY 1.025
[2020-06-08 12:16] LABS: URINE AMPHETAMINES SCREEN NEGATIVE; URINE BARBITURATES SCREEN NEGATIVE; URINE BENZODIAZEPINES SCREEN NEGATIVE; URINE COCAINE SCREEN NEGATIVE; URINE MARIJUANA (THC) SCREEN NEGATIVE; URINE METHADONE SCREEN NEGATIVE; URINE PHENCYCLIDINE SCREEN NEGATIVE
== END ==
LOC: OD 10:39 → EDSTATUS 06-13 07:45
PROVIDERS: ATTEND Obstetrics & Gynecology Gynecology
DX: Z01.812 Encounter for preprocedural laboratory examination (principal); Z20.828 Contact with and (suspected) exposure to other viral communicable diseases
CPT/HCPCS: 85025; 87635; 81001; 80307; C9803

== ENCOUNTER 2020-06-11 22:11 | Outpatient (CLI) | payer MEDICAID ==
[2020-06-11 22:55] LABS: APPEARANCE,URINE CLEAR; BILIRUBIN,URINE NEGATIVE (NEGATIVE); COLOR,URINE YELLOW; GLUCOSE, URINE NEGATIVE (NEGATIVE); KETONES,URINE NEGATIVE (NEGATIVE); LEUKOCYTE ESTERASE,URINE TRACE (NEGATIVE); NITRITE,URINE NEGATIVE (NEGATIVE); PROTEIN,URINE NEGATIVE (NEGATIVE); URINE SPECIFIC GRAVITY 1.008; UROBILINOGEN,URINE NEGATIVE mg/dL (<2.0)
[2020-06-11 23:10] LABS: URINE AMPHETAMINES SCREEN NEGATIVE; URINE BARBITURATES SCREEN NEGATIVE; URINE BENZODIAZEPINES SCREEN NEGATIVE; URINE COCAINE SCREEN NEGATIVE; URINE MARIJUANA (THC) SCREEN NEGATIVE; URINE METHADONE SCREEN NEGATIVE; URINE PHENCYCLIDINE SCREEN NEGATIVE
[2020-06-11] MEDS ORDERED: HYDROXYZINE PAMOATE 50 MG CAPSULE PO ONE (23:49)
[2020-06-11] MEDS ORDERED: HYDROXYZINE PAMOATE 50 MG CAPSULE ONE (23:52)
--- NOTE | 2020-06-12 00:13 | Non Stress Test Report ---
Non Stress Test Datetime Report Generated by CPN: 06/12/2020 00:13 DEMOGRAPHIC EGA NST: 38.6 EGA NST: 38.6 INDICATION Indication for Study (NST) Other: labor check Indication for Study (NST) Other: LC- ctx MONITORING Monitor Explained: Monitor Explained; Test Explained; Patient Verbalized Understanding Monitor Explained: Monitor Explained; Test Explained; Patient Verbalized Understanding Time on Monitor: 06/11/2020 23:34 Time on Monitor: 06/11/2020 23:33 Time off Monitor: 06/11/2020 23:55 Time off Monitor: 06/11/2020 23:53 NST Duration: 21 NST Duration: 20 NST INTERVENTIONS NST Interventions: None NST Interventions: Reposition Patient Physician Notified NST: Dr. Lopez BABY A: [id number] BABY A Movement : Present Movement : Present Contraction Frequency : occasional Contraction Frequency : 8-10 FHR Baseline : 130 FHR Baseline : 130 Accelerations : 15X15 Accelerations : 15X15 Decelerations : None Decelerations : None Variability : Moderate 6-25bpm Variability : Moderate 6-25bpm NST Review: Meets Criteria for Reactive NST NST Review: Meets Criteria for Reactive NST NST Review and Verified By : Jessica Jansen RN NST Results: Reactive NST Results: Reactive NST REPORT Report Trigger: Send Report
== END 2020-06-12 00:01 | disposition home or self-care (01) ==
LOC: LC 22:11
PROVIDERS: ATTEND Obstetrics & Gynecology
DX: Z34.93 Encounter for supervision of normal pregnancy, unspecified, third trimester (principal)
CPT/HCPCS: 59025; 81005; 80307; J3490

== ENCOUNTER 2020-06-12 09:15 | Inpatient (IN) | payer MEDICAID ==
[2020-06-12] MEDS ORDERED: OXYTOCIN/0.9 % SODIUM CHLORIDE 0 UNIT/0 ML RTUINJ ONE ×2 (09:55→10:15)
[2020-06-12] MEDS ORDERED: OXYTOCIN 10 UNIT/ML VIAL ONE ×3 (09:55→10:38)
[2020-06-12] MEDS ORDERED: MISOPROSTOL 0.2 MG TABLET ONE ×2 (09:55→10:15)
[2020-06-12] MEDS ORDERED: LIDOCAINE 1% INJ-PF (10 MG/ML) 30 ML SDV ONE ×2 (09:55→10:15)
[2020-06-12] MEDS ORDERED: RINGERS SOLUTION,LACTATED 1,000 ML IV ONE (10:02)
[2020-06-12 10:06] LABS: APPEARANCE,URINE SLIGHTLY-CLOUDY; BILIRUBIN,URINE NEGATIVE (NEGATIVE); COLOR,URINE YELLOW; GLUCOSE, URINE NEGATIVE (NEGATIVE); KETONES,URINE NEGATIVE (NEGATIVE); LEUKOCYTE ESTERASE,URINE SMALL (NEGATIVE); NITRITE,URINE NEGATIVE (NEGATIVE); PROTEIN,URINE NEGATIVE (NEGATIVE); URINE SPECIFIC GRAVITY 1.018; UROBILINOGEN,URINE NEGATIVE mg/dL (<2.0)
[2020-06-12] MEDS ORDERED: CEFAZOLIN 2 GM/D5W RTU 2 GM/50 ML RTUPB IV ONE (10:15)
[2020-06-12] MEDS ORDERED: CITRIC ACID/SODIUM CITRATE ORAL SOLN 15 ML UDCUP ONE (10:15)
[2020-06-12] MEDS ORDERED: RINGERS SOLUTION,LACTATED 1,000 ML IV PRN ×2 (10:17→11:46)
[2020-06-12] MEDS ORDERED: CEFAZOLIN 1 GM/D5W RTU 1 GM/50 ML RTUPB IV PRN (10:18)
[2020-06-12 10:22] LABS: URINE AMPHETAMINES SCREEN NEGATIVE; URINE BARBITURATES SCREEN NEGATIVE; URINE BENZODIAZEPINES SCREEN NEGATIVE; URINE COCAINE SCREEN NEGATIVE; URINE MARIJUANA (THC) SCREEN NEGATIVE; URINE METHADONE SCREEN NEGATIVE; URINE PHENCYCLIDINE SCREEN NEGATIVE
[2020-06-12] MEDS ORDERED: FENTANYL CITRATE INJ/PF 100 MCG/2 ML AMPUL ONE ×3 (10:24→10:38)
--- NOTE | 2020-06-12 10:24 | Admission Physical ---
Datetime Report Generated by CPN: 06/12/2020 10:23 CURRENT ADMISSION Hx Assessment: The History has been Reviewed and is Current Chief Complaint: Uterine Contractions Chief Complaint Other: at 39.0 weeks EGA in active labor. 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 Now she is healed and has been on valtrex suppression(Valtrex 1,000mg daily). She has no lesions presently but starting having a prodromal sensation in left labia last night. Admit Impression : Term, Intrauterine ; Active Labor; Intact Membranes Admit Plan: Admit to Unit; Initiate Section Protocol ALLERGIES Medication Allergies: No Medication Allergies: shrimp (06/12/2020) Latex: No Latex Allergies Food Allergies: Shrimp Environmental Allergies: None OBSTETRICAL HISTORY EDC: 06/19/2020 00:00 : 8 Para: 3 Term: 3 SAB: 4 Ectopic: 0 Livin Cesareans: 0 Multiple Births: 0 Gestational Diabetes: No Rh Sensitization: No Incompetent Cervix: No CHLOE: No Infertility: No ART Treatment: No Uterine Anomaly: No IUGR: No Hx Previous C/S: No Macrosomia: Yes Hx Loss/Stillborn: Yes PIH: No Hx : No Placenta Previa/Abruption: No Depression/PP Depression: No PTL/PROM: Yes Post Hemorrhage: No Current Procedures: Ultrasound Obstetrical History Comments: G1- 2009, [facility] G2- 2010, SAB, 18 weeks G3- 2012, D_C G4- 2014, G5- 2017, G6- 2017, [facility] G2017, [facility] G2018, D_C G9- 2018, G10- Current SEE RECORDS Alcohol: No Marijuana : No Cocaine: No Other Illicit Drugs: No Cigarettes: Never Smoker. [id number] MEDICAL HISTORY Diabetes: No Blood Transfusion: No Pulmonary Disease (Asthma, TB): No Breast Disease: No Hypertension: No Alcoholic Counselor Surgery: Yes Heart Disease: No Hosp/Surgery: Yes Autoimmune Disorder: No Anesthetic Complications: No Kidney Disease: No Abnormal Pap Smear: No Neuro/Epilepsy: No Psychiatric Disorders: No Other Medical Diseases: No Hepatitis/Liver Disease: No Significant Family History: No Varicosities/Phlebitis: No Trauma/Violence : No Thyroid Dysfunction: No Medical History Comments: D_C x2 INFECTIOUS HISTORY Gonorrhea: No Genital Herpes: Yes Chlamydia: No Tuberculosis: No Syphilis: No Hepatitis: No HIV/AIDS Exposure: No Rash or Viral Illness: No HPV: No PHYSICAL EXAM General: Normal HEENT: Normal Neurologic: Normal Thyroid: Normal Heart: Normal Lungs: Normal Breast: Normal Back: Normal Abdomen: Normal Genitourinary Exam: Normal Extremities: Normal DTRs: Normal Pelvic Type: Adequate Physical Exam Comments: SSE done and no lesions seen anywhere on exam. Close attention to left labia and vulva and no lesions seen Vital Signs: Reviewed; Within Normal Limits VAGINAL EXAM Dilatation: 8 Effacement: 100 Station: 1 MEMBRANES Pooling: Negative Membranes: Intact FETUS A EGA: 39.0 Monitoring: External US FHR- Baseline: 135 Variability: Moderate 6-25bpm Accelerations: 15X15 FHR Category: Category I Presentation: Vertex Admit Comment: 29 yo at 39.0 wks EGA in active labor. complicated by history of HSV with outbreak 4 weeks ago. Lesions have healed but patient reports prodromal sensation in left labia -Admit to LDR -NPO and IVFs. LR at 150 cc/hr after 1 liter bolus -SSE showed no lesions and cervix is 8 cm, low station +1. Close assessment of left labia and no lesions. -Abdominal prep -2 gms Ancef IV prior to OR -GBS negative -Plan for Primary section due to prodromal symptoms PLANS FOR LABOR AND DELIVERY Labor and Delivery: None Pain Management: Natural Feeding Preference: Breast Circumcision: N/A INFORMED CONSENT Informed Consent Obtained: Vaginal Delivery; Section Delivery; Risks, Benefits and Alternatives Discussed Signature: with User ID: Maria Victoria : with User ID: Maria Victoria
[2020-06-12 10:29] LABS: HEMATOCRIT 36.9 % (36.0-47.0); HEMOGLOBIN 11.9 g/dL (12.0-15.5); MEAN CORPUSCULAR HGB CONC 32.3 g/dL (32.0-36.0); MEAN CORPUSCULAR VOLUME 84 fl (80-97); PLATELET COUNT 150 10^3/uL (150-450); RED BLOOD COUNT 4.42 10^6/uL (3.72-5.28); RED CELL DISTRIBUTION WIDTH 16.8 % (11.5-14.0); WHITE BLOOD COUNT 9.4 10^3/uL (4.0-10.5)
[2020-06-12] MEDS ORDERED: CEFAZOLIN SODIUM 1 GM in DEXTROSE 5%-WATER 50 ML IV PRN (10:30)
[2020-06-12] MEDS ORDERED: KETOROLAC TROMETHAMINE INJ/PF 30 MG/1 ML SDV ONE (10:38)
[2020-06-12] MEDS ORDERED: OXYTOCIN/0.9 % SODIUM CHLORIDE 30 UNIT/500 ML RTUINJ ONE (10:38)
[2020-06-12] MEDS ORDERED: ONDANSETRON HCL INJ/PF 4 MG/2 ML SDV ONE (10:38)
[2020-06-12] MEDS ORDERED: PHENYLEPHRINE HCL INJ/PF 10 MG/1 ML SDV ONE (10:38)
[2020-06-12] MEDS ORDERED: MIDAZOLAM 2 MG/2 ML INJ ONE (10:38)
[2020-06-12] MEDS ORDERED: EPHEDRINE SULFATE INJ 50 MG/1 ML AMPULE ONE (10:38)
[2020-06-12] MEDS ORDERED: ACETAMINOPHEN 1,000 MG/100 ML RTUPB IV ONE (10:38)
[2020-06-12] MEDS ORDERED: SIMETHICONE 80 MG TAB.CHEW PO PRN (11:46)
[2020-06-12] MEDS ORDERED: DIPH/PERTUSS(ACELL)/TETANUS VAC/PF 0.5 ML SYR (>=10YO) IM PRN (11:46)
[2020-06-12] MEDS ORDERED: ACETAMINOPHEN 325 MG TABLET PO PRN (11:46)
[2020-06-12] MEDS ORDERED: ACETAMINOPHEN 1,000 MG/100 ML RTUPB IV PRN (11:46)
[2020-06-12] MEDS ORDERED: OXYCODONE-ACETAMINOPHEN 5-325 MG TABLET PO PRN (11:46)
[2020-06-12] MEDS ORDERED: OXYTOCIN/0.9 % SODIUM CHLORIDE 30 UNIT/500 ML RTUINJ IV PRN (11:46)
[2020-06-12] MEDS ORDERED: PROMETHAZINE HCL INJ 25 MG/1 ML VIAL IV PRN (11:46)
[2020-06-12] MEDS ORDERED: MEASLES,MUMPS&RUBELLA VACC/PF 0.5 ML VIAL SUBCUT PRN (11:46)
--- NOTE | 2020-06-12 11:57 | Operative Report ---
Operative Report DATE OF SURGERY: 06/12/20 PREOPERATIVE DIAGNOSIS: Intrauterine at 39.0 weeks EGA. Herpes simpl ex virus history with current prodromal symptoms POSTOPERATIVE DIAGNOSIS: same as above OPERATION: Primary section SURGEON: BROWN ARANGO ANESTHESIA: Spinal TISSUE REMOVED OR ALTERED: Placenta COMPLICATIONS: none ESTIMATED BLOOD LOSS: 700cc INTRAOPERATIVE FINDINGS: normal appearing utuers, bilateral fallopian tubes and ovaries PROCEDURE: IV fluids: per anesthesia record Urinary output: 250 cc Findings: Normal-appearing uterus bilateral fallopian tubes and ovaries. Placenta grossly normal. Viable female with Apgars of 9 and 9, at 1 and 5 minutes respectively. Position: To recovery room in stable condition Description of procedure: The patient was taken to the operating room and spinal anesthesia was administered and found to be adequate. She was then placed on the OR table in the supine position with a slight leftward tilt. Patient was prepped and draped in usual sterile fashion. Ancef 2 gms was given IV prior to the procedure for infection prophylaxis. Timeout was taken. A Pfannenstiel skin incision was then made approximately 3 cm above the pubic symphysis and carried down to level the rectus fascia. The rectus fascia was then nicked in the midline with a scalpel and the fascial incision was extended laterally with use of curved Rice scissors. The rectus fascia was then grasped with 2 Kocker clamps elevated and the underlying rectus muscle was dissected off both bluntly and sharply. Any bleeding controlled with cautery. The rectus muscles were then split in the midline and the peritoneum was entered. The peritoneal incision was then extended by manually stretching the peritoneum. The bladder blade was positioned. The bladder was noted to be out of harm's way. A scalpel was then used in the lower uterine for the hysterotomy, slowly until amniotomy was obtained a large amount of fluid was noted. The uterine incision was then manually stretched. The was noted to be in vertex postion -deep in the pelvis. Using a hand deep in pelvis and a hand from below with an reproductive healthcare assistant, the head was elevated and brought to the hysterotomy incision. The head then delivered with minmal difficulty. The shoulders and the rest of the body followed immediately. The cord was cut clamped and the was handed off to the nurse awaiting. Infant was crying prior to hand off. The placenta was manually delivered. Using a lap gauze the uterus was cleared of all clots and debris. The uterus was then exteriorized and a bladder blade was repositioned. The uterine incision was then closed with 0 Chromic suture in a running locked fashion. A second layer of the same suture was used in a running locked imbricated fashion. The uterine incision was inspected and noted to be hemostatic. Retractor was removed. The posterior aspect of the uterus was then inspected and anatomy was seen as above. The uterus was returned to its normal anatomic position within the abdominal cavity. Warm saline irrigation was used to clear all clots and debris from the abdomen. The uterine incision was inspected once more and noted to remain hemostatic. The bladder blade was removed and the peritoneum was closed with 2-0 chromic in a running fashion. The rectus muscles were then reapproximated and the rectus fascia was closed with a #0 looped PDS in a running fashion. The subcutaneous tissue was then inspected and any bleeding was controlled with Bovie electrocautery. The subcutaneous tissue was then closed with 2-0 Plain Gut suture in a running fashion. The skin was then closed with 4-0 Monocryl in a running subcuticular fashion. The skin incision was then clean dried and Dermabond was applied over the skin incision. All instrument sponge and needle counts were correct x3 for the procedure the patient tolerated the procedure well. She will proceed to recovery room in stable condition
--- NOTE | 2020-06-12 12:00 | PDOC DELIVERY SUMMARY ---
Delivery Summary - Maternal Hx : VIII Hx Para: III Hx # Term Pregnancies: 3 Hx # Pregnancies: 0 Hx Total # of Abortions (Sponateous & Elective): 4 Number of Living Children: 3 INNA: 06/19/20 Gestational Age: 39.0 Risk Factors: Other - HSV OUTBREAK 4 WKS AGO & CURRENT PRODROMAL SYMPTONS - Delivery Presentation: Vertex Heart Rate Monitoring: Externally Uterine Contraction Monitoring: External Support Person Present: Yes Location: OR : Primary Placenta: Within Normal Limits Placenta Description: GROSSLY NORMAL Number of Vessels (Cord): 3 Estimated Blood Loss: 700 CC - Medications Type of Anesthesia:: Spinal - Delivery Personnel RN: BRYNN RUSS MD: BROWN ARANGO
[2020-06-12] MEDS ORDERED: KETOROLAC TROMETHAMINE INJ/PF 30 MG/1 ML SDV IV SCH (12:30)
--- NOTE | 2020-06-12 12:34 | Warning Signs in Babies ---
VOD Warning Signs Datetime Report Generated by [facility]: 06/12/2020 12:33 VOD#608 -Warning Signs in Babies: Needs to be viewed. (02/18/2020 13:54:Mary Benton RN)
[2020-06-12] MEDS ORDERED: DIPHENHYDRAMINE HCL 50 MG/ML VIAL IV ONE (13:18)
[2020-06-12] MEDS ORDERED: DIPHENHYDRAMINE HCL 50 MG/ML VIAL ONE (13:19)
--- NOTE | 2020-06-12 13:43 | Delivery Summary ---
Del Sum A-C Datetime Report Generated by CPN: 06/12/2020 13:43 DELIVERY PERSONNEL DELIVERY PERSONNEL: [id number] Delivery Doctor:: Letty Murdock MD FOREIGN EXCHANGE STUDENT COORDINATOR:: Luisito Mabry, FOREIGN EXCHANGE STUDENT COORDINATOR Supervisor Carbon Paper Coating:: Mary Benton RN Neonatal Nurse Practitioner:: BENJAMIN Pleitez Nursery Nurse:: Mili Winter RN Nursery Nurse:: Hoda Johns RN Production Service Manager/ROAD MENDER: Katerina Raya CST Production Service Manager/ROAD MENDER: Emmima Galvan, ACUPRESSURIST MATERNAL INFORMATION Delivery Anesthesia: Spinal Medications After Delivery: Pitocin Bolus-Please Comment; Pitocin 30 Units in 500ml NS/D5W Meds After Delivery Comment: 30 units in 500mLs NS open bolus; 2nd 30 units in 500mLs NS at 250mLs Delivery QBL: 305 Maternal Complications: Other Complication Details: sx of prodomal HSV outbreak LABOR SUMMARY EDC: 06/19/2020 00:00 No. Babies in Womb: 1 Attempted: No Labor Anesthesia: None LABOR INFORMATION Reason for Induction: Not Applicable Onset of Labor: 06/12/2020 07:30 Oxytocin: N/A Group B Beta Strep: Negative Steroids Given: None Reason Steroids Not Administered: Not Applicable MEMBRANES Membranes Rupture Method: Artificial Rupture of Membranes: 06/12/2020 11:11 Length of Rupture (hr): 0.00 Amniotic Fluid Color: Clear Amniotic Fluid Amount: Small Amniotic Fluid Odor: Normal STAGES OF LABOR Stage 3 hr: 0 Stage 3 min: 2 Total Time in Labor hr: 3 Total Time in Labor min: 43 VAGINAL DELIVERY Episiotomy: None Laceration #1: None Laceration Extension #1: N/A Laceration Repair: Not Applicable Sponge Count Correct: N/A Sharps Count Correct: N/A CSECTION DELIVERY Primary Indication: Active Genital Herpes Other Primary Indication: prodromal sx CSection Urgency: Non-Scheduled CSection Incidence: Primary Labor: Labor Elective: Elective CSection Incision: Lower Uterine Transverse BABY A INFORMATION Infant Delivery Date/Time: 06/12/2020 11:11 Method of Delivery: Nurse Controlled Delivery: No Born in Route : No : N/A Forceps: N/A Vacuum Extraction: N/A Shoulder Dystocia : No PRESENTATION/POSITION BABY A Presentation: Cephalic Cephalic Presentation: Vertex Breech Presentation: N/A PLACENTA INFORMATION BABY A Placenta Delivery Time : 06/12/2020 11:13 Placenta Method of Delivery: Manual Removal Placenta Status: Delivered SCORES BABY A Heart Rate 1 min: >100 bpm Resp Effort 1 min: Good Cry Reflex Irritability 1 min: Cough or Sneeze or Pulls Away Muscle Tone 1 min: Active Motion Color 1 min: Blue/Pale Resuscitation Effort 1 min: Tactile Stimulation SCORE 1 MIN: 8 Heart Rate 5 min: >100 bpm Resp Effort 5 min: Good Cry Reflex Irritability 5 min: Cough or Sneeze or Pulls Away Muscle Tone 5 min: Active Motion Color 5 min: Body [place], Extremities Blue Resuscitation Effort 5 min: Tactile Stimulation SCORE 5 MIN: 9 INFANT INFORMATION BABY A Gestational Age at Delivery: 39.0 Gestational Status: Full Term- 39- 40.6 Weeks Infant Outcome : Liveborn Condition : Stable Infant Sex: Female IDENTIFICATION BABY A Verification Date/Time: 06/12/2020 11:14 ID Band Number: [id number] Mother's Name Verified: Yes Infant RN Verifying Infant: Ghulam Benton, RN Additional Verifying Personnel: AMandeep Johns, RN WEIGHT/LENGTH BABY A Birthweight (gm): 3232 Weight (lb): 7 Infant Weight (oz): 2 Length (in): 20.00 Length (cm): 50.80 CORD INFORMATION BABY A No. Cord Vessels: 3 Nuchal Cord : N/A Cord Blood Taken: Yes-For Storage (Mom's Blood type +) BABY B INFORMATION : N/A
--- NOTE | 2020-06-12 13:43 | Birth Certificate Data ---
Cert Data Datetime Report Generated by CPN: 06/12/2020 13:43 CERTIFICATE DATA Delivery Provider: Letty Murdock MD (06/12/2020 11:35:Mary Benton RN) 47a. Care: Yes (02/18/2020 13:54:Liz Montelongo RN) 47b. Date of First Visit: 12/15/2019 00:00 (02/18/2020 13:54:Liliana Jansen RN) 47c. Date of Last Visit: 06/11/2020 00:00 (02/18/2020 13:54:Angelina Cerda RN) 47d. Number of Visits: 12 (02/18/2020 13:54:Angelina Cerda RN) 48a. Number of Prev Live Births: 3 (02/18/2020 13:54:Harvinder Browne RN) 48b. Now Livin (02/18/2020 13:54:Harvinder Browne RN) 48c. Live Births Now : 0 (02/18/2020 13:54:QS system process) 48d. Date of Last Live : 05/24/2019 00:00 (02/18/2020 13:54:Liliana Jansen RN) 48e. Losses: 4 (02/18/2020 13:54:Liliana Jansen RN) 48f. Date of Last Preg Loss: 07/26/2018 00:00 (02/18/2020 13:54:Liliana Jansen RN) RISK FACTORS IN THIS 49a. Diabetes: No (02/18/2020 13:54:Harvinder Browne RN) 49b. Hypertension: No (02/18/2020 13:54:Harvinder Browne RN) 49d. Stillborns: Yes (02/18/2020 13:54:Harvinder Browne RN) 49d. IUGR: No (02/18/2020 13:54:Harvinder Browne RN) 49e. Infertility Treatment: No (02/18/2020 13:54:Harvinder Brwone RN) 49f. Previous Cesareans: 0 (02/18/2020 13:54:Harvinder Browne RN) Mother's Height 50b. Height Inches: 66 (06/12/2020 09:54:QS system process) Mother's Weight 51b. Weight at Delivery (lbs): 169 (06/12/2020 09:54:QS system process) 52. Dt Last Normal Menses Began: 09/03/2019 00:00 (02/18/2020 13:54:Angelina Cerda RN) Infections Present/Treated 53a. Gonorrhea: No (02/18/2020 13:54:Harvinder Browne RN) Results this Hospital Visit : Negative (02/18/2020 13:54:Jenny Pretty RN) 53b. Syphilis: No (02/18/2020 13:54:Harvinder Browne RN) 53c. Chlamydia: No (02/18/2020 13:54:Harvinder Browne RN) Results this Hospital Visit: Negative (02/18/2020 13:54:Jenny Pretty RN) 53d. Hepatitis B: No (02/18/2020 13:54:Harvinder Browne RN) Results this Hospital Visit: Negative (02/18/2020 13:54:Harvinder Browne RN) 53h. Mother Tested for HBsAG: Yes (02/18/2020 13:54:Angelina Cerda RN) 53i. Date Tested: 10/05/2018 00:00 (02/18/2020 13:54:Angelina Cerda RN) 53j. Test Result: Negative (02/18/2020 13:54:Harvinder Browne, RN) Obstetric Procedures 54a, b, c. Obstetric Procedures: Ultrasound; NST (02/18/2020 13:54:Mary Benton RN) Cigarette Smoking Cigarette Smoking: Never Smoker. [id number] (02/18/2020 13:54:Harvinder Browne, RN) Onset of Labor 56a. PROM >12 Hrs: 0.00 (02/18/2020 13:54:QS system process) 56b. Precipitous Labor <3 Hrs: 3 (02/18/2020 13:54:QS system process) 56c. Prolonged Labor > 20 Hrs: 3 (02/18/2020 13:54:QS system process) 57a. Induction of Labor: N/A (02/18/2020 13:54:Mary Benton RN) 57c. Non-Vertex Presentation A: Vertex (02/18/2020 13:54:Mary Benton RN) 57d. Steroids - Lung Mat: None (02/18/2020 13:54:Mary Benton RN) 57d. Steroids - Lung Mat: Not Applicable (02/18/2020 13:54:Mary Benton RN) 57f. Mat [place] or Temp >100.4: 98.4 (02/18/2020 13:54:Mary Benton RN) 57g. Moderate/Heavy Meconium: Clear (02/18/2020 13:54:Mary Benton RN) 57h. Intolerance of Labor: Active Genital Herpes (02/18/2020 13:54:Mary Benton RN) : prodromal sx (02/18/2020 13:54:Mary Benton RN) 57i. Epidural/Spinal Anesthesia: None (02/18/2020 13:54:Mary Benton RN) Method of Delivery 58a. Forceps - Unsuccessful A: N/A (02/18/2020 13:54:Mary Benton RN) 58b. Vacuum - Unsuccessful A: N/A (02/18/2020 13:54:Mary Benton RN) 58c. Presentation at 58c. Presentation at - A : Vertex (02/18/2020 13:54:Mary Benton RN) 58c. Presentation at - A : N/A (02/18/2020 13:54:Mary Benton RN) 58c. Presentation at - A : Cephalic (06/12/2020 09:42:Mary Benton RN) Final Route and Method of Del 58d. Baby A Route/Delivery: (02/18/2020 13:54:Mary Benton RN) 58e. Trial of Labor Attempted: No (02/18/2020 13:54:Mary Benton RN) 58e. Trial of Labor Attempted A: N/A (02/18/2020 13:54:Mary Benton RN) 58e. Trial of Labor Attempted B: N/A (02/18/2020 13:54:Mary Benton RN) Maternal Morbidity 59b. 3rd or 4th Degree Lacs: None (02/18/2020 13:54:Mary Benton RN) Birthweight Baby A: 3232 (02/18/2020 13:54:Mili Winter RN) 60a. Pounds : 7 (02/18/2020 13:54:QS system process) 60b. Ounces: 2 (02/18/2020 13:54:QS system process) 61. GA at Delivery Baby A: 39.0 (02/18/2020 13:54:Mary MackALBANIA new) : Full Term- 39- 40.6 Weeks (02/18/2020 13:54:QS system process) 62a. 5 Minute Baby A: 9 (02/18/2020 13:54:QS system process)
--- NOTE | 2020-06-12 13:44 | Delivery Summary ---
Del Sum A-C Datetime Report Generated by CPN: 06/12/2020 13:44 DELIVERY PERSONNEL DELIVERY PERSONNEL: [id number] Delivery Doctor:: Letty Murdock MD QA AUDITOR:: Luisito Mabry, QA AUDITOR Cloth Grader:: Mary Benton RN Neonatal Nurse Practitioner:: BENJAMIN Pleitez Nursery Nurse:: Mili Winter RN Nursery Nurse:: Hoda Johns RN Geological Engineer/PROTOTYPE ASSEMBLER ELECTRONICS: Katerina Raya CST Geological Engineer/PROTOTYPE ASSEMBLER ELECTRONICS: Emmima Galvan, FRAME TABLE OPERATOR MATERNAL INFORMATION Delivery Anesthesia: Spinal Medications After Delivery: Pitocin Bolus-Please Comment; Pitocin 30 Units in 500ml NS/D5W Meds After Delivery Comment: 30 units in 500mLs NS open bolus; 2nd 30 units in 500mLs NS at 250mLs Delivery QBL: 305 Maternal Complications: Other Complication Details: sx of prodomal HSV outbreak LABOR SUMMARY EDC: 06/19/2020 00:00 No. Babies in Womb: 1 Attempted: No Labor Anesthesia: None LABOR INFORMATION Reason for Induction: Not Applicable Onset of Labor: 06/12/2020 07:30 Oxytocin: N/A Group B Beta Strep: Negative Steroids Given: None Reason Steroids Not Administered: Not Applicable MEMBRANES Membranes Rupture Method: Artificial Rupture of Membranes: 06/12/2020 11:11 Length of Rupture (hr): 0.00 Amniotic Fluid Color: Clear Amniotic Fluid Amount: Small Amniotic Fluid Odor: Normal STAGES OF LABOR Stage 3 hr: 0 Stage 3 min: 2 Total Time in Labor hr: 3 Total Time in Labor min: 43 VAGINAL DELIVERY Episiotomy: None Laceration #1: None Laceration Extension #1: N/A Laceration Repair: Not Applicable Sponge Count Correct: N/A Sharps Count Correct: N/A CSECTION DELIVERY Primary Indication: Active Genital Herpes Other Primary Indication: prodromal sx CSection Urgency: Non-Scheduled CSection Incidence: Primary Labor: Labor Elective: Elective CSection Incision: Lower Uterine Transverse BABY A INFORMATION Infant Delivery Date/Time: 06/12/2020 11:11 Method of Delivery: Nurse Controlled Delivery: No Born in Route : No : N/A Forceps: N/A Vacuum Extraction: N/A Shoulder Dystocia : No PRESENTATION/POSITION BABY A Presentation: Cephalic Cephalic Presentation: Vertex Breech Presentation: N/A PLACENTA INFORMATION BABY A Placenta Delivery Time : 06/12/2020 11:13 Placenta Method of Delivery: Manual Removal Placenta Status: Delivered SCORES BABY A Heart Rate 1 min: >100 bpm Resp Effort 1 min: Good Cry Reflex Irritability 1 min: Cough or Sneeze or Pulls Away Muscle Tone 1 min: Active Motion Color 1 min: Blue/Pale Resuscitation Effort 1 min: Tactile Stimulation SCORE 1 MIN: 8 Heart Rate 5 min: >100 bpm Resp Effort 5 min: Good Cry Reflex Irritability 5 min: Cough or Sneeze or Pulls Away Muscle Tone 5 min: Active Motion Color 5 min: Body [place], Extremities Blue Resuscitation Effort 5 min: Tactile Stimulation SCORE 5 MIN: 9 INFANT INFORMATION BABY A Gestational Age at Delivery: 39.0 Gestational Status: Full Term- 39- 40.6 Weeks Infant Outcome : Liveborn Condition : Stable Infant Sex: Female IDENTIFICATION BABY A Verification Date/Time: 06/12/2020 11:14 ID Band Number: [id number] Mother's Name Verified: Yes Infant RN Verifying Infant: Ghulam Benton, RN Additional Verifying Personnel: AMandeep Johns, RN WEIGHT/LENGTH BABY A Birthweight (gm): 3232 Weight (lb): 7 Infant Weight (oz): 2 Length (in): 20.00 Length (cm): 50.80 CORD INFORMATION BABY A No. Cord Vessels: 3 Nuchal Cord : N/A Cord Blood Taken: Yes-For Storage (Mom's Blood type +) BABY B INFORMATION : N/A
[2020-06-12] MEDS ORDERED: HYDROMORPHONE HCL INJ/PF 2 MG/ML AMPULE ONE (14:19)
[2020-06-12] MEDS: HYDROMORPHONE HCL INJ/PF 2 MG/ML AMPULE IV PRN ×3 (14:20→22:54)
[2020-06-12] MEDS: OXYCODONE-ACETAMINOPHEN 5-325 MG TABLET PO PRN ×2 (16:41→20:41)
[2020-06-12] MEDS: KETOROLAC TROMETHAMINE INJ/PF 30 MG/1 ML SDV IV SCH (17:50)
[2020-06-12] MEDS: DOCUSATE SODIUM 100 MG CAPSULE PO SCH (17:51)
[2020-06-12] MEDS: VALACYCLOVIR HCL 500 MG TABLET PO SCH ×2 (22:21→22:43)
[2020-06-13] MEDS: KETOROLAC TROMETHAMINE INJ/PF 30 MG/1 ML SDV IV SCH (02:11)
[2020-06-13] MEDS: OXYCODONE-ACETAMINOPHEN 5-325 MG TABLET PO PRN ×4 (05:31→19:49)
[2020-06-13 06:54] LABS: HEMATOCRIT 32.9 % (36.0-47.0); HEMOGLOBIN 10.6 g/dL (12.0-15.5); MEAN CORPUSCULAR HEMOGLOBIN 26.7 pg (27.0-33.4); MEAN CORPUSCULAR HGB CONC 32.2 g/dL (32.0-36.0); MEAN CORPUSCULAR VOLUME 83 fl (80-97); PLATELET COUNT 119 10^3/uL (150-450); RED BLOOD COUNT 3.96 10^6/uL (3.72-5.28); RED CELL DISTRIBUTION WIDTH 16.9 % (11.5-14.0)
[2020-06-13 07:52] LABS: HSV-I IGG AB <0.91 index (0.00-0.90)
--- NOTE | 2020-06-13 10:04 | PDOC PROGRESS REPORT ---
Subjective-OB Progress Note for:: 06/13/20 Subjective: Pt doing well, no concerns. She reports light bleeding, reg diet, no flatus yet and has been out of bed and is able to void. She c/o pain. Physical Exam (OB) Vital Signs: Temp Pulse Resp BP Pulse Ox 97.7 F 58 L 16 112/57 L 98 06/13/20 07:30 06/13/20 07:30 06/13/20 07:30 06/13/20 07:30 06/13/20 07:30 Intake & Output 06/12/20 06/13/20 06/14/20 06:59 06:59 06:59 Intake Total 900 300 Output Total 2650 Balance -1750 300 Weight 76.9 kg - PIH/Pre-Eclampsia DTR's: 1 + Clonus: Negative Headache: Absent Epigastric Pain: No Visual Changes: No - Dressing Removed: No - no dressing present Incision: Open, Well Approximated Closure Type: Surgical Glue - Maternal Morbidity 59. Maternal Morbidity (serious complications experinced by the mother associated with labor and delivery: None of the above - Lochia Lochia Amount: Scant < 10 ml Lochia Color: Rubra/Red - Abdomen Description: Firm, Soft Hernia Present: No Fundal Description: Firm, Midline Fundal Height: u/u - u/2 Objective-Diagnostic Laboratory: 06/13/20 06:30 06/12/20 06/12/20 06/12/20 09:22 10:08 10:08 WBC 9.4 RBC 4.42 Hgb 11.9 L Hct 36.9 MCV 84 MCH 27.0 MCHC 32.3 RDW 16.8 H Plt Count 150 Urine Color YELLOW Urine Appearance SLIGHTLY-CLOUDY Urine pH 6.0 Ur Specific [place] 1.018 Urine Protein NEGATIVE Urine Glucose (UA) NEGATIVE Urine Ketones NEGATIVE Urine Blood NEGATIVE Urine Nitrite NEGATIVE Ur Leukocyte Esterase SMALL H Blood Type O POSITIVE Antibody Screen NEGATIVE 06/13/20 06:30 WBC 12.0 H RBC 3.96 Hgb 10.6 L Hct 32.9 L MCV 83 MCH 26.7 L MCHC 32.2 RDW 16.9 H Plt Count 119 L Urine Color Urine Appearance Urine pH Ur Specific [place] Urine Protein Urine Glucose (UA) Urine Ketones Urine Blood Urine Nitrite Ur Leukocyte Esterase Blood Type Antibody Screen Assessment and Plan(PN) - Assessment and Plan (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 Qualified Code(s): A60.04 - Herpesviral vulvovaginitis Is this a current diagnosis for this admission?: Yes (2) S/P primary low transverse Is this a current diagnosis for this admission?: Yes (3) Acute blood loss anemia Is this a current diagnosis for this admission?: Yes (4) Encounter for induction of labor Is this a current diagnosis for this admission?: Yes (5) Normal vaginal delivery Is this a current diagnosis for this admission?: Yes - Time Spent with Patient Time with patient: Less than 15 minutes Medications reviewed and adjusted accordingly: Yes - Disposition Anticipated Discharge Disposition: Home, Self Care Anticipated Discharge Timeframe: within 24 hours
[2020-06-13] MEDS: DOCUSATE SODIUM 100 MG CAPSULE PO SCH ×2 (11:42→19:00)
[2020-06-13] MEDS: VALACYCLOVIR HCL 500 MG TABLET PO SCH ×2 (11:42→21:23)
[2020-06-13] MEDS: PRENATAL VITAMIN W DHA CAPSULE PO SCH (11:42)
[2020-06-13] MEDS: IBUPROFEN 800 MG TABLET PO SCH ×2 (11:42→19:00)
[2020-06-13] MEDS ORDERED: IBUPROFEN 800 MG TABLET PO SCH ×2 (14:00→18:00)
[2020-06-14] MEDS: IBUPROFEN 800 MG TABLET PO SCH ×2 (01:24→09:37)
[2020-06-14] MEDS: OXYCODONE-ACETAMINOPHEN 5-325 MG TABLET PO PRN ×2 (02:20→08:20)
[2020-06-14] MEDS: DOCUSATE SODIUM 100 MG CAPSULE PO SCH (09:36)
[2020-06-14] MEDS: PRENATAL VITAMIN W DHA CAPSULE PO SCH (09:39)
[2020-06-14] MEDS: VALACYCLOVIR HCL 500 MG TABLET PO SCH (09:39)
--- NOTE | 2020-06-14 14:08 | PDOC DISCHARGE SUMMARY ---
<EMELYN ESTEVEZ - Last Filed: 06/14/20 14:07> Impression - Admit/DC Date/PCP Admission Date/Primary Care Provider: 06/12/20 09:52 BROWN ARANGO MD Discharge Date: 06/14/20 - Assessment Summary: The patient presented in active labor and underwent a primary c section for hsv prodrome. She did well afterwards and is ready to go home today. - Additional Information Discharge Diet: Regular Discharge Activity: Balance Activity w/Rest, Pelvic Rest, No tub bath Referrals: BROWN ARANGO MD [Primary Care Provider] - Prescriptions: Oxycodone HCl/Acetaminophen [Percocet 5-325 mg Tablet] 2 tab PO Q4HP PRN #20 tablet PRN Reason: Ibuprofen [Motrin 800 mg Tablet] 800 mg PO Q8HP PRN #60 tablet PRN Reason: Home Medications: Ibuprofen [Motrin 800 mg Tablet] 800 mg PO Q8HP PRN #60 tablet 06/14/20 Oxycodone HCl/Acetaminophen [Percocet 5-325 mg Tablet] 2 tab PO Q4HP PRN #20 tablet 06/14/20 Hospital Course 59. Maternal Morbidity (serious complications experinced by the mother associated with labor and delivery: None of the above Results Laboratory Results: WBC 12.0 10^3/uL (4.0-10.5) H 06/13/20 06:30 RBC 3.96 10^6/uL (3.72-5.28) 06/13/20 06:30 Hgb 10.6 g/dL (12.0-15.5) L 06/13/20 06:30 Hct 32.9 % (36.0-47.0) L 06/13/20 06:30 MCV 83 fl (80-97) 06/13/20 06:30 MCH 26.7 pg (27.0-33.4) L 06/13/20 06:30 MCHC 32.2 g/dL (32.0-36.0) 06/13/20 06:30 RDW 16.9 % (11.5-14.0) H 06/13/20 06:30 Plt Count 119 10^3/uL (150-450) L 06/13/20 06:30 Urine Color YELLOW 06/12/20 09:22 Urine Appearance SLIGHTLY-CLOUDY 06/12/20 09:22 Urine pH 6.0 (5.0-9.0) 06/12/20 09:22 Ur Specific [place] 1.018 06/12/20 09:22 Urine Protein NEGATIVE mg/dL (NEGATIVE) 06/12/20 09:22 Urine Glucose (UA) NEGATIVE mg/dL (NEGATIVE) 06/12/20 09:22 Urine Ketones NEGATIVE mg/dL (NEGATIVE) 06/12/20 09:22 Urine Blood NEGATIVE (NEGATIVE) 06/12/20 09:22 Urine Nitrite NEGATIVE (NEGATIVE) 06/12/20 09:22 Urine Bilirubin NEGATIVE (NEGATIVE) 06/12/20 09:22 Urine Urobilinogen NEGATIVE mg/dL (<2.0) 06/12/20 09:22 Ur Leukocyte Esterase SMALL (NEGATIVE) H 06/12/20 09:22 Urine Ascorbic Acid NEGATIVE (NEGATIVE) 06/12/20 09:22 Urine Opiates Screen NEGATIVE 06/12/20 09:22 Urine Methadone Screen NEGATIVE 06/12/20 09:22 Ur Barbiturates Screen NEGATIVE 06/12/20 09:22 Ur Phencyclidine Scrn NEGATIVE 06/12/20 09:22 Ur Amphetamines Screen NEGATIVE 06/12/20 09:22 U Benzodiazepines Scrn NEGATIVE 06/12/20 09:22 Urine Cocaine Screen NEGATIVE 06/12/20 09:22 U Marijuana (THC) Screen NEGATIVE 06/12/20 09:22 RPR NONREACTIVE (NONREACTIVE) 06/12/20 10:08 HSV I&II IgM Ab <0.91 RATIO (0.00-0.90) 06/12/20 10:08 HSV I IgG Ab <0.91 index (0.00-0.90) 06/12/20 10:08 HSV II Specific Ab < 0.91 index (0.00-0.90) 06/12/20 10:08 Blood Type O POSITIVE 06/12/20 10:08 Antibody Screen NEGATIVE 06/12/20 10:08 Plan Plan of Treatment: follow up in one week at [facility] for incision check <HERBERT CASTRO - Last Filed: 06/14/20 14:12> Impression - Admit/DC Date/PCP Admission Date/Primary Care Provider: 06/12/20 09:52 BROWN ARANGO MD - Additional Information Resuscitation Status: Full Code Discharge Diet: Regular Results Laboratory Results: WBC 12.0 10^3/uL (4.0-10.5) H 06/13/20 06:30 RBC 3.96 10^6/uL (3.72-5.28) 06/13/20 06:30 Hgb 10.6 g/dL (12.0-15.5) L 06/13/20 06:30 Hct 32.9 % (36.0-47.0) L 06/13/20 06:30 MCV 83 fl (80-97) 06/13/20 06:30 MCH 26.7 pg (27.0-33.4) L 06/13/20 06:30 MCHC 32.2 g/dL (32.0-36.0) 06/13/20 06:30 RDW 16.9 % (11.5-14.0) H 06/13/20 06:30 Plt Count 119 10^3/uL (150-450) L 06/13/20 06:30 Urine Color YELLOW 06/12/20 09:22 Urine Appearance SLIGHTLY-CLOUDY 06/12/20 09:22 Urine pH 6.0 (5.0-9.0) 06/12/20 09:22 Ur Specific [place] 1.018 06/12/20 09:22 Urine Protein NEGATIVE mg/dL (NEGATIVE) 06/12/20 09:22 Urine Glucose (UA) NEGATIVE mg/dL (NEGATIVE) 06/12/20 09:22 Urine Ketones NEGATIVE mg/dL (NEGATIVE) 06/12/20 09:22 Urine Blood NEGATIVE (NEGATIVE) 06/12/20 09:22 Urine Nitrite NEGATIVE (NEGATIVE) 06/12/20 09:22 Urine Bilirubin NEGATIVE (NEGATIVE) 06/12/20 09:22 Urine Urobilinogen NEGATIVE mg/dL (<2.0) 06/12/20 09:22 Ur Leukocyte Esterase SMALL (NEGATIVE) H 06/12/20 09:22 Urine Ascorbic Acid NEGATIVE (NEGATIVE) 06/12/20 09:22 Urine Opiates Screen NEGATIVE 06/12/20 09:22 Urine Methadone Screen NEGATIVE 06/12/20 09:22 Ur Barbiturates Screen NEGATIVE 06/12/20 09:22 Ur Phencyclidine Scrn NEGATIVE 06/12/20 09:22 Ur Amphetamines Screen NEGATIVE 06/12/20 09:22 U Benzodiazepines Scrn NEGATIVE 06/12/20 09:22 Urine Cocaine Screen NEGATIVE 06/12/20 09:22 U Marijuana (THC) Screen NEGATIVE 06/12/20 09:22 RPR NONREACTIVE (NONREACTIVE) 06/12/20 10:08 HSV I&II IgM Ab <0.91 RATIO (0.00-0.90) 06/12/20 10:08 HSV I IgG Ab <0.91 index (0.00-0.90) 06/12/20 10:08 HSV II Specific Ab < 0.91 index (0.00-0.90) 06/12/20 10:08 Blood Type O POSITIVE 06/12/20 10:08 Antibody Screen NEGATIVE 06/12/20 10:08
[2020-06-14 15:11] VITALS: BP 120/65
== END 2020-06-14 15:57 | disposition home or self-care (01) | DRG 788 ==
LOC: LC 09:15 → LR 09:52 → 2S 14:37
PROVIDERS: ADMIT Obstetrics & Gynecology; ATTEND Obstetrics & Gynecology
PROC: 10D00Z1 Extraction of Products of Conception, Low, Open Approach (ICD-10-PCS; principal; 2020-06-12)
DX: O98.32 Other infections with a predominantly sexual mode of transmission complicating childbirth (principal); A60.04 Herpesviral vulvovaginitis; O99.02 Anemia complicating childbirth; D64.9 Anemia, unspecified; Z3A.39 39 weeks gestation of pregnancy; Z37.0 Single live birth; Z79.899 Other long term (current) drug therapy; Z91.013 Allergy to seafood; Z87.59 Personal history of other complications of pregnancy, childbirth and the puerperium
CPT/HCPCS: 1961; 36415; 80307; 81005; 85027; 86592; 86695; 86696; 86850; 86900; 86901; 94799; 99140; J0131; J0690; J1170; J1200; J1885; J2250; J2370; J2405; J2590; J3010; J3490